=== PATIENT | female | born 1950 | race Caucasian/White ===

== ENCOUNTER 2020-12-31 14:24 | Emergency (ER) | payer MEDICARE, OTHER, MEDICAID ==
[~2020-12-31] VITALS: Ht 160 cm; Wt 48.5 kg
[~2020-12-31 14:24] MED LIST: CLON0.5T PO; HYDR-1421 PO; SERT25TA84 PO
[2020-12-31 14:57] VITALS: BP 108/60
[2020-12-31] MEDS ORDERED: ACETAMINOPHEN 325 MG TAB PO ONE (16:00)
== END 2020-12-31 16:36 | disposition home or self-care (01) ==
LOC: ER 14:24
DX: S63.502A Unspecified sprain of left wrist, initial encounter (principal); Z90.710 Acquired absence of both cervix and uterus; Z88.6 Allergy status to analgesic agent; W18.09XA Striking against other object with subsequent fall, initial encounter; Y93.89 Activity, other specified; Y92.89 Other specified places as the place of occurrence of the external cause; Y99.8 Other external cause status
CPT/HCPCS: 73110

== ENCOUNTER 2021-08-09 12:47 | Emergency (ER) | payer MEDICARE, OTHER, MEDICAID ==
[~2021-08-09] VITALS: Ht 160 cm; Wt 45.4 kg
[2021-08-09] MEDS ORDERED: ASPirin 81 mg TAB PO ONE (13:00)
[2021-08-09 14:36] LABS: Basophils # (auto) 0 10 ^3/uL (0-0.2); Basophils % (auto) 0.3 % (0.0-2.0); Eosinophils # (auto) 0 10 ^3/uL (0-0.8); Eosinophils % (auto) 0.2 % (0.0-7.0); Hematocrit 31.2 % (36.0-46.0); Hemoglobin 10.1 g/dL (12.2-16.2); Lymphocytes # (auto) 1.5 10 ^3/uL (0.4-5.4); Lymphocytes % (auto) 22.2 % (10.0-50.0); Mean Corpuscular Hemoglobin 28.1 pg (28.0-32.0); Mean Corpuscular Hgb Conc. 32.3 g/dL (32.0-36.0); Mean Corpuscular Volume 87.1 fL (80.0-100.0); Monocytes # (auto) 0.8 10 ^3/uL (0-1.3); Monocytes % (auto) 11.4 % (0.0-12.0); Neutrophils # (auto) 4.5 10 ^3/uL (1.6-8.6); Neutrophils % (auto) 65.9 % (37.0-80.0); Nucleated Red Blood Cells % 0.1 %; Red Blood Cells 3.58 10^6/uL (4.0-5.20); Red Cell Distribution Width 19.8 % (11.8-14.3); White Blood Cell 6.8 10^3/uL (4.4-10.8)
[2021-08-09 14:44] LABS: Albumin 2.7 g/dL (3.4-5.0); Calcium 8.6 mg/dL (8.5-10.1); Magnesium 2.7 mg/dL (1.6-2.6); Potassium 3.6 mmol/L (3.5-5.1)
[2021-08-09 14:51] LABS: BUN/Creatinine Ratio 15.9; Bilirubin, Total 0.4 mg/dL (0.2-1.0)
[2021-08-09 15:18] VITALS: BP 97/46
== END 2021-08-09 15:37 | disposition home or self-care (01) ==
LOC: ER 12:47
DX: R07.89 Other chest pain (principal); R06.02 Shortness of breath; R11.2 Nausea with vomiting, unspecified; Z90.710 Acquired absence of both cervix and uterus; Z90.89 Acquired absence of other organs; Z88.6 Allergy status to analgesic agent
CPT/HCPCS: 36415; 71046; 80053; 83735; 84484; 85025; 85379; 93005

== ENCOUNTER 2022-01-07 07:58 | Inpatient (IN) | payer MEDICARE, OTHER, MEDICAID ==
[~2022-01-07] VITALS: Ht 170.2 cm; Wt 38.6 kg
[2022-01-07] VITALS (18 sets, daily range): BP systolic 83–113; BP diastolic 39–52
[2022-01-07] MEDS ORDERED: MORPHINE SULFATE 4 MG/ML SYR/VIAL IV ONE (08:15)
[2022-01-07] MEDS ORDERED: SODIUM CHLORIDE 0.9% 500 ML IVB ONE (08:15)
[2022-01-07] MEDS ORDERED: PANTOPRAZOLE 40 MG/10 ML VIAL INJ IV ONE (08:15)
[2022-01-07] MEDS ORDERED: HYDROmorphone HCL 2 MG/ML VL/or syr IV ONE ×2 (08:30→10:00)
[2022-01-07] MEDS ORDERED: LOPERAMIDE HCL 2 MG CAP/TAB PO ONE (10:00)
[2022-01-07 10:16] LABS: Hemoglobin 15.3 g/dL (12.2-16.2); Mean Corpuscular Hemoglobin 29.9 pg (28.0-32.0); Mean Corpuscular Hgb Conc. 33.3 g/dL (32.0-36.0); Red Blood Cells 5.11 10^6/uL (4.0-5.20); White Blood Cell 13.9 10^3/uL (4.4-10.8)
[2022-01-07 10:21] LABS: Basophils % (manual) 0 (0.0-2.0); Blast Cells 0; Metamyelocytes % 0; Myelocytes % 0; Promyelocytes % 0; Reactive Lymphocytes 0
[2022-01-07 10:38] LABS: Band Neutrophils % (manual) 57; Eosinophils % (manual) 1 (0-7); Lymphocytes % (manual) 14 (10.0-50.0); Monocytes % (manual) 6 (0-12)
[2022-01-07] MEDS: PIPERACILLIN-TAZOB 3.375GM 100 ML IV ONE ×2 (11:38→17:07)
[2022-01-07] MEDS: metroNIDAZOLE 500MG/100ML 100 ML IV ONE ×2 (11:39→12:13)
[2022-01-07 12:30] LABS: INR > 8.0 (0.9-1.15)
[2022-01-07] MEDS ORDERED: PHYTONADIONE (VIT K)10 MG/ML 1ML VIAL SUBCUT ONE (12:30)
[2022-01-07 13:13] LABS: Albumin 2.3 g/dL (3.4-5.0); Calcium 7.7 mg/dL (8.5-10.1); Magnesium 1.9 mg/dL (1.6-2.6); Potassium 3.4 mmol/L (3.5-5.1)
[2022-01-07 13:17] LABS: BUN/Creatinine Ratio 18.2; Bilirubin, Total 0.4 mg/dL (0.2-1.0); Total Protein 6.4 g/dL (6.4-8.2)
[2022-01-07] MEDS ORDERED: NITROGLYCERIN 0.4 MG SL TAB SL PRN (15:15)
[2022-01-07] MEDS ORDERED: ONDANSETRON HCL 4 MG/2 ML VIAL IV PRN (15:15)
[2022-01-07] MEDS ORDERED: MORPHINE SULFATE INJ 2 MG/ml SYRG IV PRN ×2 (15:15)
[2022-01-07 15:24] LABS: INR 2.45 (0.9-1.15)
[2022-01-07] MEDS: SODIUM CHLORIDE 0.9% 1,000 ML IV SCH (17:08)
[2022-01-07] MEDS ORDERED: phytonadione 2.5 MG in SODIUM CHL 0.9% 50 ML IV ONE (17:30)
[2022-01-07] MEDS: HYDROmorphone HCL 2 MG/ML VL/or syr IV PRN ×2 (18:37→22:51)
[2022-01-07] MEDS: MEROPENEM 1GM IVPB 100 ML IV SCH (22:30)
[2022-01-08] VITALS (91 sets, daily range): BP systolic 56–186; BP diastolic 33–114
[2022-01-08] MEDS: SODIUM CHLORIDE 0.9% 1,000 ML IV SCH (03:32)
[2022-01-08 05:38] LABS: Basophils # (auto) 0 10 ^3/uL (0-0.2); Basophils % (auto) 0.1 % (0.0-2.0); Eosinophils # (auto) 0 10 ^3/uL (0-0.8); Hematocrit 33.1 % (36.0-46.0); Hemoglobin 11.3 g/dL (12.2-16.2); Lymphocytes % (auto) 15.8 % (10.0-50.0); Mean Corpuscular Hemoglobin 30.5 pg (28.0-32.0); Mean Corpuscular Hgb Conc. 34.2 g/dL (32.0-36.0); Mean Corpuscular Volume 89.3 fL (80.0-100.0); Monocytes # (auto) 1.4 10 ^3/uL (0-1.3); Monocytes % (auto) 11.2 % (0.0-12.0); Neutrophils # (auto) 9.3 10 ^3/uL (1.6-8.6); Neutrophils % (auto) 72.9 % (37.0-80.0); White Blood Cell 12.8 10^3/uL (4.4-10.8)
[2022-01-08 05:49] LABS: INR 1.4 (0.9-1.15); Partial Thromboplastin Time 41.4 sec (23.6-33.0)
[2022-01-08 06:07] LABS: Albumin 1.5 g/dL (3.4-5.0); Calcium 6.6 mg/dL (8.5-10.1); Magnesium 1.7 mg/dL (1.6-2.6)
[2022-01-08 06:09] LABS: BUN/Creatinine Ratio 33.3
[2022-01-08 06:12] LABS: Bilirubin, Total 0.5 mg/dL (0.2-1.0); Total Protein 4.2 g/dL (6.4-8.2)
[2022-01-08 06:18] LABS: Potassium 2.6 mmol/L (3.5-5.1)
[2022-01-08] MEDS: MEROPENEM 1GM IVPB 100 ML IV SCH ×3 (06:45→22:00)
[2022-01-08] MEDS: POTASSIUM CHL 20MEQ/100ML 100 ML IV SCH ×2 (07:33→11:51)
[2022-01-08] MEDS ORDERED: SUCCINYLCHOLINE CHLORIDE 20 MG/ML 10ML VIAL IV ONE (08:32)
[2022-01-08] MEDS ORDERED: fentaNYL CITRATE 100 MCG/2 ML VL ONE (08:41)
[2022-01-08] MEDS ORDERED: MIDAZOLAM HCL 2MG/2ML 2ml VIAL (1mg/ml) ONE (08:41)
[2022-01-08] MEDS ORDERED: HYDROCORTISONE SOD SUCC 100 MG/2ML INJ VIAL ONE (08:43)
[2022-01-08] MEDS ORDERED: ROCURONIUM 10MG/ML 10ML VIAL IV ONE (08:46)
[2022-01-08] MEDS ORDERED: HYDROmorphone HCL 2 MG/ML VL/or syr ONE (09:16)
[2022-01-08] MEDS ORDERED: ONDANSETRON HCL 4 MG/2 ML VIAL ONE (09:55)
[2022-01-08] MEDS ORDERED: ETOMIDATE (2MG/ML) 20ML VIAL IV ONE (09:55)
[2022-01-08] MEDS ORDERED: POVIDONE IODINE 10 % TOPICAL OINT 30GM TOP ONE (10:29)
[2022-01-08] MEDS: MIDAZOLAM DRIP 50 mg/50mL 50 ML IV SCH ×2 (11:00→21:28)
[2022-01-08] MEDS ORDERED: ONDANSETRON HCL 4 MG/2 ML VIAL IV PRN (11:15)
[2022-01-08] MEDS ORDERED: HYDROmorphone HCL 2 MG/ML VL/or syr IV PRN ×2 (11:15)
[2022-01-08] MEDS ORDERED: ePHEDrine SULFATE 50 MG/ML AMP IV PRN (11:15)
[2022-01-08] MEDS ORDERED: METOCLOPRAMIDE HCL 5MG/ml INJ 2ml VIAL IV PRN (11:15)
[2022-01-08] MEDS ORDERED: SOD CHL 0.9%/ KCL 40MEQ 1,000 ML IV SCH (11:45)
[2022-01-08] MEDS: PROPOFOL 100 ML IV SCH (11:48)
[2022-01-08] MEDS ORDERED: POTASSIUM CHLORIDE 40 MEQ in SOD CHL 0.45% 1,000 ML IV SCH (12:00)
[2022-01-08 12:51] LABS: Basophils # (auto) 0 10 ^3/uL (0-0.2); Basophils % (auto) 0.2 % (0.0-2.0); Eosinophils # (auto) 0 10 ^3/uL (0-0.8); Hematocrit 38.9 % (36.0-46.0); Hemoglobin 13.2 g/dL (12.2-16.2); Lymphocytes # (auto) 1.1 10 ^3/uL (0.4-5.4); Lymphocytes % (auto) 9.4 % (10.0-50.0); Mean Corpuscular Hemoglobin 30.8 pg (28.0-32.0); Mean Corpuscular Hgb Conc. 33.9 g/dL (32.0-36.0); Mean Corpuscular Volume 90.7 fL (80.0-100.0); Monocytes # (auto) 0.6 10 ^3/uL (0-1.3); Monocytes % (auto) 5.4 % (0.0-12.0); Neutrophils # (auto) 10.2 10 ^3/uL (1.6-8.6); Red Blood Cells 4.29 10^6/uL (4.0-5.20); Red Cell Distribution Width 15.5 % (11.8-14.3)
[2022-01-08 13:08] LABS: INR 1.4 (0.9-1.15); Partial Thromboplastin Time 37.9 sec (23.6-33.0)
[2022-01-08 15:59] LABS: Albumin 1.4 g/dL (3.4-5.0); BUN/Creatinine Ratio 37.5; Calcium 6.1 mg/dL (8.5-10.1); Potassium 4.1 mmol/L (3.5-5.1)
[2022-01-08 16:02] LABS: Bilirubin, Total 0.3 mg/dL (0.2-1.0); Total Protein 4.3 g/dL (6.4-8.2)
[2022-01-08] MEDS: fentaNYL Drip 2500mCg/250mlNS 250 ML IV SCH (16:10)
[2022-01-08] MEDS: D5W/SOD CHL 0.45%/KCL 20MEQ 1,000 ML IV SCH (16:56)
[2022-01-08] MEDS: metroNIDAZOLE 500MG/100ML 100 ML IV SCH ×2 (16:57→22:22)
[2022-01-09] VITALS (101 sets, daily range): BP systolic 82–144; BP diastolic 25–63
[2022-01-09 06:32] LABS: Basophils # (auto) 0 10 ^3/uL (0-0.2); Basophils % (auto) 0.2 % (0.0-2.0); Eosinophils # (auto) 0 10 ^3/uL (0-0.8); Eosinophils % (auto) 0.2 % (0.0-7.0); Hematocrit 35.9 % (36.0-46.0); Lymphocytes # (auto) 2.5 10 ^3/uL (0.4-5.4); Lymphocytes % (auto) 23.1 % (10.0-50.0); Mean Corpuscular Hemoglobin 30.4 pg (28.0-32.0); Mean Corpuscular Hgb Conc. 33.3 g/dL (32.0-36.0); Mean Corpuscular Volume 91.2 fL (80.0-100.0); Monocytes # (auto) 1.2 10 ^3/uL (0-1.3); Monocytes % (auto) 11.1 % (0.0-12.0); Neutrophils % (auto) 65.4 % (37.0-80.0); Nucleated Red Blood Cells % 0.2 %; Red Blood Cells 3.94 10^6/uL (4.0-5.20); Red Cell Distribution Width 15.8 % (11.8-14.3); White Blood Cell 10.7 10^3/uL (4.4-10.8)
[2022-01-09 06:40] LABS: Potassium 3.4 mmol/L (3.5-5.1)
[2022-01-09 06:46] LABS: Albumin 1.4 g/dL (3.4-5.0); BUN/Creatinine Ratio 25.7; Calcium 6.4 mg/dL (8.5-10.1)
[2022-01-09 06:49] LABS: Bilirubin, Total 0.4 mg/dL (0.2-1.0); Total Protein 4.2 g/dL (6.4-8.2)
[2022-01-09 06:59] LABS: INR 1.17 (0.9-1.15)
[2022-01-09] MEDS: MEROPENEM 1GM IVPB 100 ML IV SCH ×3 (07:52→22:00)
[2022-01-09] MEDS: D5W/SOD CHL 0.45%/KCL 20MEQ 1,000 ML IV SCH ×3 (08:59→12:45)
[2022-01-09] MEDS ORDERED: cefTRIAXone 1GM/50ML D5W 50 ML IV SCH (09:00)
[2022-01-09] MEDS: fentaNYL Drip 2500mCg/250mlNS 250 ML IV SCH ×2 (11:00→16:26)
[2022-01-09] MEDS: PROPOFOL 100 ML IV SCH ×2 (11:00→20:00)
[2022-01-09] MEDS ORDERED: POTASSIUM CHL 20MEQ/100ML 100 ML IV ONE (11:30)
[2022-01-10] VITALS (101 sets, daily range): BP systolic 88–155; BP diastolic 12–98
[2022-01-10] MEDS: MIDAZOLAM DRIP 50 mg/50mL 50 ML IV SCH (01:35)
[2022-01-10 05:29] LABS: Potassium 3.9 mmol/L (3.5-5.1)
[2022-01-10 05:42] LABS: BUN/Creatinine Ratio 23.3; Calcium 6.5 mg/dL (8.5-10.1)
[2022-01-10] MEDS: MEROPENEM 1GM IVPB 100 ML IV SCH ×3 (06:00→22:20)
[2022-01-10] MEDS: D5W/SOD CHL 0.45%/KCL 20MEQ 1,000 ML IV SCH ×3 (07:56→14:52)
[2022-01-10] MEDS: fentaNYL Drip 2500mCg/250mlNS 250 ML IV SCH (08:01)
[2022-01-10] MEDS: FAMOTIDINE (10MG/ML) 2ML VL IV SCH ×2 (09:33→22:20)
[2022-01-10] MEDS: HYDROmorphone HCL 2 MG/ML VL/or syr IV PRN ×2 (12:12→22:21)
[2022-01-10 22:55] LABS: Basophils # (auto) 0 10 ^3/uL (0-0.2); Basophils % (auto) 0.1 % (0.0-2.0); Eosinophils # (auto) 0 10 ^3/uL (0-0.8); Hematocrit 32.9 % (36.0-46.0); Hemoglobin 11.3 g/dL (12.2-16.2); Lymphocytes # (auto) 1.7 10 ^3/uL (0.4-5.4); Lymphocytes % (auto) 12.1 % (10.0-50.0); Mean Corpuscular Hgb Conc. 34.5 g/dL (32.0-36.0); Mean Corpuscular Volume 89.8 fL (80.0-100.0); Monocytes # (auto) 1.1 10 ^3/uL (0-1.3); Monocytes % (auto) 7.8 % (0.0-12.0); Neutrophils # (auto) 11.4 10 ^3/uL (1.6-8.6); Nucleated Red Blood Cells % 0.2 %; Red Blood Cells 3.66 10^6/uL (4.0-5.20); Red Cell Distribution Width 15.2 % (11.8-14.3); White Blood Cell 14.3 10^3/uL (4.4-10.8)
[2022-01-11] VITALS (71 sets, daily range): BP systolic 86–131; BP diastolic 33–54
[2022-01-11 05:13] LABS: Basophils # (auto) 0 10 ^3/uL (0-0.2); Basophils % (auto) 0.4 % (0.0-2.0); Eosinophils # (auto) 0 10 ^3/uL (0-0.8); Eosinophils % (auto) 0.1 % (0.0-7.0); Hematocrit 31.2 % (36.0-46.0); Hemoglobin 10.8 g/dL (12.2-16.2); Lymphocytes # (auto) 2.1 10 ^3/uL (0.4-5.4); Lymphocytes % (auto) 17.2 % (10.0-50.0); Mean Corpuscular Hemoglobin 30.8 pg (28.0-32.0); Mean Corpuscular Hgb Conc. 34.8 g/dL (32.0-36.0); Mean Corpuscular Volume 88.7 fL (80.0-100.0); Monocytes % (auto) 8.5 % (0.0-12.0); Neutrophils # (auto) 8.9 10 ^3/uL (1.6-8.6); Neutrophils % (auto) 73.8 % (37.0-80.0); Nucleated Red Blood Cells % 0.1 %; Red Blood Cells 3.52 10^6/uL (4.0-5.20); Red Cell Distribution Width 14.7 % (11.8-14.3); White Blood Cell 12.1 10^3/uL (4.4-10.8)
[2022-01-11 05:30] LABS: Albumin 1.4 g/dL (3.4-5.0); Calcium 7.3 mg/dL (8.5-10.1); Potassium 3.1 mmol/L (3.5-5.1)
[2022-01-11 05:35] LABS: Bilirubin, Total 0.9 mg/dL (0.2-1.0); Total Protein 4.3 g/dL (6.4-8.2)
[2022-01-11] MEDS: D5W/SOD CHL 0.45%/KCL 20MEQ 1,000 ML IV SCH ×3 (07:22→14:45)
[2022-01-11] MEDS: HYDROmorphone HCL 2 MG/ML VL/or syr IV PRN ×4 (07:23→20:10)
[2022-01-11] MEDS: MEROPENEM 1GM IVPB 100 ML IV SCH ×2 (10:40→22:14)
[2022-01-11] MEDS: PANTOPRAZOLE 40 MG/10 ML VIAL INJ IV SCH ×2 (10:40→22:14)
[2022-01-11] MEDS: POTASSIUM CHL 20MEQ/100ML 100 ML IV SCH ×3 (10:41→17:12)
[2022-01-11] MEDS: fentaNYL Drip 2500mCg/250mlNS 250 ML IV SCH (11:00)
[2022-01-11] MEDS: PROPOFOL 100 ML IV SCH (11:00)
[2022-01-11] MEDS: MIDAZOLAM DRIP 50 mg/50mL 50 ML IV SCH (11:00)
[2022-01-11] MEDS ORDERED: TPN PER PHARMACY 0 ML IV SCH (13:30)
[2022-01-11] MEDS ORDERED: LIDOCAINE 1% (LOCAL ANESTH.) PF 5ml SDV ID ONE (15:45)
[2022-01-11] MEDS ORDERED: ALBUTEROL SULF 2.5 MG/0.5ML(0.5%) NEB SOLN NEB ONE (18:30)
[2022-01-11] MEDS ORDERED: IPRATROPIUM BROM 0.5 MG/2.5ML INH SOL NEB ONE (18:30)
[2022-01-11] MEDS ORDERED: POTASSIUM CHLORIDE 40 MEQ, LIDOCAINE 1% (LOCAL ANESTH.) 4 ML in SODIUM CHL 0.9% 250 ML IV ONE (18:45)
[2022-01-11] MEDS ORDERED: AMINO ACID INFUSION IN D10W 1,000 ML IV NR (20:00)
[2022-01-11] MEDS: SODIUM CHLOR 0.9% PF (SALINE LOCK) 10ML VIAL/SYR IV SCH (22:14)
[2022-01-11] MEDS: IPRATROPIUM BROM 0.5 MG/2.5ML INH SOL NEB SCH (23:04)
[2022-01-11] MEDS: ALBUTEROL SULF 2.5 MG/0.5ML(0.5%) NEB SOLN NEB SCH (23:04)
[2022-01-12] VITALS (23 sets, daily range): BP systolic 99–141; BP diastolic 29–59
[2022-01-12] MEDS ORDERED: DEXTROSE (50%) 50ML SYRG IV SCH
[2022-01-12] MEDS: ACCU-CHEK COMFORT CURVE STRIP VI SCH ×4 (00:18→18:28)
[2022-01-12] MEDS: HYDROmorphone HCL 2 MG/ML VL/or syr IV PRN ×5 (00:19→22:40)
[2022-01-12] MEDS: D5W/SOD CHL 0.45%/KCL 20MEQ 1,000 ML IV SCH ×3 (00:28→22:11)
[2022-01-12 05:27] LABS: Basophils # (auto) 0 10 ^3/uL (0-0.2); Basophils % (auto) 0.1 % (0.0-2.0); Eosinophils # (auto) 0 10 ^3/uL (0-0.8); Eosinophils % (auto) 0.1 % (0.0-7.0); Hematocrit 30.9 % (36.0-46.0); Hemoglobin 10.3 g/dL (12.2-16.2); Lymphocytes # (auto) 2.1 10 ^3/uL (0.4-5.4); Mean Corpuscular Hemoglobin 30.2 pg (28.0-32.0); Mean Corpuscular Hgb Conc. 33.5 g/dL (32.0-36.0); Mean Corpuscular Volume 90.1 fL (80.0-100.0); Monocytes # (auto) 1.3 10 ^3/uL (0-1.3); Monocytes % (auto) 8.7 % (0.0-12.0); Neutrophils # (auto) 11.5 10 ^3/uL (1.6-8.6); Neutrophils % (auto) 77.1 % (37.0-80.0); Nucleated Red Blood Cells % 0.1 %; Red Blood Cells 3.43 10^6/uL (4.0-5.20); Red Cell Distribution Width 14.8 % (11.8-14.3); White Blood Cell 14.8 10^3/uL (4.4-10.8)
[2022-01-12 05:39] LABS: Calcium 7.6 mg/dL (8.5-10.1); Magnesium 1.8 mg/dL (1.6-2.6); Potassium 3.3 mmol/L (3.5-5.1)
[2022-01-12 05:45] LABS: Albumin 1.5 g/dL (3.4-5.0); BUN/Creatinine Ratio 9.7; Bilirubin, Total 0.9 mg/dL (0.2-1.0); Total Protein 4.8 g/dL (6.4-8.2)
[2022-01-12 05:48] LABS: Phosphorus 0.4 mg/dL (2.5-4.90)
[2022-01-12] MEDS: ALBUTEROL SULF 2.5 MG/0.5ML(0.5%) NEB SOLN NEB SCH ×3 (06:00→18:45)
[2022-01-12] MEDS: IPRATROPIUM BROM 0.5 MG/2.5ML INH SOL NEB SCH ×3 (06:00→18:45)
[2022-01-12] MEDS: InsuLIN REG 1unit/0.01ml Soln (100units/ml) SC SCH ×4 (06:15→18:00)
[2022-01-12] MEDS ORDERED: POTASSIUM PHOSPHATE 17.6 MEQ in SODIUM CHL 0.9% 100 ML IV ONE (07:00)
[2022-01-12] MEDS ORDERED: POTASSIUM PHOSPHATE 44 MEQ in D5W 5% 250 ML IV ONE (08:00)
[2022-01-12] MEDS: MEROPENEM 1GM IVPB 100 ML IV SCH ×2 (09:50→22:03)
[2022-01-12] MEDS: PANTOPRAZOLE 40 MG/10 ML VIAL INJ IV SCH ×2 (09:51→22:04)
[2022-01-12] MEDS: SODIUM CHLOR 0.9% PF (SALINE LOCK) 10ML VIAL/SYR IV SCH ×2 (09:51→22:04)
[2022-01-12] MEDS ORDERED: TPN PER PHARMACY IV NR ×11 (20:00)
[2022-01-13] VITALS (21 sets, daily range): BP systolic 100–141; BP diastolic 38–66
[2022-01-13] MEDS: ACCU-CHEK COMFORT CURVE STRIP VI SCH ×4 (00:12→17:59)
[2022-01-13] MEDS: InsuLIN REG 1unit/0.01ml Soln (100units/ml) SC SCH ×4 (00:18→17:48)
[2022-01-13] MEDS: ALBUTEROL SULF 2.5 MG/0.5ML(0.5%) NEB SOLN NEB SCH ×3 (00:28→18:28)
[2022-01-13] MEDS: IPRATROPIUM BROM 0.5 MG/2.5ML INH SOL NEB SCH ×3 (00:28→18:28)
[2022-01-13] MEDS: HYDROmorphone HCL 2 MG/ML VL/or syr IV PRN ×2 (03:06→22:06)
[2022-01-13 05:42] LABS: Calcium 7.3 mg/dL (8.5-10.1); Potassium 3.4 mmol/L (3.5-5.1)
[2022-01-13 05:48] LABS: Albumin 1.5 g/dL (3.4-5.0); BUN/Creatinine Ratio 21.7; Bilirubin, Total 0.4 mg/dL (0.2-1.0); Magnesium 2.3 mg/dL (1.6-2.6); Total Protein 5.2 g/dL (6.4-8.2)
[2022-01-13] MEDS ORDERED: POTASSIUM PHOSPHATE 22 MEQ in SODIUM CHL 0.9% 100 ML IV ONE (08:00)
[2022-01-13 08:12] LABS: Basophils # (auto) 0.1 10 ^3/uL (0-0.2); Basophils % (auto) 0.5 % (0.0-2.0); Eosinophils # (auto) 0 10 ^3/uL (0-0.8); Eosinophils % (auto) 0.1 % (0.0-7.0); Hematocrit 32.8 % (36.0-46.0); Hemoglobin 10.9 g/dL (12.2-16.2); Lymphocytes % (auto) 15.7 % (10.0-50.0); Mean Corpuscular Hemoglobin 30.3 pg (28.0-32.0); Mean Corpuscular Hgb Conc. 33.4 g/dL (32.0-36.0); Mean Corpuscular Volume 90.5 fL (80.0-100.0); Monocytes # (auto) 1.1 10 ^3/uL (0-1.3); Monocytes % (auto) 9.1 % (0.0-12.0); Neutrophils # (auto) 9.3 10 ^3/uL (1.6-8.6); Neutrophils % (auto) 74.6 % (37.0-80.0); Nucleated Red Blood Cells % 0.2 %; Red Blood Cells 3.62 10^6/uL (4.0-5.20); Red Cell Distribution Width 14.9 % (11.8-14.3); White Blood Cell 12.5 10^3/uL (4.4-10.8)
[2022-01-13] MEDS ORDERED: OMNIPAQUE ORAL SOLN 500ml 12mg/ml PO ONE (08:24)
[2022-01-13] MEDS: SODIUM CHLOR 0.9% PF (SALINE LOCK) 10ML VIAL/SYR IV SCH ×2 (10:00→22:00)
[2022-01-13] MEDS: MEROPENEM 1GM IVPB 100 ML IV SCH ×2 (10:35→21:31)
[2022-01-13] MEDS: PANTOPRAZOLE 40 MG/10 ML VIAL INJ IV SCH ×2 (10:35→22:00)
[2022-01-13] MEDS: D5W/SOD CHL 0.45%/KCL 20MEQ 1,000 ML IV SCH (11:00)
[2022-01-13] MEDS: KETOROLAC TROMETH 30 MG/ML 1ML VIAL IV PRN (17:40)
[2022-01-13] MEDS ORDERED: TPN PER PHARMACY IV NR ×10 (20:00)
[2022-01-14] VITALS (19 sets, daily range): BP systolic 97–149; BP diastolic 40–73
[2022-01-14] MEDS: ALBUTEROL SULF 2.5 MG/0.5ML(0.5%) NEB SOLN NEB SCH ×4 (00:03→18:24)
[2022-01-14] MEDS: IPRATROPIUM BROM 0.5 MG/2.5ML INH SOL NEB SCH ×4 (00:03→18:24)
[2022-01-14] MEDS: D5W/SOD CHL 0.45%/KCL 20MEQ 1,000 ML IV SCH ×2 (00:24→13:15)
[2022-01-14] MEDS: ACCU-CHEK COMFORT CURVE STRIP VI SCH ×4 (00:25→18:24)
[2022-01-14] MEDS: InsuLIN REG 1unit/0.01ml Soln (100units/ml) SC SCH ×4 (05:13→18:08)
[2022-01-14 05:45] LABS: Potassium 4.2 mmol/L (3.5-5.1)
[2022-01-14 05:53] LABS: Albumin 1.7 g/dL (3.4-5.0); BUN/Creatinine Ratio 29.6; Calcium 7.9 mg/dL (8.5-10.1); Magnesium 2.4 mg/dL (1.6-2.6)
[2022-01-14 05:56] LABS: Bilirubin, Total 0.4 mg/dL (0.2-1.0); Phosphorus 2.1 mg/dL (2.5-4.90); Total Protein 5.9 g/dL (6.4-8.2)
[2022-01-14] MEDS: KETOROLAC TROMETH 30 MG/ML 1ML VIAL IV PRN (08:33)
[2022-01-14] MEDS: PANTOPRAZOLE 40 MG/10 ML VIAL INJ IV SCH ×2 (10:11→21:48)
[2022-01-14] MEDS: MEROPENEM 1GM IVPB 100 ML IV SCH ×2 (10:12→21:48)
[2022-01-14] MEDS: SODIUM CHLOR 0.9% PF (SALINE LOCK) 10ML VIAL/SYR IV SCH ×2 (11:10→21:49)
[2022-01-14] MEDS ORDERED: SODIUM PHOSPH 24MEQ(18MMOL) IN NS 100 ML IV ONE (11:30)
[2022-01-14] MEDS ORDERED: ACETAMINOPHEN/CODEINE#3 (300/30mg) TAB PO PRN (12:00)
[2022-01-14] MEDS ORDERED: KETOROLAC TROMETH 30 MG/ML 1ML VIAL IV PRN (12:45)
[2022-01-14] MEDS ORDERED: POTASSIUM PHOSPHATE 22 MEQ in SODIUM CHL 0.9% 100 ML IV ONE (18:45)
[2022-01-14] MEDS ORDERED: clonazePAM 0.5 MG TAB PO PRN (19:00)
[2022-01-14] MEDS: TPN PER PHARMACY IV NR ×9 (21:11)
[2022-01-15] MEDS: ACCU-CHEK COMFORT CURVE STRIP VI SCH ×5 (00:10→23:35)
[2022-01-15] MEDS: InsuLIN REG 1unit/0.01ml Soln (100units/ml) SC SCH ×5 (00:21→23:36)
[2022-01-15] MEDS: IPRATROPIUM BROM 0.5 MG/2.5ML INH SOL NEB SCH ×4 (00:23→19:10)
[2022-01-15] MEDS: ALBUTEROL SULF 2.5 MG/0.5ML(0.5%) NEB SOLN NEB SCH ×4 (00:23→19:10)
[2022-01-15 03:50] VITALS: BP 122/52
[2022-01-15] MEDS: D5W/SOD CHL 0.45%/KCL 20MEQ 1,000 ML IV SCH (05:34)
[2022-01-15 05:51] LABS: Basophils # (auto) 0.1 10 ^3/uL (0-0.2); Basophils % (auto) 0.4 % (0.0-2.0); Eosinophils # (auto) 0.1 10 ^3/uL (0-0.8); Eosinophils % (auto) 0.5 % (0.0-7.0); Hematocrit 34.1 % (36.0-46.0); Hemoglobin 11.4 g/dL (12.2-16.2); Lymphocytes # (auto) 1.8 10 ^3/uL (0.4-5.4); Lymphocytes % (auto) 12.1 % (10.0-50.0); Mean Corpuscular Hemoglobin 30.5 pg (28.0-32.0); Mean Corpuscular Hgb Conc. 33.3 g/dL (32.0-36.0); Mean Corpuscular Volume 91.5 fL (80.0-100.0); Monocytes # (auto) 0.9 10 ^3/uL (0-1.3); Neutrophils # (auto) 12.4 10 ^3/uL (1.6-8.6); Red Blood Cells 3.72 10^6/uL (4.0-5.20); Red Cell Distribution Width 15.1 % (11.8-14.3); White Blood Cell 15.3 10^3/uL (4.4-10.8)
[2022-01-15 06:13] LABS: Albumin 1.6 g/dL (3.4-5.0); BUN/Creatinine Ratio 39.1; Calcium 8.2 mg/dL (8.5-10.1); Magnesium 2.7 mg/dL (1.6-2.6)
[2022-01-15 06:16] LABS: Bilirubin, Total 0.4 mg/dL (0.2-1.0); Phosphorus 3.1 mg/dL (2.5-4.90); Total Protein 5.6 g/dL (6.4-8.2)
[2022-01-15 09:00] VITALS: BP 99/50
[2022-01-15] MEDS: MEROPENEM 1GM IVPB 100 ML IV SCH ×2 (10:57→21:33)
[2022-01-15] MEDS: PANTOPRAZOLE 40 MG/10 ML VIAL INJ IV SCH ×2 (10:59→21:33)
[2022-01-15] MEDS: ACETAMINOPHEN/CODEINE#3 (300/30mg) TAB PO PRN ×2 (10:59→16:44)
[2022-01-15] MEDS: SODIUM CHLOR 0.9% PF (SALINE LOCK) 10ML VIAL/SYR IV SCH ×2 (10:59→21:34)
[2022-01-15 12:32] VITALS: BP 106/52
[2022-01-15] MEDS ORDERED: clonazePAM 0.5 MG TAB PO ONE (13:30)
[2022-01-15 16:46] VITALS: BP 114/61
[2022-01-15] MEDS: TPN PER PHARMACY IV NR ×9 (19:57)
[2022-01-15] MEDS ORDERED: TPN PER PHARMACY IV NR ×8 (20:00)
[2022-01-15] MEDS ORDERED: D5W/SOD CHL 0.45%/KCL 20MEQ 1,000 ML IV SCH (20:00)
[2022-01-15 22:00] VITALS: BP 105/50
[2022-01-15] MEDS: clonazePAM 0.5 MG TAB PO PRN (23:36)
[2022-01-16] MEDS: IPRATROPIUM BROM 0.5 MG/2.5ML INH SOL NEB SCH ×4 (00:19→18:25)
[2022-01-16] MEDS: ALBUTEROL SULF 2.5 MG/0.5ML(0.5%) NEB SOLN NEB SCH ×4 (00:19→18:26)
[2022-01-16 05:00] VITALS: BP 99/47
[2022-01-16] MEDS: ACCU-CHEK COMFORT CURVE STRIP VI SCH ×3 (05:57→16:38)
[2022-01-16] MEDS: InsuLIN REG 1unit/0.01ml Soln (100units/ml) SC SCH ×3 (05:57→16:37)
[2022-01-16 06:10] LABS: Basophils # (auto) 0.1 10 ^3/uL (0-0.2); Basophils % (auto) 0.6 % (0.0-2.0); Calcium 7.9 mg/dL (8.5-10.1); Eosinophils # (auto) 0.2 10 ^3/uL (0-0.8); Eosinophils % (auto) 1.3 % (0.0-7.0); Hematocrit 31.9 % (36.0-46.0); Hemoglobin 10.8 g/dL (12.2-16.2); Lymphocytes # (auto) 2.3 10 ^3/uL (0.4-5.4); Mean Corpuscular Hemoglobin 31.2 pg (28.0-32.0); Mean Corpuscular Hgb Conc. 33.8 g/dL (32.0-36.0); Mean Corpuscular Volume 92.3 fL (80.0-100.0); Monocytes # (auto) 0.8 10 ^3/uL (0-1.3); Monocytes % (auto) 6.3 % (0.0-12.0); Neutrophils % (auto) 72.8 % (37.0-80.0); Nucleated Red Blood Cells % 0.1 %; Red Blood Cells 3.46 10^6/uL (4.0-5.20); Red Cell Distribution Width 15.2 % (11.8-14.3); White Blood Cell 12.3 10^3/uL (4.4-10.8)
[2022-01-16 06:18] LABS: Albumin 1.4 g/dL (3.4-5.0); BUN/Creatinine Ratio 39.3; Bilirubin, Total 0.4 mg/dL (0.2-1.0); Magnesium 2.2 mg/dL (1.6-2.6); Pre Albumin 8.2 mg/dL (20.0-40.0); Total Protein 5.5 g/dL (6.4-8.2)
[2022-01-16 09:10] VITALS: BP 97/51
[2022-01-16] MEDS: MEROPENEM 1GM IVPB 100 ML IV SCH ×2 (10:05→22:04)
[2022-01-16] MEDS: SODIUM CHLOR 0.9% PF (SALINE LOCK) 10ML VIAL/SYR IV SCH ×2 (10:06→22:00)
[2022-01-16] MEDS: PANTOPRAZOLE 40 MG/10 ML VIAL INJ IV SCH ×2 (10:06→22:04)
[2022-01-16] MEDS: clonazePAM 0.5 MG TAB PO PRN (10:07)
[2022-01-16 13:00] VITALS: BP 103/52
[2022-01-16] MEDS: ACETAMINOPHEN/CODEINE#3 (300/30mg) TAB PO PRN ×2 (14:23→22:05)
[2022-01-16 17:00] VITALS: BP 105/54
[2022-01-16] MEDS ORDERED: TPN PER PHARMACY IV NR ×8 (20:00)
[2022-01-16 21:39] VITALS: BP 97/55
[2022-01-17] MEDS: ALBUTEROL SULF 2.5 MG/0.5ML(0.5%) NEB SOLN NEB SCH ×4 (00:09→18:47)
[2022-01-17] MEDS: IPRATROPIUM BROM 0.5 MG/2.5ML INH SOL NEB SCH ×4 (00:09→18:47)
[2022-01-17 05:50] VITALS: BP 105/52
[2022-01-17] MEDS: ACCU-CHEK COMFORT CURVE STRIP VI SCH ×3 (05:51→12:43)
[2022-01-17] MEDS: ACETAMINOPHEN/CODEINE#3 (300/30mg) TAB PO PRN ×3 (05:52→20:37)
[2022-01-17] MEDS: InsuLIN REG 1unit/0.01ml Soln (100units/ml) SC SCH ×3 (05:52→12:00)
[2022-01-17 08:59] VITALS: BP 107/50
[2022-01-17 09:16] LABS: Albumin 1.6 g/dL (3.4-5.0); Calcium 7.9 mg/dL (8.5-10.1); Magnesium 2.6 mg/dL (1.6-2.6); Potassium 3.8 mmol/L (3.5-5.1)
[2022-01-17 09:22] LABS: BUN/Creatinine Ratio 33.3; Bilirubin, Total 0.3 mg/dL (0.2-1.0); Phosphorus 2.9 mg/dL (2.5-4.90)
[2022-01-17 10:46] LABS: INR 1.05 (0.9-1.15); Partial Thromboplastin Time 31.8 sec (23.6-33.0)
[2022-01-17] MEDS: MEROPENEM 1GM IVPB 100 ML IV SCH (11:10)
[2022-01-17] MEDS: PANTOPRAZOLE 40 MG/10 ML VIAL INJ IV SCH (11:11)
[2022-01-17] MEDS: SODIUM CHLOR 0.9% PF (SALINE LOCK) 10ML VIAL/SYR IV SCH (11:11)
[2022-01-17] MEDS: clonazePAM 0.5 MG TAB PO PRN (11:12)
[2022-01-17 13:30] VITALS: BP 101/55
[2022-01-17 17:00] VITALS: BP 100/55
[2022-01-17 17:37] VITALS: BP 126/72
[2022-01-17] MEDS ORDERED: TPN PER PHARMACY IV NR ×7 (20:00)
[2022-01-17 21:05] VITALS: BP 100/55
== END 2022-01-17 20:50 | DRG 853 ==
LOC: ER 07:58 → EDBD 07:58 → TELE 15:09 → DOU IN ICU 19:29 → ICU CENTRL 19:56 → DOU IN ICU 01-12 23:30 → WEST WING 01-14 18:19
PROVIDERS: ADMIT Internal Medicine; ATTEND Internal Medicine
PROC: 30233K1 Transfusion of Nonautologous Frozen Plasma into Peripheral Vein, Percutaneous Approach (ICD-10-PCS; 2022-01-07)
PROC: 0DTN0ZZ Resection of Sigmoid Colon, Open Approach (ICD-10-PCS; 2022-01-08)
PROC: 0D1N0Z4 Bypass Sigmoid Colon to Cutaneous, Open Approach (ICD-10-PCS; 2022-01-08)
PROC: 5A1945Z Respiratory Ventilation, 24-96 Consecutive Hours (ICD-10-PCS; 2022-01-08)
PROC: 0BH17EZ Insertion of Endotracheal Airway into Trachea, Via Natural or Artificial Opening (ICD-10-PCS; 2022-01-08)
PROC: 0DTJ0ZZ Resection of Appendix, Open Approach (ICD-10-PCS; principal; 2022-01-08 08:43)
DX: A41.9 Sepsis, unspecified organism (principal); K55.069 Acute infarction of intestine, part and extent unspecified; D65 Disseminated intravascular coagulation [defibrination syndrome]; K65.9 Peritonitis, unspecified; J96.01 Acute respiratory failure with hypoxia; G93.41 Metabolic encephalopathy; D68.59 Other primary thrombophilia; I25.10 Atherosclerotic heart disease of native coronary artery without angina pectoris; E11.9 Type 2 diabetes mellitus without complications; I10 Essential (primary) hypertension; E87.6 Hypokalemia; Z93.3 Colostomy status; Z88.6 Allergy status to analgesic agent; Z90.710 Acquired absence of both cervix and uterus
CPT/HCPCS: 36415; 36569; 36600; 70450; 71045; 71260; 72192; 74176; 74177; 80048; 80053; 82040; 82150; 82805; 82962; 83036; 83605; 83690; 83735; 84100; 84478; 85007; 85025; 85027; 85610; 85730; 86850; 86900; 86901; 86922; 87040; 87070; 87075; 87081; 87205; 92610; 93005; 94002; 94003; 94640; 96361; 96374; 96375; 97110; 97116; 97530; C9113; G0378; J0330; J1815; J1885; J2001; J2185; J2250; J2405; J2543; J2704; J3430; J3480; J3490; J7060

== ENCOUNTER 2022-02-06 07:16 | Inpatient (IN) | payer MEDICARE, OTHER, MEDICAID ==
[~2022-02-06] VITALS: Ht 162.6 cm; Wt 41.8 kg
[2022-02-06] MEDS ORDERED: HYDROmorphone HCL 2 MG/ML VL/or syr IV ONE ×2 (08:30→14:30)
[2022-02-06] MEDS ORDERED: SODIUM CHLORIDE 0.9% 500 ML IVB ONE (08:30)
[2022-02-06] MEDS ORDERED: SODIUM CHLORIDE 0.9% 1,000 ML IV ONE (08:30)
[2022-02-06] MEDS ORDERED: ONDANSETRON HCL 4 MG/2 ML VIAL IV ONE ×2 (08:30→14:30)
[2022-02-06 09:13] LABS: Basophils # (auto) 0 10 ^3/uL (0-0.2); Basophils % (auto) 0.4 % (0.0-2.0); Eosinophils # (auto) 0 10 ^3/uL (0-0.8); Eosinophils % (auto) 0.1 % (0.0-7.0); Hematocrit 37.4 % (36.0-46.0); Hemoglobin 12.1 g/dL (12.2-16.2); Lymphocytes # (auto) 1.2 10 ^3/uL (0.4-5.4); Lymphocytes % (auto) 16.1 % (10.0-50.0); Mean Corpuscular Hemoglobin 30.2 pg (28.0-32.0); Mean Corpuscular Hgb Conc. 32.3 g/dL (32.0-36.0); Mean Corpuscular Volume 93.4 fL (80.0-100.0); Monocytes # (auto) 0.3 10 ^3/uL (0-1.3); Monocytes % (auto) 4.6 % (0.0-12.0); Neutrophils # (auto) 5.9 10 ^3/uL (1.6-8.6); Neutrophils % (auto) 78.8 % (37.0-80.0); Nucleated Red Blood Cells % 0.1 %; Red Blood Cells 4.01 10^6/uL (4.0-5.20); Red Cell Distribution Width 18.6 % (11.8-14.3); White Blood Cell 7.4 10^3/uL (4.4-10.8)
[2022-02-06 09:23] LABS: Albumin 2.3 g/dL (3.4-5.0); Calcium 8.3 mg/dL (8.5-10.1); Magnesium 2.2 mg/dL (1.6-2.6); Potassium 3.3 mmol/L (3.5-5.1)
[2022-02-06 09:26] LABS: BUN/Creatinine Ratio 21.1; Bilirubin, Total 0.3 mg/dL (0.2-1.0); Total Protein 6.2 g/dL (6.4-8.2)
[2022-02-06 10:25] LABS: INR 1.16 (0.9-1.15)
[2022-02-06 10:26] LABS: Partial Thromboplastin Time 29.6 sec (23.6-33.0)
[2022-02-06] MEDS ORDERED: IOHEXOL 300 MG/ML 100ML BOTTLE IJ ONE (10:27)
[2022-02-06 13:18] LABS: Urine Bacteria MANY /hpf (None Seen); Urine Blood TRACE /uL (Negative); Urine Mucus FEW (None Seen); Urine Specific Gravity 1.036 (1.001-1.035); Urine WBC 33 /hpf (0 - 5)
[2022-02-06] MEDS ORDERED: ONDANSETRON HCL 4 MG/2 ML VIAL IV PRN ×2 (14:15→16:45)
[2022-02-06] MEDS ORDERED: LACTATED RINGER'S 1,000 ML IV ONE (14:15)
[2022-02-06] MEDS: metroNIDAZOLE 500MG/100ML 100 ML IV SCH ×2 (14:52→22:32)
[2022-02-06] MEDS ORDERED: ACETAMINOPHEN 325 MG TAB PO PRN (16:45)
[2022-02-06] MEDS ORDERED: DOCUSATE SOD 100 MG CAP PO PRN (16:45)
[2022-02-06] MEDS ORDERED: POTASSIUM EFFERVESENT TAB 25 MEQ GT ONE (16:45)
[2022-02-06] MEDS: cefTRIAXone 1GM/50ML D5W 50 ML IV SCH (17:26)
[2022-02-06] MEDS ORDERED: HYDROmorphone HCL 2 MG/ML VL/or syr IV SCH ×2 (18:00)
[2022-02-06] MEDS: HYDROmorphone HCL 2 MG/ML VL/or syr IV SCH (20:27)
[2022-02-06 22:00] VITALS: BP 97/59
[2022-02-06] MEDS: HYDROcodone-ACET 5/325MG TAB PO PRN (22:33)
[2022-02-06] MEDS: SODIUM CHLOR 0.9% PF (SALINE LOCK) 10ML VIAL/SYR IV SCH (22:33)
[2022-02-07 05:00] VITALS: BP 95/58
[2022-02-07 05:19] LABS: Basophils # (auto) 0 10 ^3/uL (0-0.2); Basophils % (auto) 0.4 % (0.0-2.0); Eosinophils # (auto) 0 10 ^3/uL (0-0.8); Eosinophils % (auto) 0.2 % (0.0-7.0); Hematocrit 39.6 % (36.0-46.0); Hemoglobin 12.8 g/dL (12.2-16.2); Lymphocytes # (auto) 2.4 10 ^3/uL (0.4-5.4); Lymphocytes % (auto) 28.8 % (10.0-50.0); Mean Corpuscular Hemoglobin 30.2 pg (28.0-32.0); Mean Corpuscular Hgb Conc. 32.2 g/dL (32.0-36.0); Mean Corpuscular Volume 93.9 fL (80.0-100.0); Monocytes # (auto) 0.7 10 ^3/uL (0-1.3); Monocytes % (auto) 7.9 % (0.0-12.0); Neutrophils # (auto) 5.2 10 ^3/uL (1.6-8.6); Neutrophils % (auto) 62.7 % (37.0-80.0); Nucleated Red Blood Cells % 0.1 %; Red Blood Cells 4.22 10^6/uL (4.0-5.20); Red Cell Distribution Width 18.6 % (11.8-14.3); White Blood Cell 8.3 10^3/uL (4.4-10.8)
[2022-02-07] MEDS: HYDROcodone-ACET 5/325MG TAB PO PRN ×3 (05:32→20:07)
[2022-02-07] MEDS: metroNIDAZOLE 500MG/100ML 100 ML IV SCH ×3 (05:32→22:23)
[2022-02-07] MEDS: SODIUM CHLOR 0.9% PF (SALINE LOCK) 10ML VIAL/SYR IV SCH ×3 (05:33→22:22)
[2022-02-07 05:37] LABS: Potassium 3.5 mmol/L (3.5-5.1)
[2022-02-07 05:50] LABS: Albumin 2.1 g/dL (3.4-5.0); BUN/Creatinine Ratio 22.6; Bilirubin, Total 0.3 mg/dL (0.2-1.0); Calcium 7.9 mg/dL (8.5-10.1); Total Protein 5.4 g/dL (6.4-8.2)
[2022-02-07 09:00] VITALS: BP 73/40
[2022-02-07] MEDS ORDERED: cefTRIAXone 1GM/50ML D5W 50 ML IV SCH (10:00)
[2022-02-07] MEDS: cefTRIAXone 1GM/50ML D5W 50 ML IV SCH (10:13)
[2022-02-07] MEDS: HYDROmorphone HCL 2 MG/ML VL/or syr IV SCH ×2 (12:00→18:00)
[2022-02-07 13:00] VITALS: BP 95/53
[2022-02-07] MEDS: D5W/SOD CHL 0.45% 1,000 ML IV SCH (13:25)
[2022-02-07 17:00] VITALS: BP 89/48
[2022-02-07 22:11] VITALS: BP 101/49
[2022-02-08 06:06] LABS: INR 1.31 (0.9-1.15)
[2022-02-08 06:12] LABS: Calcium 7.5 mg/dL (8.5-10.1)
[2022-02-08] MEDS: SODIUM CHLOR 0.9% PF (SALINE LOCK) 10ML VIAL/SYR IV SCH ×3 (06:14→22:05)
[2022-02-08] MEDS: metroNIDAZOLE 500MG/100ML 100 ML IV SCH ×3 (06:14→22:05)
[2022-02-08] MEDS: D5W/SOD CHL 0.45% 1,000 ML IV SCH ×2 (06:15→11:36)
[2022-02-08] MEDS: HYDROcodone-ACET 5/325MG TAB PO PRN ×2 (06:15→18:17)
[2022-02-08 06:19] LABS: Albumin 1.8 g/dL (3.4-5.0); BUN/Creatinine Ratio 28.6; Bilirubin, Total 0.4 mg/dL (0.2-1.0); Magnesium 2.1 mg/dL (1.6-2.6); Total Protein 4.9 g/dL (6.4-8.2)
[2022-02-08 06:31] LABS: Potassium 2.8 mmol/L (3.5-5.1)
[2022-02-08 06:40] LABS: Basophils # (auto) 0 10 ^3/uL (0-0.2); Basophils % (auto) 0.6 % (0.0-2.0); Eosinophils # (auto) 0.1 10 ^3/uL (0-0.8); Eosinophils % (auto) 0.9 % (0.0-7.0); Hematocrit 36.5 % (36.0-46.0); Hemoglobin 11.9 g/dL (12.2-16.2); Lymphocytes # (auto) 2.1 10 ^3/uL (0.4-5.4); Lymphocytes % (auto) 30.5 % (10.0-50.0); Mean Corpuscular Hemoglobin 31.3 pg (28.0-32.0); Mean Corpuscular Hgb Conc. 32.7 g/dL (32.0-36.0); Mean Corpuscular Volume 95.8 fL (80.0-100.0); Monocytes # (auto) 0.5 10 ^3/uL (0-1.3); Monocytes % (auto) 7.9 % (0.0-12.0); Neutrophils # (auto) 4.1 10 ^3/uL (1.6-8.6); Neutrophils % (auto) 60.1 % (37.0-80.0); Nucleated Red Blood Cells % 0.2 %; Red Blood Cells 3.81 10^6/uL (4.0-5.20); Red Cell Distribution Width 19.1 % (11.8-14.3); White Blood Cell 6.7 10^3/uL (4.4-10.8)
[2022-02-08] MEDS ORDERED: GASTROGRAFIN 120 ML SOL ONE (08:23)
[2022-02-08 09:00] VITALS: BP 106/50
[2022-02-08] MEDS ORDERED: CLON-853 PO (09:40)
[2022-02-08] MEDS: PANTOPRAZOLE 40 MG/10 ML VIAL INJ IV SCH (10:50)
[2022-02-08] MEDS: ENOXAPARIN SOD 40 MG/0.4 ML SYRINGE SC SCH (10:50)
[2022-02-08] MEDS: cefTRIAXone 1GM/50ML D5W 50 ML IV SCH (10:50)
[2022-02-08] MEDS ORDERED: clonazePAM 0.5 MG TAB PO PRN (11:30)
[2022-02-08 13:00] VITALS: BP 110/46
[2022-02-08] MEDS: POTASSIUM CHL 20MEQ/100ML 100 ML IV SCH ×2 (13:17→15:03)
[2022-02-08 17:16] VITALS: BP 103/55
[2022-02-08 22:00] VITALS: BP 109/60
[2022-02-09] MEDS: HYDROcodone-ACET 5/325MG TAB PO PRN ×3 (01:51→11:54)
[2022-02-09] MEDS: D5W/SOD CHL 0.45% 1,000 ML IV SCH (04:10)
[2022-02-09 04:57] VITALS: BP 107/60
[2022-02-09] MEDS: metroNIDAZOLE 500MG/100ML 100 ML IV SCH (05:46)
[2022-02-09] MEDS: SODIUM CHLOR 0.9% PF (SALINE LOCK) 10ML VIAL/SYR IV SCH ×2 (05:47→14:54)
[2022-02-09 06:17] LABS: Hematocrit 35.7 % (36.0-46.0); Hemoglobin 11.5 g/dL (12.2-16.2)
[2022-02-09 06:27] LABS: Potassium 3.1 mmol/L (3.5-5.1)
[2022-02-09 06:29] LABS: Magnesium 1.8 mg/dL (1.6-2.6)
[2022-02-09 09:00] VITALS: BP 106/63
[2022-02-09] MEDS: ENOXAPARIN SOD 40 MG/0.4 ML SYRINGE SC SCH (10:00)
[2022-02-09] MEDS ORDERED: levoFLOXacin 500 MG TAB PO ONE (10:00)
[2022-02-09] MEDS: PANTOPRAZOLE 40 MG/10 ML VIAL INJ IV SCH (11:52)
[2022-02-09] MEDS: cefTRIAXone 1GM/50ML D5W 50 ML IV SCH (11:53)
[2022-02-09] MEDS ORDERED: POTASSIUM CHL 20 Meq TABLET PO ONE (12:15)
[2022-02-09] MEDS ORDERED: MAGNESIUM SULFATE 1GM/100ML 100 ML IV ONE (12:45)
[2022-02-09] MEDS ORDERED: LEVO500T31 PO (12:52)
[2022-02-09 13:00] VITALS: BP 110/60
[2022-02-09 17:00] VITALS: BP 113/61
[2022-02-10] MEDS ORDERED: levoFLOXacin 500 MG TAB PO SCH (10:00)
[2022-02-10] MEDS ORDERED: levoFLOXacin 500 MG TAB PO ONE (10:00)
[2022-02-11] MEDS ORDERED: levoFLOXacin 250 MG TAB PO SCH (10:00)
== END 2022-02-09 19:05 | DRG 388 ==
LOC: EDBD 07:16 → ER 07:16 → TELE-EAST 16:32
PROVIDERS: ADMIT Internal Medicine; ATTEND Internal Medicine
DX: K56.7 Ileus, unspecified (principal); E43 Unspecified severe protein-calorie malnutrition; N39.0 Urinary tract infection, site not specified; Z68.1 Body mass index [BMI] 19.9 or less, adult; K83.8 Other specified diseases of biliary tract; E03.9 Hypothyroidism, unspecified; E11.9 Type 2 diabetes mellitus without complications; E87.6 Hypokalemia; I25.10 Atherosclerotic heart disease of native coronary artery without angina pectoris; K21.9 Gastro-esophageal reflux disease without esophagitis; F32.A Depression, unspecified; F41.9 Anxiety disorder, unspecified; M10.9 Gout, unspecified; Z20.822 Contact with and (suspected) exposure to COVID-19; B96.1 Klebsiella pneumoniae [K. pneumoniae] as the cause of diseases classified elsewhere; M19.90 Unspecified osteoarthritis, unspecified site; M81.0 Age-related osteoporosis without current pathological fracture; Z83.3 Family history of diabetes mellitus; Z93.3 Colostomy status; Z86.14 Personal history of Methicillin resistant Staphylococcus aureus infection; Z90.710 Acquired absence of both cervix and uterus; Z93.2 Ileostomy status; Z88.5 Allergy status to narcotic agent
CPT/HCPCS: 36415; 71045; 74177; 74181; 74250; 80053; 81001; 83690; 83735; 84132; 84439; 84443; 84484; 85014; 85018; 85025; 85610; 85730; 87040; 87081; 87086; 87088; 87186; 93005; 96361; 96374; 96375; 97116; 97163; 97530; C9113; G0378; J0696; J2405; J3480; J3490

== ENCOUNTER 2022-02-15 16:03 | Inpatient (IN) | payer MEDICARE, MEDICAID ==
[~2022-02-15] VITALS: Ht 153 cm; Wt 35.5 kg
[~2022-02-15 16:03] MED LIST changes: +CLON-853 PO; -CLON0.5T PO; -HYDR-1421 PO; +LEVO500T31 PO; -SERT25TA84 PO
[2022-02-15 18:24] LABS: Basophils # (auto) 0 10 ^3/uL (0-0.2); Basophils % (auto) 0.3 % (0.0-2.0); Eosinophils # (auto) 0 10 ^3/uL (0-0.8); Eosinophils % (auto) 0.1 % (0.0-7.0); Hematocrit 38.6 % (36.0-46.0); Hemoglobin 12.4 g/dL (12.2-16.2); Lymphocytes % (auto) 8.7 % (10.0-50.0); Mean Corpuscular Hemoglobin 30.3 pg (28.0-32.0); Mean Corpuscular Volume 94.7 fL (80.0-100.0); Monocytes # (auto) 0.2 10 ^3/uL (0-1.3); Monocytes % (auto) 1.7 % (0.0-12.0); Neutrophils # (auto) 9.8 10 ^3/uL (1.6-8.6); Neutrophils % (auto) 89.2 % (37.0-80.0); Red Blood Cells 4.08 10^6/uL (4.0-5.20); Red Cell Distribution Width 19.7 % (11.8-14.3)
[2022-02-15 18:42] LABS: Albumin 2.9 g/dL (3.4-5.0); Calcium 8.5 mg/dL (8.5-10.1)
[2022-02-15 19:00] LABS: BUN/Creatinine Ratio 8.7; Bilirubin, Total 0.3 mg/dL (0.2-1.0); Total Protein 6.4 g/dL (6.4-8.2)
[2022-02-15] MEDS ORDERED: ALUM & MAG HYDROX-SIMETH LIQ(MAALOX) 30 ML PO ONE (19:00)
[2022-02-15] MEDS ORDERED: DONNATAL 5ml ORAL Elix (BELLADONNA ALK-PHENOBARB) PO ONE (19:00)
[2022-02-15] MEDS ORDERED: LIDOCAINE VISCOUS 2% 15ML UD PO ONE (19:00)
[2022-02-15 19:04] LABS: Potassium 2.7 mmol/L (3.5-5.1)
[2022-02-15] MEDS ORDERED: POTASSIUM CHL 20 Meq TABLET PO ONE (19:45)
[2022-02-15 21:37] LABS: Urine Bacteria NONE SEEN /hpf (None Seen); Urine Blood Negative /uL (Negative); Urine Mucus FEW (None Seen); Urine Specific Gravity 1.018 (1.001-1.035); Urine WBC 8 /hpf (0 - 5)
[2022-02-15] MEDS: POTASSIUM CHLORIDE 40 MEQ in D5W 5% 1,000 ML IV SCH (22:05)
[2022-02-15] MEDS ORDERED: ONDANSETRON HCL 4 MG/2 ML VIAL ONE (22:48)
[2022-02-16] MEDS ORDERED: cefTRIAXone 1GM/50ML D5W 50 ML IV ONE (03:45)
[2022-02-16 04:08] LABS: Basophils # (auto) 0.2 10 ^3/uL (0-0.2); Basophils % (auto) 3.4 % (0.0-2.0); Eosinophils # (auto) 0 10 ^3/uL (0-0.8); Eosinophils % (auto) 0.6 % (0.0-7.0); Hemoglobin 12.6 g/dL (12.2-16.2); Lymphocytes % (auto) 15.5 % (10.0-50.0); Mean Corpuscular Hemoglobin 30.3 pg (28.0-32.0); Mean Corpuscular Hgb Conc. 32.3 g/dL (32.0-36.0); Mean Corpuscular Volume 93.8 fL (80.0-100.0); Monocytes # (auto) 0.2 10 ^3/uL (0-1.3); Monocytes % (auto) 3.6 % (0.0-12.0); Neutrophils # (auto) 5.1 10 ^3/uL (1.6-8.6); Neutrophils % (auto) 76.9 % (37.0-80.0); Nucleated Red Blood Cells % 0.1 %; Red Blood Cells 4.16 10^6/uL (4.0-5.20); Red Cell Distribution Width 19.1 % (11.8-14.3); White Blood Cell 6.6 10^3/uL (4.4-10.8)
[2022-02-16] MEDS ORDERED: fentaNYL CITRATE 100 MCG/2 ML VL IV ONE (04:15)
[2022-02-16 04:24] LABS: INR 1.16 (0.9-1.15)
[2022-02-16 04:25] LABS: BUN/Creatinine Ratio 15.6; Calcium 8.8 mg/dL (8.5-10.1); Potassium 3.3 mmol/L (3.5-5.1)
[2022-02-16] MEDS ORDERED: DEXTROSE (50%) 50ML SYRG IV PRN (05:15)
[2022-02-16] MEDS ORDERED: ONDANSETRON HCL 4 MG/2 ML VIAL IV ONE (06:15)
[2022-02-16] MEDS ORDERED: HYDROmorphone HCL 2 MG/ML VL/or syr IV ONE ×2 (06:15)
[2022-02-16] MEDS: ACCU-CHEK COMFORT CURVE STRIP VI SCH ×3 (06:21→18:16)
[2022-02-16] MEDS: InsuLIN REG 1unit/0.01ml Soln (100units/ml) SC SCH ×3 (06:23→18:00)
[2022-02-16] MEDS: metroNIDAZOLE 500MG/100ML 100 ML IV SCH ×3 (06:26→21:52)
[2022-02-16 09:00] VITALS: BP 142/84
[2022-02-16] MEDS ORDERED: HYDR-4072 PO (10:20)
[2022-02-16] MEDS: POTASSIUM CHLORIDE 40 MEQ in D5W 5% 1,000 ML IV SCH (10:36)
[2022-02-16] MEDS ORDERED: GASTROGRAFIN 120 ML SOL ONE (10:49)
[2022-02-16 13:00] VITALS: BP 139/89
[2022-02-16] MEDS ORDERED: POTASSIUM CHLORIDE 20 MEQ, LIDOCAINE 1% (LOCAL ANESTH.) 2 ML in SODIUM CHL 0.9% 100 ML IV ONE (13:00)
[2022-02-16] MEDS ORDERED: KETOROLAC TROMETH 30 MG/ML 1ML VIAL IV ONE (13:30)
[2022-02-16] MEDS: ONDANSETRON HCL 4 MG/2 ML VIAL IV PRN (13:57)
[2022-02-16 17:09] VITALS: BP 134/78
[2022-02-16] MEDS: PROMETHAZINE HCL 25 MG/ML 1ML IV PRN (18:16)
[2022-02-16 20:00] VITALS: BP 129/78
[2022-02-16 22:00] VITALS: BP 129/78
[2022-02-17] VITALS (15 sets, daily range): BP systolic 102–144; BP diastolic 57–82
[2022-02-17] MEDS: PROMETHAZINE HCL 25 MG/ML 1ML IV PRN ×2 (00:07→08:54)
[2022-02-17] MEDS: ACCU-CHEK COMFORT CURVE STRIP VI SCH ×5 (00:07→23:54)
[2022-02-17] MEDS: POTASSIUM CHLORIDE 40 MEQ in D5W 5% 1,000 ML IV SCH ×2 (00:08→13:48)
[2022-02-17] MEDS: InsuLIN REG 1unit/0.01ml Soln (100units/ml) SC SCH ×5 (00:30→23:54)
[2022-02-17] MEDS: ONDANSETRON HCL 4 MG/2 ML VIAL IV PRN ×2 (05:05→11:16)
[2022-02-17] MEDS: metroNIDAZOLE 500MG/100ML 100 ML IV SCH ×3 (05:53→21:05)
[2022-02-17] MEDS ORDERED: KETOROLAC TROMETH 30 MG/ML 1ML VIAL IV ONE (06:30)
[2022-02-17] MEDS: cefTRIAXone 1GM/50ML D5W 50 ML IV SCH (08:54)
[2022-02-17 09:16] LABS: Basophils # (auto) 0 10 ^3/uL (0-0.2); Basophils % (auto) 0.1 % (0.0-2.0); Eosinophils # (auto) 0 10 ^3/uL (0-0.8); Eosinophils % (auto) 0.3 % (0.0-7.0); Hematocrit 41.3 % (36.0-46.0); Hemoglobin 13.7 g/dL (12.2-16.2); Lymphocytes # (auto) 1.2 10 ^3/uL (0.4-5.4); Lymphocytes % (auto) 10.5 % (10.0-50.0); Mean Corpuscular Hemoglobin 31.2 pg (28.0-32.0); Mean Corpuscular Hgb Conc. 33.2 g/dL (32.0-36.0); Mean Corpuscular Volume 93.9 fL (80.0-100.0); Monocytes # (auto) 0.5 10 ^3/uL (0-1.3); Monocytes % (auto) 4.2 % (0.0-12.0); Neutrophils # (auto) 10.1 10 ^3/uL (1.6-8.6); Neutrophils % (auto) 84.9 % (37.0-80.0); Red Cell Distribution Width 19.2 % (11.8-14.3); White Blood Cell 11.8 10^3/uL (4.4-10.8)
[2022-02-17 09:48] LABS: Alanine Aminotransferase 17 U/L (13-56); Aspartate Aminotransferase 17 U/L (15-37)
[2022-02-17 10:28] LABS: Albumin 2.8 g/dL (3.4-5.0); Alkaline Phosphatase 78 U/L (45-117); Anion Gap 5 (5-15); BUN/Creatinine Ratio 20.6; Bilirubin, Total 0.4 mg/dL (0.2-1.0); Blood Urea Nitrogen 13 mg/dL (7-18); Calcium 9.1 mg/dL (8.5-10.1); Carbon Dioxide 29 mmol/L (21-32); Chloride 103 mmol/L (98-107); GFR African American 120 mL/min; GFR Non-African American 99 mL/min; Glucose 148 mg/dL (74-106); Potassium 3.7 mmol/L (3.5-5.1); Sodium 137 mmol/L (136-145); Total Protein 6.6 g/dL (6.4-8.2)
[2022-02-17] MEDS ORDERED: ceFAZolin 1GM/50ML 50 ML IV ONE (14:44)
[2022-02-17] MEDS ORDERED: LIDOCAINE 1%-Mpf/Epinephrine 1:200,000 ONE (15:13)
[2022-02-17] MEDS ORDERED: FAMOTIDINE (10MG/ML) 2ML VL IV ONE (15:19)
[2022-02-17] MEDS ORDERED: BACITRACIN TOP OINT 1 UD PKG TOP ONE (15:25)
[2022-02-17] MEDS ORDERED: D5W/SOD CHL 0.45%/KCL 20MEQ 1,000 ML IV ONE (18:00)
[2022-02-17] MEDS ORDERED: HYDROmorphone HCL 2 MG/ML VL/or syr IV PRN (18:15)
[2022-02-17] MEDS ORDERED: ACCU-CHEK COMFORT CURVE STRIP VI ONE (18:15)
[2022-02-17] MEDS ORDERED: ONDANSETRON HCL 4 MG/2 ML VIAL IV PRN (18:15)
[2022-02-17] MEDS ORDERED: LABETALOL HCL 5 MG/ML 4ML SYRINGE IV ONE ×2 (19:15→19:17)
[2022-02-17] MEDS ORDERED: DEXTROSE (50%) 50ML SYRG IV SCH (21:00)
[2022-02-17] MEDS ORDERED: AMINO ACID INFUSION IN D10W 1,000 ML IV NR (21:00)
[2022-02-17] MEDS: HYDROmorphone HCL 2 MG/ML VL/or syr IV PRN (22:46)
[2022-02-18] VITALS (12 sets, daily range): BP systolic 104–132; BP diastolic 55–76
[2022-02-18] MEDS: HYDROmorphone HCL 2 MG/ML VL/or syr IV PRN ×7 (02:25→23:51)
[2022-02-18] MEDS: InsuLIN REG 1unit/0.01ml Soln (100units/ml) SC SCH ×4 (05:09→23:49)
[2022-02-18] MEDS: ACCU-CHEK COMFORT CURVE STRIP VI SCH ×4 (05:09→23:49)
[2022-02-18] MEDS: metroNIDAZOLE 500MG/100ML 100 ML IV SCH ×3 (05:09→21:04)
[2022-02-18] MEDS: POTASSIUM CHLORIDE 40 MEQ in D5W 5% 1,000 ML IV SCH ×3 (05:10→23:59)
[2022-02-18 05:30] LABS: Basophils # (auto) 0 10 ^3/uL (0-0.2); Basophils % (auto) 0.1 % (0.0-2.0); Eosinophils # (auto) 0 10 ^3/uL (0-0.8); Hemoglobin 11.3 g/dL (12.2-16.2); Lymphocytes # (auto) 1.6 10 ^3/uL (0.4-5.4); Lymphocytes % (auto) 13.4 % (10.0-50.0); Mean Corpuscular Hemoglobin 31.3 pg (28.0-32.0); Mean Corpuscular Hgb Conc. 33.1 g/dL (32.0-36.0); Mean Corpuscular Volume 94.5 fL (80.0-100.0); Monocytes % (auto) 8.5 % (0.0-12.0); Neutrophils # (auto) 9.5 10 ^3/uL (1.6-8.6); Red Cell Distribution Width 19.2 % (11.8-14.3); White Blood Cell 12.1 10^3/uL (4.4-10.8)
[2022-02-18 05:36] LABS: Magnesium 1.7 mg/dL (1.6-2.6); Potassium 4.1 mmol/L (3.5-5.1)
[2022-02-18 05:43] LABS: Albumin 2.1 g/dL (3.4-5.0); Bilirubin, Total 0.4 mg/dL (0.2-1.0); Calcium 7.7 mg/dL (8.5-10.1); Phosphorus 2.5 mg/dL (2.5-4.90); Total Protein 4.8 g/dL (6.4-8.2)
[2022-02-18] MEDS ORDERED: SODIUM BICARBONATE 8.4 % INJ 50ML VIAL IV ONE (08:30)
[2022-02-18] MEDS: cefTRIAXone 1GM/50ML D5W 50 ML IV SCH (09:28)
[2022-02-18] MEDS ORDERED: TPN PER PHARMACY 0 ML IV SCH (10:45)
[2022-02-18] MEDS ORDERED: clonazePAM 0.5 MG TAB PO ONE (18:30)
[2022-02-18] MEDS ORDERED: AMINO ACID INFUSION IN D10W 1,000 ML IV NR (20:00)
[2022-02-18] MEDS: clonazePAM 0.5 MG TAB PO SCH (22:08)
[2022-02-19] VITALS: BP 121/61
[2022-02-19 02:00] VITALS: BP 114/53
[2022-02-19] MEDS: HYDROmorphone HCL 2 MG/ML VL/or syr IV PRN ×5 (03:19→21:23)
[2022-02-19 04:00] VITALS: BP 110/60
[2022-02-19] MEDS: clonazePAM 0.5 MG TAB PO SCH ×4 (05:39→22:19)
[2022-02-19] MEDS: metroNIDAZOLE 500MG/100ML 100 ML IV SCH ×3 (05:39→22:19)
[2022-02-19] MEDS: ACCU-CHEK COMFORT CURVE STRIP VI SCH ×3 (05:40→18:12)
[2022-02-19 05:47] LABS: Basophils # (auto) 0 10 ^3/uL (0-0.2); Basophils % (auto) 0.1 % (0.0-2.0); Eosinophils # (auto) 0 10 ^3/uL (0-0.8); Hematocrit 36.5 % (36.0-46.0); Hemoglobin 12.1 g/dL (12.2-16.2); Lymphocytes # (auto) 1.5 10 ^3/uL (0.4-5.4); Mean Corpuscular Hemoglobin 31.5 pg (28.0-32.0); Mean Corpuscular Hgb Conc. 33.2 g/dL (32.0-36.0); Mean Corpuscular Volume 94.9 fL (80.0-100.0); Monocytes # (auto) 0.7 10 ^3/uL (0-1.3); Monocytes % (auto) 6.7 % (0.0-12.0); Neutrophils # (auto) 7.9 10 ^3/uL (1.6-8.6); Neutrophils % (auto) 78.2 % (37.0-80.0); Red Blood Cells 3.85 10^6/uL (4.0-5.20); Red Cell Distribution Width 18.6 % (11.8-14.3); White Blood Cell 10.1 10^3/uL (4.4-10.8)
[2022-02-19 05:58] LABS: Potassium 3.9 mmol/L (3.5-5.1)
[2022-02-19] MEDS: InsuLIN REG 1unit/0.01ml Soln (100units/ml) SC SCH ×3 (05:58→18:00)
[2022-02-19 06:00] VITALS: BP 119/62
[2022-02-19 06:03] LABS: Albumin 2.1 g/dL (3.4-5.0); BUN/Creatinine Ratio 12.5; Calcium 7.9 mg/dL (8.5-10.1); Magnesium 1.7 mg/dL (1.6-2.6)
[2022-02-19 06:06] LABS: Bilirubin, Total 0.3 mg/dL (0.2-1.0); Phosphorus 1.2 mg/dL (2.5-4.90)
[2022-02-19] MEDS: cefTRIAXone 1GM/50ML D5W 50 ML IV SCH (10:25)
[2022-02-19] MEDS ORDERED: ACETAMINOPHEN 650 MG RECT SUPP PR ONE (11:45)
[2022-02-19] MEDS ORDERED: LIDOCAINE 1% (LOCAL ANESTH.) PF 5ml SDV ID ONE (13:15)
[2022-02-19] MEDS ORDERED: SODIUM PHOSPHATES 40 MEQ in D5W 5% 250 ML IV ONE ×2 (13:45→14:45)
[2022-02-19] MEDS: MAGNESIUM SULFATE 1GM/100ML 100 ML IV SCH ×2 (14:25→16:51)
[2022-02-19 16:32] VITALS: BP 101/52
[2022-02-19] MEDS: ONDANSETRON HCL 4 MG/2 ML VIAL IV PRN (17:23)
[2022-02-19] MEDS ORDERED: AMINO ACID INFUSION IN D5W 1,000 ML IV NR (20:00)
[2022-02-19] MEDS: POTASSIUM CHLORIDE 40 MEQ in D5W 5% 1,000 ML IV SCH (20:59)
[2022-02-19] MEDS: PROMETHAZINE HCL 25 MG/ML 1ML IV PRN (21:24)
[2022-02-19 22:01] VITALS: BP 106/60
[2022-02-19] MEDS: SODIUM CHLOR 0.9% PF (SALINE LOCK) 10ML VIAL/SYR IV SCH (22:19)
[2022-02-20] MEDS: InsuLIN REG 1unit/0.01ml Soln (100units/ml) SC SCH ×5 (01:05→23:41)
[2022-02-20] MEDS: HYDROmorphone HCL 2 MG/ML VL/or syr IV PRN ×4 (04:06→21:34)
[2022-02-20 04:45] VITALS: BP 108/55
[2022-02-20] MEDS: clonazePAM 0.5 MG TAB PO SCH ×3 (05:35→21:34)
[2022-02-20] MEDS: metroNIDAZOLE 500MG/100ML 100 ML IV SCH ×3 (05:35→21:35)
[2022-02-20] MEDS: ACCU-CHEK COMFORT CURVE STRIP VI SCH ×5 (06:03→23:39)
[2022-02-20 08:09] LABS: Potassium 3.6 mmol/L (3.5-5.1)
[2022-02-20 08:13] LABS: Albumin 1.9 g/dL (3.4-5.0); BUN/Creatinine Ratio 9.4; Calcium 7.7 mg/dL (8.5-10.1); Magnesium 1.8 mg/dL (1.6-2.6); Phosphorus 1.4 mg/dL (2.5-4.90)
[2022-02-20] MEDS: cefTRIAXone 1GM/50ML D5W 50 ML IV SCH (08:31)
[2022-02-20] MEDS: ONDANSETRON HCL 4 MG/2 ML VIAL IV PRN ×2 (08:33→16:48)
[2022-02-20 09:00] VITALS: BP 103/56
[2022-02-20] MEDS: SODIUM CHLOR 0.9% PF (SALINE LOCK) 10ML VIAL/SYR IV SCH ×2 (09:50→21:34)
[2022-02-20] MEDS ORDERED: SODIUM PHOSPHATES 40 MEQ in D5W 5% 250 ML IV ONE (11:15)
[2022-02-20] MEDS: POTASSIUM CHLORIDE 40 MEQ in D5W 5% 1,000 ML IV SCH ×2 (11:42→21:39)
[2022-02-20 13:00] VITALS: BP 97/49
[2022-02-20] MEDS ORDERED: POTASSIUM PHOSPHATE 44 MEQ in D5W 5% 250 ML IV ONE (13:00)
[2022-02-20 17:21] VITALS: BP 97/49
[2022-02-20] MEDS ORDERED: TPN PER PHARMACY IV NR ×9 (20:00)
[2022-02-20 22:00] VITALS: BP 104/55
[2022-02-21] MEDS: HYDROmorphone HCL 2 MG/ML VL/or syr IV PRN ×6 (00:47→23:10)
[2022-02-21 05:00] VITALS: BP 106/51
[2022-02-21] MEDS: metroNIDAZOLE 500MG/100ML 100 ML IV SCH ×3 (05:40→21:57)
[2022-02-21] MEDS: clonazePAM 0.5 MG TAB PO SCH ×3 (06:10→21:56)
[2022-02-21] MEDS: ACCU-CHEK COMFORT CURVE STRIP VI SCH ×4 (06:10→23:48)
[2022-02-21] MEDS: InsuLIN REG 1unit/0.01ml Soln (100units/ml) SC SCH ×5 (06:13→23:49)
[2022-02-21 06:34] LABS: Potassium 3.6 mmol/L (3.5-5.1)
[2022-02-21 06:37] LABS: Basophils # (auto) 0 10 ^3/uL (0-0.2); Basophils % (auto) 0.1 % (0.0-2.0); Eosinophils # (auto) 0.1 10 ^3/uL (0-0.8); Eosinophils % (auto) 0.6 % (0.0-7.0); Hemoglobin 10.1 g/dL (12.2-16.2); Lymphocytes # (auto) 1.2 10 ^3/uL (0.4-5.4); Lymphocytes % (auto) 11.6 % (10.0-50.0); Mean Corpuscular Hemoglobin 31.4 pg (28.0-32.0); Mean Corpuscular Hgb Conc. 33.5 g/dL (32.0-36.0); Mean Corpuscular Volume 93.7 fL (80.0-100.0); Monocytes # (auto) 0.8 10 ^3/uL (0-1.3); Monocytes % (auto) 7.8 % (0.0-12.0); Neutrophils # (auto) 8.1 10 ^3/uL (1.6-8.6); Neutrophils % (auto) 79.9 % (37.0-80.0); Nucleated Red Blood Cells % 0.1 %; Red Cell Distribution Width 18.6 % (11.8-14.3); White Blood Cell 10.1 10^3/uL (4.4-10.8)
[2022-02-21 06:45] LABS: Albumin 1.7 g/dL (3.4-5.0); BUN/Creatinine Ratio 17.9; Bilirubin, Total 0.3 mg/dL (0.2-1.0); Calcium 7.6 mg/dL (8.5-10.1); Magnesium 2.1 mg/dL (1.6-2.6); Phosphorus 1.5 mg/dL (2.5-4.90)
[2022-02-21] MEDS: cefTRIAXone 1GM/50ML D5W 50 ML IV SCH (09:02)
[2022-02-21] MEDS ORDERED: SODIUM PHOSPHATES 40 MEQ in D5W 5% 250 ML IV ONE (09:30)
[2022-02-21] MEDS ORDERED: POTASSIUM PHOSPHATE 26.4 MEQ in SODIUM CHL 0.9% 100 ML IV ONE (09:45)
[2022-02-21 09:46] VITALS: BP 94/48
[2022-02-21] MEDS: SODIUM CHLOR 0.9% PF (SALINE LOCK) 10ML VIAL/SYR IV SCH ×2 (10:52→22:05)
[2022-02-21 12:56] VITALS: BP 103/53
[2022-02-21] MEDS: POTASSIUM CHLORIDE 40 MEQ in D5W 5% 1,000 ML IV SCH (16:24)
[2022-02-21 17:22] VITALS: BP 120/69
[2022-02-21] MEDS ORDERED: TPN PER PHARMACY IV NR ×10 (20:00)
[2022-02-21 22:00] VITALS: BP 92/52
[2022-02-22 05:00] VITALS: BP 102/61
[2022-02-22] MEDS: metroNIDAZOLE 500MG/100ML 100 ML IV SCH ×3 (06:02→21:39)
[2022-02-22] MEDS: HYDROmorphone HCL 2 MG/ML VL/or syr IV PRN ×4 (06:03→21:57)
[2022-02-22] MEDS: ACCU-CHEK COMFORT CURVE STRIP VI SCH ×4 (06:03→23:58)
[2022-02-22] MEDS: clonazePAM 0.5 MG TAB PO SCH ×3 (06:03→21:40)
[2022-02-22] MEDS: InsuLIN REG 1unit/0.01ml Soln (100units/ml) SC SCH ×4 (06:05→23:59)
[2022-02-22 06:30] LABS: Basophils # (auto) 0 10 ^3/uL (0-0.2); Basophils % (auto) 0.2 % (0.0-2.0); Eosinophils # (auto) 0.1 10 ^3/uL (0-0.8); Eosinophils % (auto) 1.4 % (0.0-7.0); Hematocrit 30.3 % (36.0-46.0); Hemoglobin 10.1 g/dL (12.2-16.2); Lymphocytes # (auto) 1.1 10 ^3/uL (0.4-5.4); Lymphocytes % (auto) 13.6 % (10.0-50.0); Mean Corpuscular Hemoglobin 32.2 pg (28.0-32.0); Mean Corpuscular Hgb Conc. 33.4 g/dL (32.0-36.0); Mean Corpuscular Volume 96.3 fL (80.0-100.0); Monocytes # (auto) 0.7 10 ^3/uL (0-1.3); Monocytes % (auto) 8.2 % (0.0-12.0); Neutrophils # (auto) 6.3 10 ^3/uL (1.6-8.6); Neutrophils % (auto) 76.6 % (37.0-80.0); Red Blood Cells 3.15 10^6/uL (4.0-5.20); Red Cell Distribution Width 18.8 % (11.8-14.3); White Blood Cell 8.3 10^3/uL (4.4-10.8)
[2022-02-22 06:35] LABS: Albumin 1.8 g/dL (3.4-5.0); Calcium 7.9 mg/dL (8.5-10.1); Potassium 3.4 mmol/L (3.5-5.1)
[2022-02-22 06:38] LABS: BUN/Creatinine Ratio 26.1; Magnesium 2.6 mg/dL (1.6-2.6)
[2022-02-22 06:47] LABS: Bilirubin, Total 0.2 mg/dL (0.2-1.0); Phosphorus 2.4 mg/dL (2.5-4.90); Total Protein 5.1 g/dL (6.4-8.2)
[2022-02-22 09:00] VITALS: BP 134/71
[2022-02-22] MEDS ORDERED: POTASSIUM PHOSPHATE 22 MEQ in SODIUM CHL 0.9% 100 ML IV ONE (10:00)
[2022-02-22] MEDS: SODIUM CHLOR 0.9% PF (SALINE LOCK) 10ML VIAL/SYR IV SCH ×2 (10:44→21:40)
[2022-02-22] MEDS: cefTRIAXone 1GM/50ML D5W 50 ML IV SCH (10:44)
[2022-02-22 13:00] VITALS: BP 123/72
[2022-02-22] MEDS: POTASSIUM CHLORIDE 40 MEQ in D5W 5% 1,000 ML IV SCH (14:48)
[2022-02-22 17:00] VITALS: BP 118/62
[2022-02-22] MEDS ORDERED: TPN PER PHARMACY IV NR ×10 (20:00)
[2022-02-22 22:00] VITALS: BP 91/47
[2022-02-23] MEDS: HYDROmorphone HCL 2 MG/ML VL/or syr IV PRN ×4 (04:52→21:05)
[2022-02-23 05:04] VITALS: BP 97/47
[2022-02-23] MEDS: ACCU-CHEK COMFORT CURVE STRIP VI SCH ×3 (05:49→18:00)
[2022-02-23] MEDS: metroNIDAZOLE 500MG/100ML 100 ML IV SCH ×3 (05:49→21:35)
[2022-02-23] MEDS: clonazePAM 0.5 MG TAB PO SCH ×3 (05:49→21:35)
[2022-02-23] MEDS: InsuLIN REG 1unit/0.01ml Soln (100units/ml) SC SCH ×3 (05:50→18:00)
[2022-02-23 06:04] LABS: Albumin 1.9 g/dL (3.4-5.0); Calcium 7.9 mg/dL (8.5-10.1); Magnesium 2.3 mg/dL (1.6-2.6); Potassium 4.2 mmol/L (3.5-5.1)
[2022-02-23 06:07] LABS: BUN/Creatinine Ratio 41.2; Bilirubin, Total 0.3 mg/dL (0.2-1.0); Phosphorus 2.9 mg/dL (2.5-4.90); Total Protein 5.3 g/dL (6.4-8.2)
[2022-02-23 09:00] VITALS: BP 98/53
[2022-02-23] MEDS: POTASSIUM CHLORIDE 40 MEQ in D5W 5% 1,000 ML IV SCH (09:12)
[2022-02-23] MEDS: cefTRIAXone 1GM/50ML D5W 50 ML IV SCH (09:14)
[2022-02-23] MEDS: SODIUM CHLOR 0.9% PF (SALINE LOCK) 10ML VIAL/SYR IV SCH ×2 (10:00→21:35)
[2022-02-23 13:00] VITALS: BP 98/53
[2022-02-23 16:45] VITALS: BP 110/54
[2022-02-23] MEDS ORDERED: TPN PER PHARMACY IV NR ×10 (20:00)
[2022-02-23 22:00] VITALS: BP 94/51
[2022-02-24] MEDS: InsuLIN REG 1unit/0.01ml Soln (100units/ml) SC SCH ×5 (00:01→23:41)
[2022-02-24] MEDS: HYDROmorphone HCL 2 MG/ML VL/or syr IV PRN ×5 (00:50→21:27)
[2022-02-24] MEDS: POTASSIUM CHLORIDE 40 MEQ in D5W 5% 1,000 ML IV SCH (04:45)
[2022-02-24 05:00] VITALS: BP 116/56
[2022-02-24] MEDS: clonazePAM 0.5 MG TAB PO SCH ×3 (05:40→21:51)
[2022-02-24] MEDS: metroNIDAZOLE 500MG/100ML 100 ML IV SCH ×3 (05:40→21:51)
[2022-02-24 06:11] LABS: Albumin 1.9 g/dL (3.4-5.0); Calcium 8.1 mg/dL (8.5-10.1); Potassium 4.3 mmol/L (3.5-5.1)
[2022-02-24 06:17] LABS: Bilirubin, Total 0.2 mg/dL (0.2-1.0); Magnesium 2.2 mg/dL (1.6-2.6); Phosphorus 3.1 mg/dL (2.5-4.90); Total Protein 5.4 g/dL (6.4-8.2)
[2022-02-24] MEDS: ACCU-CHEK COMFORT CURVE STRIP VI SCH ×5 (06:35→23:40)
[2022-02-24 09:24] VITALS: BP 110/59
[2022-02-24] MEDS: cefTRIAXone 1GM/50ML D5W 50 ML IV SCH (09:45)
[2022-02-24] MEDS: SODIUM CHLOR 0.9% PF (SALINE LOCK) 10ML VIAL/SYR IV SCH ×2 (10:00→21:49)
[2022-02-24 13:00] VITALS: BP 97/51
[2022-02-24 16:16] VITALS: BP 101/50
[2022-02-24] MEDS ORDERED: TPN PER PHARMACY IV NR ×10 (20:00)
[2022-02-24 22:00] VITALS: BP 110/57
[2022-02-25] MEDS: HYDROmorphone HCL 2 MG/ML VL/or syr IV PRN ×5 (01:55→23:41)
[2022-02-25] MEDS: POTASSIUM CHLORIDE 40 MEQ in D5W 5% 1,000 ML IV SCH ×2 (01:58→22:54)
[2022-02-25 05:00] VITALS: BP 94/56
[2022-02-25] MEDS: metroNIDAZOLE 500MG/100ML 100 ML IV SCH ×3 (06:23→22:09)
[2022-02-25] MEDS: ACCU-CHEK COMFORT CURVE STRIP VI SCH ×4 (06:23→23:47)
[2022-02-25] MEDS: InsuLIN REG 1unit/0.01ml Soln (100units/ml) SC SCH ×4 (06:23→23:47)
[2022-02-25] MEDS: clonazePAM 0.5 MG TAB PO SCH ×3 (06:24→22:09)
[2022-02-25 07:27] LABS: BUN/Creatinine Ratio 52.4; Calcium 8.2 mg/dL (8.5-10.1); Magnesium 2.3 mg/dL (1.6-2.6); Potassium 3.8 mmol/L (3.5-5.1)
[2022-02-25 07:32] LABS: Bilirubin, Total 0.2 mg/dL (0.2-1.0); Phosphorus 3.3 mg/dL (2.5-4.90); Pre Albumin 19.3 mg/dL (20.0-40.0); Total Protein 5.8 g/dL (6.4-8.2)
[2022-02-25 09:00] VITALS: BP 102/66
[2022-02-25] MEDS: cefTRIAXone 1GM/50ML D5W 50 ML IV SCH (09:03)
[2022-02-25 13:00] VITALS: BP 116/61
[2022-02-25] MEDS: SODIUM CHLOR 0.9% PF (SALINE LOCK) 10ML VIAL/SYR IV SCH ×2 (13:14→22:10)
[2022-02-25 17:00] VITALS: BP 97/52
[2022-02-25] MEDS ORDERED: TPN PER PHARMACY IV NR ×9 (20:00)
[2022-02-25 22:00] VITALS: BP 101/54
[2022-02-26] MEDS: HYDROmorphone HCL 2 MG/ML VL/or syr IV PRN ×4 (03:00→20:58)
[2022-02-26 05:00] VITALS: BP 98/48
[2022-02-26] MEDS: InsuLIN REG 1unit/0.01ml Soln (100units/ml) SC SCH ×4 (06:00→23:57)
[2022-02-26] MEDS: ACCU-CHEK COMFORT CURVE STRIP VI SCH ×4 (06:15→23:57)
[2022-02-26] MEDS: clonazePAM 0.5 MG TAB PO SCH ×3 (06:38→22:34)
[2022-02-26] MEDS: metroNIDAZOLE 500MG/100ML 100 ML IV SCH ×3 (06:39→22:34)
[2022-02-26 07:44] LABS: BUN/Creatinine Ratio 68.4; Calcium 8.1 mg/dL (8.5-10.1); Magnesium 2.2 mg/dL (1.6-2.6); Phosphorus 3.4 mg/dL (2.5-4.90); Potassium 4.1 mmol/L (3.5-5.1)
[2022-02-26 08:50] VITALS: BP 97/47
[2022-02-26] MEDS: SODIUM CHLOR 0.9% PF (SALINE LOCK) 10ML VIAL/SYR IV SCH ×2 (09:23→22:00)
[2022-02-26] MEDS: cefTRIAXone 1GM/50ML D5W 50 ML IV SCH (09:29)
[2022-02-26 13:20] VITALS: BP 116/60
[2022-02-26 16:36] VITALS: BP 106/54
[2022-02-26] MEDS: POTASSIUM CHLORIDE 40 MEQ in D5W 5% 1,000 ML IV SCH (17:22)
[2022-02-26] MEDS ORDERED: TPN PER PHARMACY IV NR ×9 (20:00)
[2022-02-26 21:59] VITALS: BP 91/51
[2022-02-27] MEDS: HYDROmorphone HCL 2 MG/ML VL/or syr IV PRN ×4 (03:57→20:33)
[2022-02-27 05:00] VITALS: BP 110/57
[2022-02-27 05:15] LABS: Potassium 4.1 mmol/L (3.5-5.1)
[2022-02-27 05:22] LABS: Albumin 2.1 g/dL (3.4-5.0); Bilirubin, Total 0.1 mg/dL (0.2-1.0); Calcium 8.1 mg/dL (8.5-10.1); Magnesium 2.2 mg/dL (1.6-2.6); Phosphorus 3.5 mg/dL (2.5-4.90); Total Protein 5.5 g/dL (6.4-8.2)
[2022-02-27] MEDS: clonazePAM 0.5 MG TAB PO SCH ×3 (05:29→21:57)
[2022-02-27] MEDS: metroNIDAZOLE 500MG/100ML 100 ML IV SCH ×3 (05:29→21:57)
[2022-02-27] MEDS: InsuLIN REG 1unit/0.01ml Soln (100units/ml) SC SCH ×3 (05:37→17:58)
[2022-02-27] MEDS: ACCU-CHEK COMFORT CURVE STRIP VI SCH ×3 (05:37→17:57)
[2022-02-27 09:00] VITALS: BP 99/50
[2022-02-27] MEDS: SODIUM CHLOR 0.9% PF (SALINE LOCK) 10ML VIAL/SYR IV SCH ×2 (09:49→22:00)
[2022-02-27] MEDS: cefTRIAXone 1GM/50ML D5W 50 ML IV SCH (10:05)
[2022-02-27 13:00] VITALS: BP 110/57
[2022-02-27 17:00] VITALS: BP 115/66
[2022-02-27] MEDS: POTASSIUM CHLORIDE 40 MEQ in D5W 5% 1,000 ML IV SCH (18:11)
[2022-02-27] MEDS ORDERED: TPN PER PHARMACY IV NR ×9 (20:00)
[2022-02-27 22:04] VITALS: BP 112/56
[2022-02-28] MEDS: HYDROmorphone HCL 2 MG/ML VL/or syr IV PRN ×4 (00:13→16:21)
[2022-02-28] MEDS: ACCU-CHEK COMFORT CURVE STRIP VI SCH ×4 (00:13→17:17)
[2022-02-28 04:41] LABS: Basophils # (auto) 0 10 ^3/uL (0-0.2); Basophils % (auto) 0.7 % (0.0-2.0); Eosinophils # (auto) 0.2 10 ^3/uL (0-0.8); Eosinophils % (auto) 3.2 % (0.0-7.0); Hematocrit 29.2 % (36.0-46.0); Hemoglobin 9.6 g/dL (12.2-16.2); Mean Corpuscular Hemoglobin 31.2 pg (28.0-32.0); Mean Corpuscular Volume 94.5 fL (80.0-100.0); Monocytes # (auto) 0.5 10 ^3/uL (0-1.3); Monocytes % (auto) 8.5 % (0.0-12.0); Neutrophils # (auto) 3.6 10 ^3/uL (1.6-8.6); Neutrophils % (auto) 56.6 % (37.0-80.0); Nucleated Red Blood Cells % 0.1 %; Red Blood Cells 3.09 10^6/uL (4.0-5.20); Red Cell Distribution Width 18.6 % (11.8-14.3); White Blood Cell 6.4 10^3/uL (4.4-10.8)
[2022-02-28 04:51] LABS: Calcium 8.3 mg/dL (8.5-10.1); Potassium 4.1 mmol/L (3.5-5.1)
[2022-02-28 04:54] LABS: Albumin 2.2 g/dL (3.4-5.0); BUN/Creatinine Ratio 61.9; Bilirubin, Total 0.2 mg/dL (0.2-1.0); Magnesium 2.1 mg/dL (1.6-2.6); Phosphorus 3.3 mg/dL (2.5-4.90); Total Protein 5.5 g/dL (6.4-8.2)
[2022-02-28 05:00] VITALS: BP 99/54
[2022-02-28] MEDS: InsuLIN REG 1unit/0.01ml Soln (100units/ml) SC SCH ×4 (05:08→17:17)
[2022-02-28] MEDS: clonazePAM 0.5 MG TAB PO SCH ×3 (05:42→21:21)
[2022-02-28] MEDS: metroNIDAZOLE 500MG/100ML 100 ML IV SCH ×3 (05:42→21:22)
[2022-02-28 09:02] VITALS: BP 105/48
[2022-02-28] MEDS: cefTRIAXone 1GM/50ML D5W 50 ML IV SCH (09:37)
[2022-02-28] MEDS: SODIUM CHLOR 0.9% PF (SALINE LOCK) 10ML VIAL/SYR IV SCH ×2 (09:37→21:23)
[2022-02-28 13:00] VITALS: BP 97/56
[2022-02-28] MEDS: POTASSIUM CHLORIDE 40 MEQ in D5W 5% 1,000 ML IV SCH (13:30)
[2022-02-28 17:00] VITALS: BP 116/60
[2022-02-28] MEDS ORDERED: TPN PER PHARMACY IV NR ×9 (20:00)
[2022-02-28 22:00] VITALS: BP 123/51
[2022-03-01] MEDS: ACCU-CHEK COMFORT CURVE STRIP VI SCH ×3 (00:21→11:59)
[2022-03-01] MEDS: HYDROmorphone HCL 2 MG/ML VL/or syr IV PRN ×3 (03:30→11:41)
[2022-03-01 05:00] VITALS: BP 95/51
[2022-03-01] MEDS: clonazePAM 0.5 MG TAB PO SCH ×2 (05:25→13:35)
[2022-03-01] MEDS: metroNIDAZOLE 500MG/100ML 100 ML IV SCH ×2 (05:25→13:35)
[2022-03-01] MEDS: InsuLIN REG 1unit/0.01ml Soln (100units/ml) SC SCH ×3 (05:33→11:59)
[2022-03-01 06:09] LABS: Albumin 2.4 g/dL (3.4-5.0); Magnesium 2.1 mg/dL (1.6-2.6); Potassium 4.2 mmol/L (3.5-5.1)
[2022-03-01 06:14] LABS: BUN/Creatinine Ratio 52.4; Bilirubin, Total 0.2 mg/dL (0.2-1.0); Calcium 8.5 mg/dL (8.5-10.1); Phosphorus 3.3 mg/dL (2.5-4.90); Total Protein 5.8 g/dL (6.4-8.2)
[2022-03-01 08:31] VITALS: BP 119/63
[2022-03-01] MEDS: cefTRIAXone 1GM/50ML D5W 50 ML IV SCH (09:36)
[2022-03-01] MEDS: SODIUM CHLOR 0.9% PF (SALINE LOCK) 10ML VIAL/SYR IV SCH (09:36)
[2022-03-01] MEDS: POTASSIUM CHLORIDE 40 MEQ in D5W 5% 1,000 ML IV SCH (09:56)
[2022-03-01] MEDS ORDERED: PANTOPRAZOLE 40 MG TAB PO SCH (10:00)
[2022-03-01 12:32] VITALS: BP 112/58
[2022-03-01 17:00] VITALS: BP 116/60
[2022-03-01 17:01] VITALS: BP 112/58
== END 2022-03-01 18:40 | DRG 335 ==
LOC: EDBD 16:03 → ER 16:03 → OVERFLOW 02-16 05:01 → TELE-WESTW 02-16 08:02 → DOU IN ICU 02-17 20:20 → TELE-CENTR 02-19 13:00 → CENTRAL 02-25 17:35
PROVIDERS: ADMIT Registered Nurse; ATTEND Internal Medicine
PROC: 0D9670Z Drainage of Stomach with Drainage Device, Via Natural or Artificial Opening (ICD-10-PCS; principal; 2022-02-16)
PROC: 0DN80ZZ Release Small Intestine, Open Approach (ICD-10-PCS; 2022-02-17)
PROC: 0D9A00Z Drainage of Jejunum with Drainage Device, Open Approach (ICD-10-PCS; 2022-02-17)
PROC: 05HY33Z Insertion of Infusion Device into Upper Vein, Percutaneous Approach (ICD-10-PCS; 2022-02-19)
PROC: B54NZZA Ultrasonography of Left Upper Extremity Veins, Guidance (ICD-10-PCS; 2022-02-19)
DX: K46.0 Unspecified abdominal hernia with obstruction, without gangrene (principal); E43 Unspecified severe protein-calorie malnutrition; Z68.1 Body mass index [BMI] 19.9 or less, adult; K56.50 Intestinal adhesions [bands], unspecified as to partial versus complete obstruction; E88.09 Other disorders of plasma-protein metabolism, not elsewhere classified; E87.6 Hypokalemia; R80.9 Proteinuria, unspecified; R82.4 Acetonuria; Z20.822 Contact with and (suspected) exposure to COVID-19; E11.9 Type 2 diabetes mellitus without complications; I25.10 Atherosclerotic heart disease of native coronary artery without angina pectoris; Z83.3 Family history of diabetes mellitus; Z90.710 Acquired absence of both cervix and uterus; Z93.3 Colostomy status
CPT/HCPCS: 36415; 36569; 71045; 74176; 74250; 80048; 80053; 80069; 81001; 82040; 82962; 83036; 83690; 83735; 83880; 84100; 84478; 85025; 85610; 86850; 86900; 86901; 87081; 96365; 96375; 96376; G0378; J0690; J0696; J1815; J1885; J2001; J2405; J3490; J7060; J7131

== ENCOUNTER 2022-03-04 11:56 | Inpatient (IN) | payer MEDICARE, MEDICAID ==
[~2022-03-04] VITALS: Ht 160 cm; Wt 36.0 kg
[~2022-03-04 11:56] MED LIST changes: +HYDR-4072 PO
[2022-03-04 13:30] LABS: Basophils # (auto) 0 10 ^3/uL (0-0.2); Eosinophils # (auto) 0 10 ^3/uL (0-0.8); Mean Corpuscular Hgb Conc. 32.6 g/dL (32.0-36.0)
[2022-03-04 13:33] LABS: Basophils % (auto) 0.8 % (0.0-2.0); Eosinophils % (auto) 0.2 % (0.0-7.0); Hematocrit 36.6 % (36.0-46.0); Hemoglobin 11.9 g/dL (12.2-16.2); Lymphocytes # (auto) 1.7 10 ^3/uL (0.4-5.4); Lymphocytes % (auto) 27.8 % (10.0-50.0); Mean Corpuscular Hemoglobin 30.9 pg (28.0-32.0); Mean Corpuscular Volume 94.8 fL (80.0-100.0); Monocytes # (auto) 0.3 10 ^3/uL (0-1.3); Monocytes % (auto) 5.6 % (0.0-12.0); Neutrophils % (auto) 65.6 % (37.0-80.0); Nucleated Red Blood Cells % 0.1 %; Red Blood Cells 3.87 10^6/uL (4.0-5.20); Red Cell Distribution Width 17.8 % (11.8-14.3); White Blood Cell 6.2 10^3/uL (4.4-10.8)
[2022-03-04 13:47] LABS: Albumin 3.1 g/dL (3.4-5.0); Calcium 8.8 mg/dL (8.5-10.1); Potassium 3.8 mmol/L (3.5-5.1)
[2022-03-04 13:49] LABS: BUN/Creatinine Ratio 31.4
[2022-03-04 13:51] LABS: Bilirubin, Total 0.2 mg/dL (0.2-1.0)
[2022-03-04 14:01] LABS: INR 1.04 (0.9-1.15); Partial Thromboplastin Time 27.1 sec (24.6-33.4)
[2022-03-04] MEDS ORDERED: SODIUM CHLORIDE 0.9% 2,000 ML IV ONE (14:30)
[2022-03-04] MEDS ORDERED: SODIUM CHLORIDE 0.9% 1,000 ML XX ONE (17:00)
[2022-03-04] MEDS ORDERED: NITROGLYCERIN 0.4 MG SL TAB SL PRN (18:30)
[2022-03-04] MEDS ORDERED: MORPHINE SULFATE INJ 2 MG/ml SYRG IV PRN (18:30)
[2022-03-04 22:17] VITALS: BP 112/62
[2022-03-04 22:18] VITALS: BP 115/87
[2022-03-05] MEDS: HYDROmorphone HCL 2 MG/ML VL/or syr IV PRN ×3 (04:12→16:43)
[2022-03-05 05:00] VITALS: BP 112/61
[2022-03-05 06:47] LABS: Basophils # (auto) 0.1 10 ^3/uL (0-0.2); Eosinophils # (auto) 0 10 ^3/uL (0-0.8); Mean Corpuscular Hemoglobin 30.9 pg (28.0-32.0); Monocytes # (auto) 0.4 10 ^3/uL (0-1.3)
[2022-03-05 06:49] LABS: Basophils % (auto) 1.3 % (0.0-2.0); Eosinophils % (auto) 0.6 % (0.0-7.0); Hematocrit 35.3 % (36.0-46.0); Hemoglobin 11.5 g/dL (12.2-16.2); Lymphocytes # (auto) 1.7 10 ^3/uL (0.4-5.4); Lymphocytes % (auto) 31.1 % (10.0-50.0); Mean Corpuscular Hgb Conc. 32.6 g/dL (32.0-36.0); Mean Corpuscular Volume 94.9 fL (80.0-100.0); Monocytes % (auto) 7.6 % (0.0-12.0); Neutrophils # (auto) 3.3 10 ^3/uL (1.6-8.6); Neutrophils % (auto) 59.4 % (37.0-80.0); Red Blood Cells 3.72 10^6/uL (4.0-5.20); Red Cell Distribution Width 18.1 % (11.8-14.3); White Blood Cell 5.6 10^3/uL (4.4-10.8)
[2022-03-05 07:04] LABS: Albumin 2.8 g/dL (3.4-5.0); Calcium 8.7 mg/dL (8.5-10.1); Potassium 4.3 mmol/L (3.5-5.1)
[2022-03-05 07:09] LABS: BUN/Creatinine Ratio 44.8; Bilirubin, Total 0.6 mg/dL (0.2-1.0); Total Protein 6.3 g/dL (6.4-8.2)
[2022-03-05 09:00] VITALS: BP 102/54
[2022-03-05] MEDS: ENOXAPARIN SOD 30 MG/0.3 ML SYRINGE SC SCH (10:00)
[2022-03-05 13:00] VITALS: BP_SYST 115; BP_SYST 161; BP_DIAS 66; BP_DIAS 92
[2022-03-05 17:00] VITALS: BP 114/60
[2022-03-05 22:00] VITALS: BP 111/61
[2022-03-06] MEDS: HYDROmorphone HCL 2 MG/ML VL/or syr IV PRN ×3 (01:39→19:56)
[2022-03-06 05:00] VITALS: BP_SYST 124; BP_SYST 99; BP_DIAS 51; BP_DIAS 78
[2022-03-06] MEDS: ENOXAPARIN SOD 30 MG/0.3 ML SYRINGE SC SCH (08:25)
[2022-03-06 09:00] VITALS: BP 105/51
[2022-03-06 13:00] VITALS: BP 98/48
[2022-03-06 17:13] VITALS: BP 111/62
[2022-03-06 22:00] VITALS: BP 112/53
[2022-03-07 05:00] VITALS: BP 104/47
[2022-03-07] MEDS: HYDROmorphone HCL 2 MG/ML VL/or syr IV PRN ×3 (05:37→23:18)
[2022-03-07] MEDS: ENOXAPARIN SOD 30 MG/0.3 ML SYRINGE SC SCH (08:23)
[2022-03-07 09:00] VITALS: BP 97/54
[2022-03-07 13:00] VITALS: BP 91/52
[2022-03-07 16:55] VITALS: BP 119/66
[2022-03-07 22:00] VITALS: BP 103/56
[2022-03-08 04:48] VITALS: BP 101/50
[2022-03-08] MEDS: ENOXAPARIN SOD 30 MG/0.3 ML SYRINGE SC SCH (08:20)
[2022-03-08] MEDS: HYDROmorphone HCL 2 MG/ML VL/or syr IV PRN ×2 (08:45→16:30)
[2022-03-08 10:05] VITALS: BP 107/66
[2022-03-08] MEDS ORDERED: FAMOTIDINE (10MG/ML) 2ML VL IV ONE (11:45)
[2022-03-08 13:00] VITALS: BP_SYST 126; BP_SYST 90; BP_DIAS 57; BP_DIAS 59
[2022-03-08 16:44] VITALS: BP 105/75
[2022-03-08 17:05] VITALS: BP 105/75
== END 2022-03-08 18:00 | DRG 393 ==
LOC: EDBD 11:56 → ER 11:56 → OVERFLOW 18:19 → EAST 22:56
PROVIDERS: ADMIT Registered Nurse; ATTEND Internal Medicine
DX: K94.13 Enterostomy malfunction (principal); E43 Unspecified severe protein-calorie malnutrition; Z68.1 Body mass index [BMI] 19.9 or less, adult; E86.0 Dehydration; E11.9 Type 2 diabetes mellitus without complications; I25.10 Atherosclerotic heart disease of native coronary artery without angina pectoris; K21.9 Gastro-esophageal reflux disease without esophagitis; Y83.8 Other surgical procedures as the cause of abnormal reaction of the patient, or of later complication, without mention of misadventure at the time of the procedure; D64.9 Anemia, unspecified; Z20.822 Contact with and (suspected) exposure to COVID-19; Z82.49 Family history of ischemic heart disease and other diseases of the circulatory system; Z83.3 Family history of diabetes mellitus; Z83.79 Family history of other diseases of the digestive system; Z90.49 Acquired absence of other specified parts of digestive tract; Z90.710 Acquired absence of both cervix and uterus; Z88.6 Allergy status to analgesic agent; Y92.89 Other specified places as the place of occurrence of the external cause
CPT/HCPCS: 36415; 74176; 80053; 85025; 85610; 85730; 87081; 96360; 97116; 97530; G0378; J3490

== ENCOUNTER 2022-06-07 04:37 | Inpatient (IN) | payer OTHER, MEDICARE, MEDICAID ==
[~2022-06-07] VITALS: Ht 160 cm; Wt 43.6 kg
[2022-06-07] MEDS ORDERED: IOHEXOL 350 MG/ML 100ML IJ ONE (05:01)
[2022-06-07] MEDS ORDERED: SODIUM CHLORIDE 0.9% 500 ML IVB ONE (06:30)
[2022-06-07] MEDS ORDERED: PANTOPRAZOLE 40 MG/10 ML VIAL INJ IV ONE (06:30)
[2022-06-07] MEDS ORDERED: MORPHINE SULFATE 4 MG/ML SYR/VIAL IV ONE (06:30)
[2022-06-07] MEDS ORDERED: ONDANSETRON HCL 4 MG/2 ML VIAL IV ONE (06:30)
[2022-06-07] MEDS ORDERED: HYDROmorphone HCL 2 MG/ML VL/or syr IV ONE ×2 (06:45→08:15)
[2022-06-07 07:08] LABS: INR 1.21 (0.9-1.15); Partial Thromboplastin Time 29.3 sec (24.6-33.4)
[2022-06-07 07:10] LABS: BUN/Creatinine Ratio 12.7; Calcium 7.6 mg/dL (8.5-10.1); Potassium 3.4 mmol/L (3.5-5.1)
[2022-06-07 07:13] LABS: Bilirubin, Total 0.2 mg/dL (0.2-1.0); Total Protein 6.2 g/dL (6.4-8.2)
[2022-06-07 07:14] LABS: Basophils # (auto) 0 10 ^3/uL (0-0.2); Basophils % (auto) 0.4 % (0.0-2.0); Eosinophils # (auto) 0 10 ^3/uL (0-0.8); Eosinophils % (auto) 0.1 % (0.0-7.0); Hematocrit 34.1 % (36.0-46.0); Hemoglobin 11.3 g/dL (12.2-16.2); Lymphocytes # (auto) 1.2 10 ^3/uL (0.4-5.4); Lymphocytes % (auto) 16.1 % (10.0-50.0); Mean Corpuscular Hemoglobin 30.8 pg (28.0-32.0); Mean Corpuscular Hgb Conc. 33.1 g/dL (32.0-36.0); Mean Corpuscular Volume 93.2 fL (80.0-100.0); Monocytes # (auto) 0.5 10 ^3/uL (0-1.3); Monocytes % (auto) 6.3 % (0.0-12.0); Neutrophils % (auto) 77.1 % (37.0-80.0); Red Blood Cells 3.65 10^6/uL (4.0-5.20); White Blood Cell 7.7 10^3/uL (4.4-10.8)
[2022-06-07 07:47] LABS: Urine Bacteria NONE SEEN /hpf (None Seen); Urine Blood Negative /uL (Negative); Urine WBC 1 /hpf (0 - 5)
[2022-06-07] MEDS ORDERED: cefTRIAXone 1GM/50ML D5W 50 ML IV ONE (12:45)
[2022-06-07] MEDS ORDERED: MORPHINE SULFATE INJ 2 MG/ml SYRG IV PRN (12:45)
[2022-06-07] MEDS ORDERED: NITROGLYCERIN 0.4 MG SL TAB SL PRN (12:45)
[2022-06-07] MEDS: ONDANSETRON HCL 4 MG/2 ML VIAL IV PRN (13:18)
[2022-06-07] MEDS: HYDROmorphone HCL 2 MG/ML VL/or syr IV PRN ×2 (13:18→17:38)
[2022-06-07] MEDS ORDERED: DEXTROSE (50%) 50ML SYRG IV PRN (13:30)
[2022-06-07 13:49] LABS: Cholesterol 81 mg/dL (< 200); Triglycerides 88 mg/dL (< 150)
[2022-06-07 13:52] LABS: HDL Cholesterol 35 mg/dL (40-59); LDL Cholesterol 38 mg/dL (< 100)
[2022-06-07] MEDS: metroNIDAZOLE 500MG/100ML 100 ML IV SCH ×2 (15:29→21:24)
[2022-06-07] MEDS: ACCU-CHEK COMFORT CURVE STRIP VI SCH (15:30)
[2022-06-07] MEDS ORDERED: GASTROGRAFIN 120 ML SOL ONE (15:51)
[2022-06-07 16:35] VITALS: BP 107/56
[2022-06-07] MEDS: InsuLIN REG 1unit/0.01ml Soln (100units/ml) SC SCH (16:43)
[2022-06-07 20:20] VITALS: BP 99/58
[2022-06-07 22:00] VITALS: BP 99/58
[2022-06-08] MEDS: ACCU-CHEK COMFORT CURVE STRIP VI SCH ×4 (00:22→18:05)
[2022-06-08 05:00] VITALS: BP 103/49
[2022-06-08] MEDS: metroNIDAZOLE 500MG/100ML 100 ML IV SCH ×3 (05:44→21:21)
[2022-06-08] MEDS: HYDROmorphone HCL 2 MG/ML VL/or syr IV PRN (05:45)
[2022-06-08] MEDS: InsuLIN REG 1unit/0.01ml Soln (100units/ml) SC SCH ×4 (05:53→18:00)
[2022-06-08 06:23] LABS: Basophils # (auto) 0 10 ^3/uL (0-0.2); Basophils % (auto) 0.8 % (0.0-2.0); Eosinophils # (auto) 0 10 ^3/uL (0-0.8); Eosinophils % (auto) 0.1 % (0.0-7.0); Hematocrit 34.9 % (36.0-46.0); Hemoglobin 11.9 g/dL (12.2-16.2); Lymphocytes # (auto) 1.6 10 ^3/uL (0.4-5.4); Lymphocytes % (auto) 27.9 % (10.0-50.0); Mean Corpuscular Hemoglobin 31.3 pg (28.0-32.0); Mean Corpuscular Hgb Conc. 33.9 g/dL (32.0-36.0); Mean Corpuscular Volume 92.2 fL (80.0-100.0); Monocytes # (auto) 0.4 10 ^3/uL (0-1.3); Monocytes % (auto) 6.9 % (0.0-12.0); Neutrophils # (auto) 3.7 10 ^3/uL (1.6-8.6); Neutrophils % (auto) 64.3 % (37.0-80.0); Nucleated Red Blood Cells % 0.1 %; Red Blood Cells 3.79 10^6/uL (4.0-5.20); Red Cell Distribution Width 17.7 % (11.8-14.3); White Blood Cell 5.7 10^3/uL (4.4-10.8)
[2022-06-08 06:39] LABS: Albumin 2.8 g/dL (3.4-5.0); Calcium 7.8 mg/dL (8.5-10.1); Potassium 3.1 mmol/L (3.5-5.1)
[2022-06-08 06:44] LABS: BUN/Creatinine Ratio 16.7; Bilirubin, Total 0.4 mg/dL (0.2-1.0)
[2022-06-08 08:00] VITALS: BP 88/47
[2022-06-08] MEDS: cefTRIAXone 1GM/50ML D5W 50 ML IV SCH (09:03)
[2022-06-08] MEDS: PANTOPRAZOLE 40 MG/10 ML VIAL INJ IV SCH (09:03)
[2022-06-08] MEDS: ONDANSETRON HCL 4 MG/2 ML VIAL IV PRN (09:20)
[2022-06-08] MEDS: clonazePAM 0.5 MG TAB PO SCH ×2 (11:57→21:21)
[2022-06-08 12:45] VITALS: BP 88/48
[2022-06-08] MEDS ORDERED: POTASSIUM CHLORIDE 60 MEQ, LIDOCAINE 1% (LOCAL ANESTH.) 6 ML in SODIUM CHL 0.9% 500 ML IV ONE (14:00)
[2022-06-08 16:36] VITALS: BP 93/48
[2022-06-08] MEDS: D5W/SOD CHL 0.9%/KCL 40MEQ 1,000 ML IV SCH ×2 (19:28→21:35)
[2022-06-08 20:00] VITALS: BP 88/47
[2022-06-08 22:00] VITALS: BP 107/66
[2022-06-09] MEDS: ACCU-CHEK COMFORT CURVE STRIP VI SCH ×5 (00:18→23:14)
[2022-06-09] MEDS: D5W/SOD CHL 0.9%/KCL 40MEQ 1,000 ML IV SCH ×2 (03:20→14:15)
[2022-06-09 05:00] VITALS: BP 95/55
[2022-06-09] MEDS: InsuLIN REG 1unit/0.01ml Soln (100units/ml) SC SCH ×5 (06:00→23:14)
[2022-06-09] MEDS: metroNIDAZOLE 500MG/100ML 100 ML IV SCH ×3 (06:19→22:52)
[2022-06-09 06:55] LABS: Basophils # (auto) 0 10 ^3/uL (0-0.2); Basophils % (auto) 0.5 % (0.0-2.0); Eosinophils # (auto) 0 10 ^3/uL (0-0.8); Eosinophils % (auto) 0.7 % (0.0-7.0); Hematocrit 30.9 % (36.0-46.0); Hemoglobin 10.4 g/dL (12.2-16.2); Lymphocytes # (auto) 1.4 10 ^3/uL (0.4-5.4); Lymphocytes % (auto) 24.9 % (10.0-50.0); Mean Corpuscular Hemoglobin 31.3 pg (28.0-32.0); Mean Corpuscular Hgb Conc. 33.7 g/dL (32.0-36.0); Mean Corpuscular Volume 92.7 fL (80.0-100.0); Monocytes # (auto) 0.3 10 ^3/uL (0-1.3); Neutrophils # (auto) 3.8 10 ^3/uL (1.6-8.6); Neutrophils % (auto) 67.9 % (37.0-80.0); Red Blood Cells 3.34 10^6/uL (4.0-5.20); White Blood Cell 5.6 10^3/uL (4.4-10.8)
[2022-06-09 07:06] LABS: BUN/Creatinine Ratio 13.3; Calcium 7.2 mg/dL (8.5-10.1); Magnesium 1.2 mg/dL (1.6-2.6); Phosphorus 1.4 mg/dL (2.5-4.90); Potassium 3.7 mmol/L (3.5-5.1)
[2022-06-09 08:00] VITALS: BP_SYST 103; BP_SYST 110; BP_DIAS 54; BP_DIAS 57
[2022-06-09] MEDS ORDERED: POTASSIUM PHOSPHATE 44 MEQ in D5W 5% 250 ML IV ONE (08:15)
[2022-06-09] MEDS: MAGNESIUM SULFATE 1GM/100ML 100 ML IV SCH ×4 (10:00→12:22)
[2022-06-09] MEDS: clonazePAM 0.5 MG TAB PO SCH ×2 (10:27→22:53)
[2022-06-09] MEDS: PANTOPRAZOLE 40 MG/10 ML VIAL INJ IV SCH (10:28)
[2022-06-09] MEDS: cefTRIAXone 1GM/50ML D5W 50 ML IV SCH (10:28)
[2022-06-09 12:00] VITALS: BP 109/58
[2022-06-09] MEDS: ONDANSETRON HCL 4 MG/2 ML VIAL IV PRN (12:12)
[2022-06-09 16:00] VITALS: BP 104/56
[2022-06-09 20:15] VITALS: BP 105/59
[2022-06-09 22:00] VITALS: BP 105/59
[2022-06-10] MEDS: D5W/SOD CHL 0.9%/KCL 40MEQ 1,000 ML IV SCH ×2 (00:11→06:55)
[2022-06-10] MEDS: ACCU-CHEK COMFORT CURVE STRIP VI SCH ×2 (05:17→11:52)
[2022-06-10] MEDS: metroNIDAZOLE 500MG/100ML 100 ML IV SCH ×2 (05:17→13:51)
[2022-06-10] MEDS: InsuLIN REG 1unit/0.01ml Soln (100units/ml) SC SCH ×3 (05:18→12:00)
[2022-06-10 05:21] VITALS: BP 98/51
[2022-06-10 08:00] VITALS: BP_SYST 105; BP_SYST 108; BP_DIAS 59; BP_DIAS 64
[2022-06-10] MEDS: cefTRIAXone 1GM/50ML D5W 50 ML IV SCH (09:49)
[2022-06-10] MEDS: PANTOPRAZOLE 40 MG/10 ML VIAL INJ IV SCH (09:49)
[2022-06-10] MEDS: clonazePAM 0.5 MG TAB PO SCH (09:49)
[2022-06-10] MEDS ORDERED: HYDROcodone-ACET 5/325MG TAB PO ONE (10:00)
== END 2022-06-10 14:06 | disposition hospice, home (50) | DRG 388 ==
LOC: EDBD 04:37 → ER 04:37 → OVERFLOW 12:41 → WEST WING 15:08
PROVIDERS: ADMIT Registered Nurse; ATTEND Internal Medicine
DX: K56.600 Partial intestinal obstruction, unspecified as to cause (principal); E43 Unspecified severe protein-calorie malnutrition; R64 Cachexia; Z68.1 Body mass index [BMI] 19.9 or less, adult; I25.10 Atherosclerotic heart disease of native coronary artery without angina pectoris; E83.51 Hypocalcemia; E87.6 Hypokalemia; E03.9 Hypothyroidism, unspecified; E11.9 Type 2 diabetes mellitus without complications; Z90.49 Acquired absence of other specified parts of digestive tract; Z90.710 Acquired absence of both cervix and uterus; Z93.3 Colostomy status; Z83.79 Family history of other diseases of the digestive system; Z83.3 Family history of diabetes mellitus; Z82.49 Family history of ischemic heart disease and other diseases of the circulatory system; K56.7 Ileus, unspecified
CPT/HCPCS: 36415; 71045; 74018; 74177; 74250; 80048; 80053; 80061; 81001; 82962; 83036; 83690; 83735; 84100; 84443; 84484; 85025; 85610; 85730; 87040; 93005; 96361; 96365; 96375; 96376; C9113; G0378; J0696; J2001; J2405; J3490; J7060

== ENCOUNTER 2022-06-21 10:43 | Emergency (ER) | payer OTHER, MEDICARE, MEDICAID ==
[~2022-06-21] VITALS: Ht 160 cm; Wt 34.5 kg
[2022-06-21 10:44] VITALS: BP 109/60
[2022-06-21] MEDS ORDERED: CLINDAMYCIN 300MG IV 50 ML IV ONE (12:00)
[2022-06-21] MEDS ORDERED: FUROSEMIDE 20 MG/2 ML VIAL IV ONE (12:00)
[2022-06-21] MEDS ORDERED: cefTRIAXone 1GM/50ML D5W 50 ML IV ONE (12:00)
== END 2022-06-21 18:49 | disposition left against medical advice (07) ==
LOC: ER 10:43
DX: L03.115 Cellulitis of right lower limb (principal); L03.116 Cellulitis of left lower limb; I25.10 Atherosclerotic heart disease of native coronary artery without angina pectoris; E11.9 Type 2 diabetes mellitus without complications; E03.9 Hypothyroidism, unspecified; K21.9 Gastro-esophageal reflux disease without esophagitis; Z86.2 Personal history of diseases of the blood and blood-forming organs and certain disorders involving the immune mechanism; Z90.49 Acquired absence of other specified parts of digestive tract; Z90.89 Acquired absence of other organs; Z90.710 Acquired absence of both cervix and uterus; Z79.2 Long term (current) use of antibiotics; Z79.899 Other long term (current) drug therapy; Z88.5 Allergy status to narcotic agent; Z91.018 Allergy to other foods

== ENCOUNTER 2022-06-22 15:30 | Inpatient (IN) | payer OTHER, MEDICARE, MEDICAID ==
[~2022-06-22] VITALS: Ht 160 cm; Wt 41.7 kg
[2022-06-22] MEDS ORDERED: FUROSEMIDE 40 MG/4 ML VIAL IV ONE (18:30)
[2022-06-22 18:54] LABS: Basophils # (auto) 0 10 ^3/uL (0-0.2); Basophils % (auto) 0.5 % (0.0-2.0); Eosinophils # (auto) 0 10 ^3/uL (0-0.8); Eosinophils % (auto) 0.6 % (0.0-7.0); Hemoglobin 10.9 g/dL (12.2-16.2); Lymphocytes # (auto) 1.6 10 ^3/uL (0.4-5.4); Lymphocytes % (auto) 27.6 % (10.0-50.0); Mean Corpuscular Hemoglobin 30.7 pg (28.0-32.0); Mean Corpuscular Hgb Conc. 32.1 g/dL (32.0-36.0); Mean Corpuscular Volume 95.8 fL (80.0-100.0); Monocytes # (auto) 0.4 10 ^3/uL (0-1.3); Monocytes % (auto) 6.9 % (0.0-12.0); Neutrophils # (auto) 3.8 10 ^3/uL (1.6-8.6); Neutrophils % (auto) 64.4 % (37.0-80.0); Red Blood Cells 3.55 10^6/uL (4.0-5.20); Red Cell Distribution Width 18.1 % (11.8-14.3)
[2022-06-22 19:13] LABS: Albumin 3.2 g/dL (3.4-5.0); Calcium 7.9 mg/dL (8.5-10.1)
[2022-06-22 19:16] LABS: BUN/Creatinine Ratio 11.4; Bilirubin, Total 0.2 mg/dL (0.2-1.0); CRP High Sensitivity 0.39 mg/dL (< 0.3)
[2022-06-22 19:28] LABS: Potassium 2.8 mmol/L (3.5-5.1)
[2022-06-23] MEDS ORDERED: POTASSIUM EFFERVESENT TAB 25 MEQ PO ONE (01:45)
[2022-06-23] MEDS ORDERED: SOD CHL 0.9%/ KCL 40MEQ 1,000 ML IV ONE (02:45)
[2022-06-23] MEDS ORDERED: cefTRIAXone 1GM/50ML D5W 50 ML IV ONE (02:45)
[2022-06-23] MEDS ORDERED: DEXTROSE (50%) 50ML SYRG IV PRN (02:45)
[2022-06-23] MEDS ORDERED: KETOROLAC TROMETH 30 MG/ML 1ML VIAL IV ONE (03:15)
[2022-06-23 03:30] LABS: Urine Bacteria NONE SEEN /hpf (None Seen); Urine Blood Negative /uL (Negative); Urine Mucus FEW (None Seen); Urine Specific Gravity 1.014 (1.001-1.035); Urine WBC 5 /hpf (0 - 5)
[2022-06-23] MEDS ORDERED: GASTROGRAFIN 120 ML SOL ONE (09:55)
[2022-06-23] MEDS: ENOXAPARIN SOD 40 MG/0.4 ML SYRINGE SC SCH ×2 (10:00→10:26)
[2022-06-23 10:21] LABS: BUN/Creatinine Ratio 15.8; Calcium 7.8 mg/dL (8.5-10.1); Magnesium 1.9 mg/dL (1.6-2.6)
[2022-06-23] MEDS: CLINDAMYCIN 600MG IV 50 ML IV SCH ×3 (10:26→23:01)
[2022-06-23] MEDS: PANTOPRAZOLE 40 MG/10 ML VIAL INJ IV SCH (10:26)
[2022-06-23] MEDS: InsuLIN REG 1unit/0.01ml Soln (100units/ml) SC SCH ×3 (10:27→18:00)
[2022-06-23] MEDS: ACCU-CHEK COMFORT CURVE STRIP VI SCH ×3 (10:27→18:00)
[2022-06-23 10:44] LABS: Potassium 2.5 mmol/L (3.5-5.1)
[2022-06-23] MEDS ORDERED: POTASSIUM CHL 20 Meq TABLET PO ONE (11:00)
[2022-06-23] MEDS ORDERED: MAGNESIUM OXIDE 400 MG TAB PO ONE (11:00)
[2022-06-23] MEDS: ONDANSETRON HCL 4 MG/2 ML VIAL IV PRN (11:43)
[2022-06-23] MEDS: MORPHINE SULFATE INJ 2 MG/ml SYRG IV PRN ×2 (11:45→16:13)
[2022-06-23] MEDS ORDERED: FUROSEMIDE 20 MG/2 ML VIAL IV ONE (18:00)
[2022-06-23 18:04] LABS: BUN/Creatinine Ratio 12.9; Calcium 7.7 mg/dL (8.5-10.1)
[2022-06-23] MEDS: POTASSIUM CHL 20 Meq TABLET PO ONE ×2 (18:09→18:17)
[2022-06-23 21:58] VITALS: BP 102/54
[2022-06-23] MEDS: HYDROcodone-ACET 5/325MG TAB PO PRN (23:37)
[2022-06-24] MEDS: ACCU-CHEK COMFORT CURVE STRIP VI SCH ×4 (00:07→18:12)
[2022-06-24] MEDS: ONDANSETRON HCL 4 MG/2 ML VIAL IV PRN (01:54)
[2022-06-24] MEDS: MORPHINE SULFATE INJ 2 MG/ml SYRG IV PRN ×4 (02:05→18:40)
[2022-06-24] MEDS: HYDROcodone-ACET 5/325MG TAB PO PRN (06:00)
[2022-06-24] MEDS: InsuLIN REG 1unit/0.01ml Soln (100units/ml) SC SCH ×4 (06:36→18:00)
[2022-06-24] MEDS: CLINDAMYCIN 600MG IV 50 ML IV SCH ×3 (06:36→21:59)
[2022-06-24 06:54] LABS: Basophils # (auto) 0 10 ^3/uL (0-0.2); Basophils % (auto) 0.8 % (0.0-2.0); Eosinophils # (auto) 0.1 10 ^3/uL (0-0.8); Eosinophils % (auto) 1.3 % (0.0-7.0); Hematocrit 29.4 % (36.0-46.0); Hemoglobin 9.4 g/dL (12.2-16.2); Lymphocytes # (auto) 1.6 10 ^3/uL (0.4-5.4); Lymphocytes % (auto) 36.6 % (10.0-50.0); Mean Corpuscular Hemoglobin 30.2 pg (28.0-32.0); Mean Corpuscular Hgb Conc. 31.9 g/dL (32.0-36.0); Mean Corpuscular Volume 94.6 fL (80.0-100.0); Monocytes # (auto) 0.4 10 ^3/uL (0-1.3); Monocytes % (auto) 8.8 % (0.0-12.0); Neutrophils # (auto) 2.3 10 ^3/uL (1.6-8.6); Neutrophils % (auto) 52.5 % (37.0-80.0); Nucleated Red Blood Cells % 0.3 %; Red Blood Cells 3.11 10^6/uL (4.0-5.20); Red Cell Distribution Width 18.4 % (11.8-14.3); White Blood Cell 4.4 10^3/uL (4.4-10.8)
[2022-06-24 07:12] LABS: Albumin 2.4 g/dL (3.4-5.0); Calcium 7.8 mg/dL (8.5-10.1); Magnesium 1.7 mg/dL (1.6-2.6); Potassium 4.4 mmol/L (3.5-5.1)
[2022-06-24 07:13] LABS: BUN/Creatinine Ratio 14.3
[2022-06-24 07:16] LABS: Bilirubin, Total 0.3 mg/dL (0.2-1.0); Total Protein 5.4 g/dL (6.4-8.2)
[2022-06-24 08:00] VITALS: BP 104/62
[2022-06-24 08:46] VITALS: BP 104/62
[2022-06-24] MEDS: PANTOPRAZOLE 40 MG/10 ML VIAL INJ IV SCH (09:24)
[2022-06-24] MEDS: cefTRIAXone 1GM/50ML D5W 50 ML IV SCH (09:24)
[2022-06-24] MEDS: ENOXAPARIN SOD 40 MG/0.4 ML SYRINGE SC SCH (09:25)
[2022-06-24 12:54] VITALS: BP 115/64
[2022-06-24] MEDS ORDERED: FUROSEMIDE 20 MG/2 ML VIAL IV ONE (14:30)
[2022-06-24 17:00] VITALS: BP 111/63
[2022-06-24 20:00] VITALS: BP 119/63
[2022-06-24 22:00] VITALS: BP 119/63
[2022-06-24] MEDS: clonazePAM 0.5 MG TAB PO SCH (22:00)
[2022-06-24] MEDS: FLORASTOR (S. BOULARDII) 250 MG CAP PO SCH (22:00)
[2022-06-25] VITALS (7 sets, daily range): BP systolic 112–154; BP diastolic 59–92
[2022-06-25] MEDS: ACCU-CHEK COMFORT CURVE STRIP VI SCH ×3 (00:15→11:55)
[2022-06-25] MEDS: MORPHINE SULFATE INJ 2 MG/ml SYRG IV PRN ×2 (04:19→08:44)
[2022-06-25] MEDS: InsuLIN REG 1unit/0.01ml Soln (100units/ml) SC SCH ×3 (06:00→11:56)
[2022-06-25] MEDS: clonazePAM 0.5 MG TAB PO SCH ×3 (06:01→21:57)
[2022-06-25] MEDS: CLINDAMYCIN 600MG IV 50 ML IV SCH ×3 (06:01→21:57)
[2022-06-25] MEDS: cefTRIAXone 1GM/50ML D5W 50 ML IV SCH (08:42)
[2022-06-25] MEDS: FLORASTOR (S. BOULARDII) 250 MG CAP PO SCH ×2 (09:50→21:57)
[2022-06-25] MEDS: PANTOPRAZOLE 40 MG/10 ML VIAL INJ IV SCH (09:50)
[2022-06-25] MEDS: ENOXAPARIN SOD 40 MG/0.4 ML SYRINGE SC SCH (09:57)
[2022-06-25] MEDS ORDERED: HYDROcodone-ACET 5/325MG TAB PO ONE (12:45)
[2022-06-25] MEDS: HYDROcodone-ACET 5/325MG TAB PO PRN (18:50)
[2022-06-26] VITALS (7 sets, daily range): BP systolic 104–137; BP diastolic 53–71
[2022-06-26] MEDS: HYDROcodone-ACET 5/325MG TAB PO PRN ×4 (01:12→20:40)
[2022-06-26] MEDS: clonazePAM 0.5 MG TAB PO SCH ×3 (06:18→21:12)
[2022-06-26] MEDS: CLINDAMYCIN 600MG IV 50 ML IV SCH ×3 (06:18→21:12)
[2022-06-26] MEDS: cefTRIAXone 1GM/50ML D5W 50 ML IV SCH (08:32)
[2022-06-26] MEDS: ENOXAPARIN SOD 40 MG/0.4 ML SYRINGE SC SCH (10:00)
[2022-06-26] MEDS: FLORASTOR (S. BOULARDII) 250 MG CAP PO SCH ×2 (10:50→21:12)
[2022-06-26] MEDS: PANTOPRAZOLE 40 MG/10 ML VIAL INJ IV SCH (10:50)
[2022-06-27] MEDS: HYDROcodone-ACET 5/325MG TAB PO PRN ×2 (04:40→11:07)
[2022-06-27 05:00] VITALS: BP 114/66
[2022-06-27] MEDS: CLINDAMYCIN 600MG IV 50 ML IV SCH (05:27)
[2022-06-27] MEDS: clonazePAM 0.5 MG TAB PO SCH (05:27)
[2022-06-27 08:00] VITALS: BP 115/59
[2022-06-27 09:00] VITALS: BP 115/54
[2022-06-27] MEDS: cefTRIAXone 1GM/50ML D5W 50 ML IV SCH (09:30)
[2022-06-27] MEDS: PANTOPRAZOLE 40 MG/10 ML VIAL INJ IV SCH (09:30)
[2022-06-27] MEDS: FLORASTOR (S. BOULARDII) 250 MG CAP PO SCH (09:31)
[2022-06-27] MEDS: ENOXAPARIN SOD 40 MG/0.4 ML SYRINGE SC SCH (09:31)
[2022-06-27 11:17] VITALS: BP 115/59
[2022-06-27 13:00] VITALS: BP 132/65
== END 2022-06-27 13:52 | disposition hospice, home (50) | DRG 603 ==
LOC: ER 15:30 → EDBD 15:30 → OVERFLOW 06-23 02:49 → WEST WING 06-23 21:06
PROVIDERS: ADMIT Nurse Practitioner; ATTEND Internal Medicine
DX: L03.115 Cellulitis of right lower limb (principal); E44.0 Moderate protein-calorie malnutrition; R64 Cachexia; Z79.84 Long term (current) use of oral hypoglycemic drugs; L03.116 Cellulitis of left lower limb; E87.6 Hypokalemia; D64.9 Anemia, unspecified; E11.9 Type 2 diabetes mellitus without complications; K21.9 Gastro-esophageal reflux disease without esophagitis; R53.81 Other malaise; Z20.822 Contact with and (suspected) exposure to COVID-19; Z90.49 Acquired absence of other specified parts of digestive tract; I25.10 Atherosclerotic heart disease of native coronary artery without angina pectoris; Z51.5 Encounter for palliative care; Z68.24 Body mass index [BMI] 24.0-24.9, adult; Z88.5 Allergy status to narcotic agent; Z80.9 Family history of malignant neoplasm, unspecified; Z82.49 Family history of ischemic heart disease and other diseases of the circulatory system; Z83.3 Family history of diabetes mellitus; Z83.79 Family history of other diseases of the digestive system; Z90.710 Acquired absence of both cervix and uterus; Z93.3 Colostomy status
CPT/HCPCS: 36415; 73630; 74176; 80048; 80053; 81001; 82962; 83735; 83880; 84132; 84484; 85025; 86141; 87040; 87426; 93005; 93970; 96365; 96367; 96368; 96375; C9113; G0378; J0696; J1885; J2405; J3490

== ENCOUNTER 2022-07-12 14:54 | Inpatient (IN) | payer OTHER, MEDICARE, MEDICAID ==
[~2022-07-12] VITALS: Ht 154.9 cm; Wt 45.0 kg
[2022-07-12] MEDS ORDERED: ONDANSETRON HCL 4 MG/2 ML VIAL IV ONE (15:15)
[2022-07-12] MEDS ORDERED: SODIUM CHLORIDE 0.9% 500 ML IVB ONE (15:15)
[2022-07-12] MEDS ORDERED: MORPHINE SULFATE 4 MG/ML SYR/VIAL IV ONE (15:15)
[2022-07-12 16:45] LABS: Albumin 3.3 g/dL (3.4-5.0); BUN/Creatinine Ratio 23.1; Calcium 8.7 mg/dL (8.5-10.1); Potassium 4.2 mmol/L (3.5-5.1)
[2022-07-12 16:48] LABS: Basophils # (auto) 0 10 ^3/uL (0-0.2); Basophils % (auto) 0.5 % (0.0-2.0); Bilirubin, Total 0.3 mg/dL (0.2-1.0); Eosinophils # (auto) 0 10 ^3/uL (0-0.8); Eosinophils % (auto) 0.2 % (0.0-7.0); Hematocrit 33.2 % (36.0-46.0); Hemoglobin 10.7 g/dL (12.2-16.2); Lymphocytes # (auto) 1.1 10 ^3/uL (0.4-5.4); Lymphocytes % (auto) 19.7 % (10.0-50.0); Mean Corpuscular Hemoglobin 30.1 pg (28.0-32.0); Mean Corpuscular Hgb Conc. 32.3 g/dL (32.0-36.0); Mean Corpuscular Volume 93.4 fL (80.0-100.0); Monocytes # (auto) 0.2 10 ^3/uL (0-1.3); Monocytes % (auto) 4.3 % (0.0-12.0); Neutrophils # (auto) 4.2 10 ^3/uL (1.6-8.6); Neutrophils % (auto) 75.3 % (37.0-80.0); Nucleated Red Blood Cells % 0.1 %; Red Blood Cells 3.56 10^6/uL (4.0-5.20); Red Cell Distribution Width 16.5 % (11.8-14.3); Total Protein 6.9 g/dL (6.4-8.2); White Blood Cell 5.6 10^3/uL (4.4-10.8)
[2022-07-12] MEDS ORDERED: ONDANSETRON HCL 4 MG/2 ML VIAL IV PRN (21:15)
[2022-07-12] MEDS ORDERED: MORPHINE SULFATE INJ 2 MG/ml SYRG IV PRN (21:15)
[2022-07-12] MEDS: ONDANSETRON HCL 4 MG/2 ML VIAL IV ONE (23:14)
[2022-07-12] MEDS: MORPHINE SULFATE 4 MG/ML SYR/VIAL IV ONE (23:15)
[2022-07-13] MEDS: MORPHINE SULFATE 4 MG/ML SYR/VIAL IV ONE (01:03)
[2022-07-13] MEDS: ONDANSETRON HCL 4 MG/2 ML VIAL IV ONE (01:03)
[2022-07-13] MEDS: D5W/SOD CHLO 0.9% 1,000 ML IV SCH ×2 (01:48→10:47)
[2022-07-13 04:06] LABS: Basophils # (auto) 0 10 ^3/uL (0-0.2); Basophils % (auto) 0.7 % (0.0-2.0); Eosinophils # (auto) 0 10 ^3/uL (0-0.8); Eosinophils % (auto) 0.1 % (0.0-7.0); Hematocrit 35.4 % (36.0-46.0); Hemoglobin 11.2 g/dL (12.2-16.2); Lymphocytes # (auto) 1.3 10 ^3/uL (0.4-5.4); Lymphocytes % (auto) 22.2 % (10.0-50.0); Mean Corpuscular Hemoglobin 29.9 pg (28.0-32.0); Mean Corpuscular Hgb Conc. 31.8 g/dL (32.0-36.0); Mean Corpuscular Volume 94.2 fL (80.0-100.0); Monocytes # (auto) 0.4 10 ^3/uL (0-1.3); Monocytes % (auto) 5.9 % (0.0-12.0); Neutrophils # (auto) 4.2 10 ^3/uL (1.6-8.6); Neutrophils % (auto) 71.1 % (37.0-80.0); Nucleated Red Blood Cells % 0.1 %; Red Blood Cells 3.76 10^6/uL (4.0-5.20); Red Cell Distribution Width 16.1 % (11.8-14.3)
[2022-07-13 04:26] LABS: Calcium 8.7 mg/dL (8.5-10.1); Potassium 3.1 mmol/L (3.5-5.1)
[2022-07-13 04:29] LABS: Bilirubin, Total 0.4 mg/dL (0.2-1.0)
[2022-07-13] MEDS ORDERED: PANTOPRAZOLE 40 MG/10 ML VIAL INJ IV SCH (10:00)
[2022-07-13] MEDS ORDERED: HYDROcodone-ACET 5/325MG TAB PO PRN (13:30)
[2022-07-13] MEDS ORDERED: POTASSIUM CHL 20 Meq TABLET PO ONE (13:45)
[2022-07-13 13:47] LABS: Urine Blood Normal /uL (Negative)
[2022-07-13 17:00] VITALS: BP 108/64
== END 2022-07-13 18:21 | disposition home or self-care (01) | DRG 392 ==
LOC: ER 14:54 → EDBD 14:54 → OVERFLOW 18:23 → EDUNIT# 21:17 → OVERFLOW 21:17
PROVIDERS: ADMIT Nurse Practitioner; ATTEND Internal Medicine
DX: R10.30 Lower abdominal pain, unspecified (principal); Z90.710 Acquired absence of both cervix and uterus; Z93.3 Colostomy status; Z88.5 Allergy status to narcotic agent; Z20.822 Contact with and (suspected) exposure to COVID-19
CPT/HCPCS: 36415; 74176; 80053; 81003; 82150; 83690; 85025; 87426; 96361; 96374; 96375; 96376; C9113; G0378; J2405

== ENCOUNTER 2022-07-19 04:11 | Inpatient (IN) | payer OTHER, MEDICARE, MEDICAID ==
[~2022-07-19] VITALS: Ht 160 cm; Wt 83.7 kg
[2022-07-19] MEDS ORDERED: ONDANSETRON HCL 4 MG/2 ML VIAL IV ONE (05:15)
[2022-07-19] MEDS ORDERED: MORPHINE SULFATE 4 MG/ML SYR/VIAL IV ONE (05:15)
[2022-07-19] MEDS ORDERED: cloNIDine HCL 0.1 MG TAB PO ONE (07:00)
[2022-07-19] MEDS ORDERED: cefTRIAXone 1GM/50ML D5W 50 ML IV ONE (07:00)
[2022-07-19] MEDS ORDERED: SODIUM CHLORIDE 0.9% 1,000 ML IV ONE (07:00)
[2022-07-19] MEDS ORDERED: MORPHINE SULFATE INJ 2 MG/ml SYRG IV ONE (07:00)
[2022-07-19 07:39] LABS: Basophils # (auto) 0 10 ^3/uL (0-0.2); Basophils % (auto) 0.1 % (0.0-2.0); Eosinophils # (auto) 0 10 ^3/uL (0-0.8); Hematocrit 36.4 % (36.0-46.0); Hemoglobin 11.7 g/dL (12.2-16.2); Lymphocytes # (auto) 0.8 10 ^3/uL (0.4-5.4); Lymphocytes % (auto) 11.5 % (10.0-50.0); Mean Corpuscular Hemoglobin 30.2 pg (28.0-32.0); Mean Corpuscular Hgb Conc. 32.2 g/dL (32.0-36.0); Mean Corpuscular Volume 93.8 fL (80.0-100.0); Monocytes # (auto) 0.2 10 ^3/uL (0-1.3); Neutrophils # (auto) 6.3 10 ^3/uL (1.6-8.6); Neutrophils % (auto) 85.4 % (37.0-80.0); Red Blood Cells 3.88 10^6/uL (4.0-5.20); Red Cell Distribution Width 16.2 % (11.8-14.3); White Blood Cell 7.4 10^3/uL (4.4-10.8)
[2022-07-19 07:41] LABS: Albumin 3.7 g/dL (3.4-5.0); Calcium 9.3 mg/dL (8.5-10.1); Potassium 3.5 mmol/L (3.5-5.1)
[2022-07-19 07:46] LABS: BUN/Creatinine Ratio 10.9; Bilirubin, Total 0.3 mg/dL (0.2-1.0); Total Protein 8.1 g/dL (6.4-8.2)
[2022-07-19 07:56] LABS: INR 1.18 (0.9-1.15); Partial Thromboplastin Time 24.5 sec (24.6-33.4)
[2022-07-19] MEDS ORDERED: NITROGLYCERIN 0.4 MG SL TAB SL PRN (13:45)
[2022-07-19] MEDS ORDERED: MORPHINE SULFATE INJ 2 MG/ml SYRG IV PRN (13:45)
[2022-07-19] MEDS ORDERED: ACETAMINOPHEN 325 MG TAB PO PRN (13:45)
[2022-07-19] MEDS ORDERED: PANTOPRAZOLE 40 MG/10 ML VIAL INJ IV ONE (13:45)
[2022-07-19] MEDS ORDERED: DEXTROSE (50%) 50ML SYRG IV PRN (13:45)
[2022-07-19] MEDS: MORPHINE SULFATE INJ 2 MG/ml SYRG IV PRN ×2 (15:06→21:14)
[2022-07-19] MEDS: SODIUM CHLORIDE 0.9% 1,000 ML IV SCH (15:07)
[2022-07-19] MEDS: ONDANSETRON HCL 4 MG/2 ML VIAL IV PRN (15:07)
[2022-07-19] MEDS: InsuLIN REG 1unit/0.01ml Soln (100units/ml) SC SCH (17:36)
[2022-07-19] MEDS: ACCU-CHEK COMFORT CURVE STRIP VI SCH (17:36)
[2022-07-20] VITALS (7 sets, daily range): BP systolic 102–124; BP diastolic 59–70
[2022-07-20] MEDS: ACCU-CHEK COMFORT CURVE STRIP VI SCH ×4 (00:15→17:17)
[2022-07-20] MEDS: MORPHINE SULFATE INJ 2 MG/ml SYRG IV PRN ×3 (03:35→18:00)
[2022-07-20] MEDS: SODIUM CHLORIDE 0.9% 1,000 ML IV SCH (03:36)
[2022-07-20] MEDS: InsuLIN REG 1unit/0.01ml Soln (100units/ml) SC SCH ×5 (05:39→23:20)
[2022-07-20 06:50] LABS: Albumin 2.7 g/dL (3.4-5.0); Calcium 7.9 mg/dL (8.5-10.1); Potassium 3.5 mmol/L (3.5-5.1)
[2022-07-20 06:53] LABS: Bilirubin, Total 0.4 mg/dL (0.2-1.0); Total Protein 6.3 g/dL (6.4-8.2)
[2022-07-20 07:10] LABS: Basophils # (auto) 0 10 ^3/uL (0-0.2); Basophils % (auto) 0.3 % (0.0-2.0); Eosinophils # (auto) 0 10 ^3/uL (0-0.8); Hematocrit 34.2 % (36.0-46.0); Hemoglobin 10.9 g/dL (12.2-16.2); Lymphocytes # (auto) 1.3 10 ^3/uL (0.4-5.4); Lymphocytes % (auto) 15.3 % (10.0-50.0); Mean Corpuscular Hemoglobin 29.8 pg (28.0-32.0); Monocytes # (auto) 0.6 10 ^3/uL (0-1.3); Neutrophils # (auto) 6.7 10 ^3/uL (1.6-8.6); Neutrophils % (auto) 77.4 % (37.0-80.0); Nucleated Red Blood Cells % 0.1 %; Red Blood Cells 3.68 10^6/uL (4.0-5.20); Red Cell Distribution Width 16.4 % (11.8-14.3); White Blood Cell 8.7 10^3/uL (4.4-10.8)
[2022-07-20] MEDS: PANTOPRAZOLE 40 MG/10 ML VIAL INJ IV SCH (09:38)
[2022-07-20] MEDS: MINERAL OIL 30 ML PO ONE ×2 (15:00→17:18)
[2022-07-20] MEDS: FLEET MINERAL OIL ENEMA 133 ML PR ONE ×2 (15:00→17:19)
[2022-07-20] MEDS: D5W/SOD CHLO 0.9% 1,000 ML IV SCH (17:18)
[2022-07-20] MEDS: ONDANSETRON HCL 4 MG/2 ML VIAL IV PRN (18:00)
[2022-07-20] MEDS: METOCLOPRAMIDE HCL 5MG/ml INJ 2ml VIAL IV SCH (20:24)
[2022-07-21] MEDS: HYDROcodone-ACET 5/325MG TAB PO PRN ×2 (02:51→03:12)
[2022-07-21] MEDS: D5W/SOD CHLO 0.9% 1,000 ML IV SCH ×2 (03:00→16:53)
[2022-07-21] MEDS: ONDANSETRON HCL 4 MG/2 ML VIAL IV PRN ×3 (03:19→20:15)
[2022-07-21] MEDS: MORPHINE SULFATE INJ 2 MG/ml SYRG IV PRN ×3 (03:24→20:18)
[2022-07-21 05:00] VITALS: BP 120/60
[2022-07-21] MEDS: InsuLIN REG 1unit/0.01ml Soln (100units/ml) SC SCH ×3 (06:00→17:08)
[2022-07-21] MEDS: ACCU-CHEK COMFORT CURVE STRIP VI SCH ×4 (06:01→17:08)
[2022-07-21] MEDS: METOCLOPRAMIDE HCL 5MG/ml INJ 2ml VIAL IV SCH ×2 (06:01→16:52)
[2022-07-21 09:12] VITALS: BP 113/60
[2022-07-21] MEDS: PANTOPRAZOLE 40 MG/10 ML VIAL INJ IV SCH (09:53)
[2022-07-21] MEDS: ENOXAPARIN SOD 30 MG/0.3 ML SYRINGE SC SCH (09:54)
[2022-07-21] MEDS ORDERED: GASTROGRAFIN 120 ML SOL ONE (12:14)
[2022-07-21 13:00] VITALS: BP 120/68
[2022-07-21 17:29] VITALS: BP 132/69
[2022-07-21 22:00] VITALS: BP 127/69
[2022-07-22] MEDS: METOCLOPRAMIDE HCL 5MG/ml INJ 2ml VIAL IV SCH ×4 (00:14→20:46)
[2022-07-22] MEDS: ONDANSETRON HCL 4 MG/2 ML VIAL IV PRN ×2 (01:53→05:47)
[2022-07-22] MEDS: MORPHINE SULFATE INJ 2 MG/ml SYRG IV PRN ×5 (01:55→20:04)
[2022-07-22] MEDS: ACCU-CHEK COMFORT CURVE STRIP VI SCH ×4 (01:56→16:51)
[2022-07-22] MEDS: THROAT LOZENGES(CEPASTAT) MT PRN ×3 (01:59→15:01)
[2022-07-22 05:00] VITALS: BP 128/63
[2022-07-22] MEDS: D5W/SOD CHLO 0.9% 1,000 ML IV SCH ×2 (05:15→18:35)
[2022-07-22] MEDS: InsuLIN REG 1unit/0.01ml Soln (100units/ml) SC SCH ×4 (06:00→16:50)
[2022-07-22 09:00] VITALS: BP 134/75
[2022-07-22 09:14] LABS: Albumin 3.2 g/dL (3.4-5.0); BUN/Creatinine Ratio 17.9; Calcium 8.6 mg/dL (8.5-10.1); Magnesium 2.2 mg/dL (1.6-2.6)
[2022-07-22 09:17] LABS: Bilirubin, Total 0.8 mg/dL (0.2-1.0); Phosphorus 2.4 mg/dL (2.5-4.90); Total Protein 6.5 g/dL (6.4-8.2)
[2022-07-22 09:23] LABS: Potassium 2.9 mmol/L (3.5-5.1)
[2022-07-22] MEDS: PANTOPRAZOLE 40 MG/10 ML VIAL INJ IV SCH (09:27)
[2022-07-22] MEDS: ENOXAPARIN SOD 30 MG/0.3 ML SYRINGE SC SCH (09:27)
[2022-07-22] MEDS ORDERED: POTASSIUM CHL 20 Meq TABLET PO ONE ×2 (10:00→18:00)
[2022-07-22 10:33] LABS: INR 1.11 (0.9-1.15)
[2022-07-22] MEDS ORDERED: TPN PER PHARMACY 0 ML IV SCH (11:15)
[2022-07-22] MEDS ORDERED: POTASSIUM EFFERVESENT TAB 25 MEQ GT ONE ×2 (11:15→22:00)
[2022-07-22 13:00] VITALS: BP 114/63
[2022-07-22] MEDS ORDERED: LIDOCAINE 1% (LOCAL ANESTH.) PF 5ml SDV ID ONE (15:45)
[2022-07-22 17:00] VITALS: BP 133/68
[2022-07-22] MEDS ORDERED: AMINO ACID INFUSION IN D10W 1,000 ML IV NR (20:00)
[2022-07-22 22:00] VITALS: BP 138/67
[2022-07-22] MEDS: SODIUM CHLOR 0.9% PF (SALINE LOCK) 10ML VIAL/SYR IV SCH (22:00)
[2022-07-23] MEDS: D5W/SOD CHLO 0.9% 1,000 ML IV SCH ×2 (00:39→20:00)
[2022-07-23 05:00] VITALS: BP 133/67
[2022-07-23] MEDS: THROAT LOZENGES(CEPASTAT) MT PRN (05:24)
[2022-07-23] MEDS: MORPHINE SULFATE INJ 2 MG/ml SYRG IV PRN ×3 (05:25→17:42)
[2022-07-23] MEDS: InsuLIN REG 1unit/0.01ml Soln (100units/ml) SC SCH ×4 (06:00→16:56)
[2022-07-23 06:34] LABS: Potassium 4.3 mmol/L (3.5-5.1)
[2022-07-23 06:46] LABS: Albumin 2.8 g/dL (3.4-5.0); BUN/Creatinine Ratio 22.6; Bilirubin, Total 0.6 mg/dL (0.2-1.0); Calcium 8.4 mg/dL (8.5-10.1); Phosphorus 2.3 mg/dL (2.5-4.90); Total Protein 5.8 g/dL (6.4-8.2)
[2022-07-23] MEDS: METOCLOPRAMIDE HCL 5MG/ml INJ 2ml VIAL IV SCH ×3 (07:04→22:45)
[2022-07-23] MEDS: ACCU-CHEK COMFORT CURVE STRIP VI SCH ×4 (08:07→16:56)
[2022-07-23] MEDS: ENOXAPARIN SOD 30 MG/0.3 ML SYRINGE SC SCH ×2 (08:07→08:09)
[2022-07-23] MEDS: PANTOPRAZOLE 40 MG/10 ML VIAL INJ IV SCH (08:07)
[2022-07-23] MEDS: SODIUM CHLOR 0.9% PF (SALINE LOCK) 10ML VIAL/SYR IV SCH ×2 (08:07→22:00)
[2022-07-23 08:39] VITALS: BP 134/71
[2022-07-23] MEDS ORDERED: SODIUM PHOSPHATES 20 MEQ in SODIUM CHL 0.9% 100 ML IV ONE (11:00)
[2022-07-23 13:00] VITALS: BP 123/60
[2022-07-23 17:00] VITALS: BP 128/64
[2022-07-23] MEDS ORDERED: TPN PER PHARMACY IV NR ×8 (20:00)
[2022-07-23 22:00] VITALS: BP 118/61
[2022-07-24] MEDS: MORPHINE SULFATE INJ 2 MG/ml SYRG IV PRN ×6 (03:47→23:46)
[2022-07-24 05:00] VITALS: BP 108/55
[2022-07-24] MEDS: METOCLOPRAMIDE HCL 5MG/ml INJ 2ml VIAL IV SCH ×3 (06:00→22:07)
[2022-07-24] MEDS: InsuLIN REG 1unit/0.01ml Soln (100units/ml) SC SCH ×3 (06:00→16:25)
[2022-07-24] MEDS: ACCU-CHEK COMFORT CURVE STRIP VI SCH ×3 (06:00→16:25)
[2022-07-24] MEDS: THROAT LOZENGES(CEPASTAT) MT PRN (06:20)
[2022-07-24 07:29] LABS: Potassium 3.9 mmol/L (3.5-5.1)
[2022-07-24 08:00] VITALS: BP 125/64
[2022-07-24 08:18] LABS: BUN/Creatinine Ratio 21.2; Bilirubin, Total 0.5 mg/dL (0.2-1.0); Calcium 8.6 mg/dL (8.5-10.1); Magnesium 2.4 mg/dL (1.6-2.6); Phosphorus 3.2 mg/dL (2.5-4.90)
[2022-07-24] MEDS: ENOXAPARIN SOD 30 MG/0.3 ML SYRINGE SC SCH (08:58)
[2022-07-24] MEDS: SODIUM CHLOR 0.9% PF (SALINE LOCK) 10ML VIAL/SYR IV SCH ×2 (08:58→22:08)
[2022-07-24] MEDS: PANTOPRAZOLE 40 MG/10 ML VIAL INJ IV SCH (08:58)
[2022-07-24] MEDS: clonazePAM 0.5 MG TAB PO PRN (10:17)
[2022-07-24 12:00] VITALS: BP 148/58
[2022-07-24 16:00] VITALS: BP 117/57
[2022-07-24] MEDS ORDERED: TPN PER PHARMACY IV NR ×8 (20:00)
[2022-07-24] MEDS: D5W/SOD CHLO 0.9% 1,000 ML IV SCH (20:00)
[2022-07-24 22:00] VITALS: BP 128/66
[2022-07-25] MEDS: ACCU-CHEK COMFORT CURVE STRIP VI SCH ×4 (00:06→18:08)
[2022-07-25 05:00] VITALS: BP 127/64
[2022-07-25] MEDS: MORPHINE SULFATE INJ 2 MG/ml SYRG IV PRN ×4 (05:15→21:08)
[2022-07-25] MEDS: METOCLOPRAMIDE HCL 5MG/ml INJ 2ml VIAL IV SCH ×3 (05:16→21:09)
[2022-07-25] MEDS: InsuLIN REG 1unit/0.01ml Soln (100units/ml) SC SCH ×4 (05:24→18:00)
[2022-07-25 05:42] LABS: Albumin 2.9 g/dL (3.4-5.0); Calcium 8.3 mg/dL (8.5-10.1); Magnesium 2.2 mg/dL (1.6-2.6); Potassium 3.5 mmol/L (3.5-5.1)
[2022-07-25 05:48] LABS: BUN/Creatinine Ratio 34.3; Bilirubin, Total 0.4 mg/dL (0.2-1.0); Phosphorus 3.2 mg/dL (2.5-4.90)
[2022-07-25 08:00] VITALS: BP 130/63
[2022-07-25] MEDS ORDERED: POTASSIUM CHL 20MEQ/100ML 100 ML IV ONE (10:00)
[2022-07-25] MEDS: PANTOPRAZOLE 40 MG/10 ML VIAL INJ IV SCH (11:08)
[2022-07-25] MEDS: ENOXAPARIN SOD 30 MG/0.3 ML SYRINGE SC SCH (11:08)
[2022-07-25] MEDS: SODIUM CHLOR 0.9% PF (SALINE LOCK) 10ML VIAL/SYR IV SCH ×2 (11:09→23:58)
[2022-07-25 12:00] VITALS: BP 127/62
[2022-07-25 16:00] VITALS: BP 127/65
[2022-07-25] MEDS ORDERED: TPN PER PHARMACY IV NR ×7 (20:00)
[2022-07-25] MEDS: D5W/SOD CHLO 0.9% 1,000 ML IV SCH (20:13)
[2022-07-25] MEDS: clonazePAM 0.5 MG TAB PO PRN (21:09)
[2022-07-25 22:00] VITALS: BP 128/64
[2022-07-26] MEDS: HYDROcodone-ACET 5/325MG TAB PO PRN (00:02)
[2022-07-26] MEDS: ACCU-CHEK COMFORT CURVE STRIP VI SCH ×4 (00:18→18:01)
[2022-07-26 05:00] VITALS: BP 113/59
[2022-07-26] MEDS: InsuLIN REG 1unit/0.01ml Soln (100units/ml) SC SCH ×4 (05:19→18:00)
[2022-07-26] MEDS: METOCLOPRAMIDE HCL 5MG/ml INJ 2ml VIAL IV SCH ×3 (05:19→21:19)
[2022-07-26 06:04] LABS: Albumin 2.9 g/dL (3.4-5.0); Calcium 8.2 mg/dL (8.5-10.1); Magnesium 2.1 mg/dL (1.6-2.6); Potassium 3.5 mmol/L (3.5-5.1)
[2022-07-26 06:09] LABS: BUN/Creatinine Ratio 41.2; Bilirubin, Total 0.4 mg/dL (0.2-1.0); Phosphorus 2.6 mg/dL (2.5-4.90)
[2022-07-26 09:00] VITALS: BP 124/56
[2022-07-26] MEDS ORDERED: POTASSIUM PHOSPHATE 44 MEQ in D5W 5% 250 ML IV ONE (09:30)
[2022-07-26] MEDS: PANTOPRAZOLE 40 MG/10 ML VIAL INJ IV SCH (10:36)
[2022-07-26] MEDS: SODIUM CHLOR 0.9% PF (SALINE LOCK) 10ML VIAL/SYR IV SCH ×2 (10:37→22:05)
[2022-07-26] MEDS: ENOXAPARIN SOD 30 MG/0.3 ML SYRINGE SC SCH ×2 (10:37→10:40)
[2022-07-26] MEDS: MORPHINE SULFATE INJ 2 MG/ml SYRG IV PRN ×2 (12:47→19:34)
[2022-07-26 13:00] VITALS: BP 125/61
[2022-07-26 17:00] VITALS: BP 118/57
[2022-07-26] MEDS: D5W/SOD CHLO 0.9% 1,000 ML IV SCH (20:00)
[2022-07-26] MEDS ORDERED: TPN PER PHARMACY IV NR ×7 (20:00)
[2022-07-26] MEDS: clonazePAM 0.5 MG TAB PO PRN (21:51)
[2022-07-26 22:00] VITALS: BP 106/56
[2022-07-27] MEDS: ACCU-CHEK COMFORT CURVE STRIP VI SCH ×3 (00:13→12:03)
[2022-07-27] MEDS: ONDANSETRON HCL 4 MG/2 ML VIAL IV PRN ×2 (02:57→07:49)
[2022-07-27 05:00] VITALS: BP 94/64
[2022-07-27] MEDS: MORPHINE SULFATE INJ 2 MG/ml SYRG IV PRN (05:31)
[2022-07-27] MEDS: InsuLIN REG 1unit/0.01ml Soln (100units/ml) SC SCH ×3 (05:37→12:00)
[2022-07-27] MEDS: METOCLOPRAMIDE HCL 5MG/ml INJ 2ml VIAL IV SCH (06:26)
[2022-07-27] MEDS ORDERED: PROMETHAZINE HCL 25 MG/ML 1ML IV PRN (08:45)
[2022-07-27] MEDS: SODIUM CHLOR 0.9% PF (SALINE LOCK) 10ML VIAL/SYR IV SCH (09:23)
[2022-07-27] MEDS: PANTOPRAZOLE 40 MG/10 ML VIAL INJ IV SCH (09:23)
[2022-07-27] MEDS ORDERED: PROMETHAZINE HCL 25 MG/ML 1ML IV ONE (11:00)
[2022-07-27 11:22] LABS: Potassium 4.2 mmol/L (3.5-5.1)
[2022-07-27 11:23] LABS: Albumin 3.4 g/dL (3.4-5.0); BUN/Creatinine Ratio 26.9; Bilirubin, Total 0.5 mg/dL (0.2-1.0); Calcium 9.4 mg/dL (8.5-10.1); Magnesium 2.3 mg/dL (1.6-2.6); Phosphorus 4.5 mg/dL (2.5-4.90); Total Protein 7.6 g/dL (6.4-8.2)
[2022-07-27 11:56] VITALS: BP 148/68
== END 2022-07-27 14:19 | DRG 388 ==
LOC: EDBD 04:11 → ER 04:11 → OVERFLOW 13:39 → EAST 23:33
PROVIDERS: ADMIT Registered Nurse; ATTEND Family Medicine
PROC: 05HY33Z Insertion of Infusion Device into Upper Vein, Percutaneous Approach (ICD-10-PCS; principal; 2022-07-22)
PROC: B54MZZA Ultrasonography of Right Upper Extremity Veins, Guidance (ICD-10-PCS; 2022-07-22)
DX: K56.609 Unspecified intestinal obstruction, unspecified as to partial versus complete obstruction (principal); E43 Unspecified severe protein-calorie malnutrition; Z68.1 Body mass index [BMI] 19.9 or less, adult; I25.10 Atherosclerotic heart disease of native coronary artery without angina pectoris; M19.90 Unspecified osteoarthritis, unspecified site; Z20.822 Contact with and (suspected) exposure to COVID-19; E11.9 Type 2 diabetes mellitus without complications; I10 Essential (primary) hypertension; Z93.3 Colostomy status; Z90.710 Acquired absence of both cervix and uterus; Z90.49 Acquired absence of other specified parts of digestive tract; Z82.49 Family history of ischemic heart disease and other diseases of the circulatory system
CPT/HCPCS: 36415; 36569; 71045; 74176; 74250; 80053; 82150; 82962; 83036; 83690; 83735; 84100; 84478; 84484; 85025; 85610; 85730; 87081; 87426; 93005; 93971; 96361; 96365; 96375; 97163; C9113; G0378; J0696; J1815; J2405; J3480; J7042; J7060

== ENCOUNTER 2023-05-15 12:40 | Inpatient (IN) | payer OTHER, MEDICARE, MEDICAID ==
[~2023-05-15] VITALS: Ht 160 cm; Wt 36.4 kg
[2023-05-15 13:30] LABS: Basophils # (auto) 0 10 ^3/uL (0-0.2); Eosinophils # (auto) 0 10 ^3/uL (0-0.8); Lymphocytes # (auto) 1.3 10 ^3/uL (0.4-5.4); Monocytes # (auto) 0.5 10 ^3/uL (0-1.3); Neutrophils # (auto) 4.4 10 ^3/uL (1.6-8.6); Nucleated Red Blood Cells % 0.1 %; White Blood Cell 6.2 10^3/uL (4.4-10.8)
[2023-05-15 13:32] LABS: Basophils % (auto) 0.3 % (0.0-2.0); Eosinophils % (auto) 0.2 % (0.0-7.0); Hematocrit 32.5 % (36.0-46.0); Hemoglobin 10.1 g/dL (12.2-16.2); Lymphocytes % (auto) 20.7 % (10.0-50.0); Mean Corpuscular Hemoglobin 24.4 pg (28.0-32.0); Mean Corpuscular Hgb Conc. 31.1 g/dL (32.0-36.0); Mean Corpuscular Volume 78.5 fL (80.0-100.0); Monocytes % (auto) 7.5 % (0.0-12.0); Neutrophils % (auto) 71.3 % (37.0-80.0); Red Blood Cells 4.14 10^6/uL (4.0-5.20)
[2023-05-15 13:38] LABS: Red Cell Distribution Width 23.5 % (11.8-14.3)
[2023-05-15 13:42] LABS: Alanine Aminotransferase 22 U/L (7-40); Albumin 3.8 g/dL (3.2-4.8); Alkaline Phosphatase 201 U/L (46-116); Anion Gap 9 (5-15); Aspartate Aminotransferase 24 U/L (13-40); BUN/Creatinine Ratio 14.3 (10.0-20.0); Bilirubin, Total 0.5 mg/dL (0.2-1.0); Blood Urea Nitrogen 7 mg/dL (9-23); Carbon Dioxide 22 mmol/L (20-30); Chloride 111 mmol/L (98-107); Glucose 108 mg/dL (74-106); INR 2.4 (0.9-1.15); Partial Thromboplastin Time 37.1 SEC (24.5-34.5); Potassium 3.2 mmol/L (3.5-5.1); Prothrombin Time 23.8 sec (9.3-11.8); Sodium 142 mmol/L (136-145); Total Protein 7.1 g/dL (5.7-8.2)
[2023-05-15 16:24] VITALS: PULSE 80; RESP 20; O2SAT 96
[2023-05-15] MEDS ORDERED: ONDANSETRON HCL 4 MG/2 ML VIAL IV ONE (16:30)
[2023-05-15] MEDS ORDERED: MORPHINE SULFATE INJ 2 MG/ml SYRG IV ONE (16:30)
[2023-05-15] MEDS ORDERED: POTASSIUM EFFERVESENT TAB 25 MEQ PO ONE (17:00)
[2023-05-15 17:13] LABS: Urine Bacteria NONE SEEN /hpf (None Seen); Urine Blood Negative /uL (Negative); Urine Clarity Clear (Clear); Urine Color Yellow (Yellow); Urine Hyaline Cast FEW /lpf (0 - 2); Urine Mucus FEW (None Seen); Urine Protein, UAD TRACE (Negative); Urine Urobilinogen Normal (Negative); Urine WBC <1 /hpf (0 - 5); Urine pH 5.5 (5.0-8.0)
[2023-05-15] MEDS ORDERED: ACETAMINOPHEN 325 MG TAB PO PRN (17:30)
[2023-05-15] MEDS: SODIUM CHLORIDE 0.9% 1,000 ML IV SCH (17:30)
[2023-05-15 19:45] VITALS: PULSE 76; RESP 18; O2SAT 96
[2023-05-15] MEDS: HYDROcodone-ACET 5/325MG TAB PO PRN (20:05)
[2023-05-16] MEDS: HYDROcodone-ACET 5/325MG TAB PO PRN ×5 (00:01→18:16)
[2023-05-16 05:00] VITALS: BP 101/43; PULSE 68; RESP 16; TEMP 98; O2SAT 95
[2023-05-16 06:28] LABS: Basophils # (auto) 0 10 ^3/uL (0-0.2); Basophils % (auto) 0.3 % (0.0-2.0); Eosinophils # (auto) 0 10 ^3/uL (0-0.8); Mean Corpuscular Hgb Conc. 30.9 g/dL (32.0-36.0); Neutrophils # (auto) 3.7 10 ^3/uL (1.6-8.6); Nucleated Red Blood Cells % 0.1 %
[2023-05-16 06:30] LABS: Eosinophils % (auto) 0.6 % (0.0-7.0); Hematocrit 27.9 % (36.0-46.0); Hemoglobin 8.6 g/dL (12.2-16.2); Lymphocytes % (auto) 31.3 % (10.0-50.0); Mean Corpuscular Hemoglobin 24.5 pg (28.0-32.0); Mean Corpuscular Volume 79.3 fL (80.0-100.0); Monocytes # (auto) 0.6 10 ^3/uL (0-1.3); Monocytes % (auto) 10.1 % (0.0-12.0); Neutrophils % (auto) 57.7 % (37.0-80.0); Red Blood Cells 3.52 10^6/uL (4.0-5.20); Red Cell Distribution Width 23.3 % (11.8-14.3); White Blood Cell 6.3 10^3/uL (4.4-10.8)
[2023-05-16 06:43] LABS: Alanine Aminotransferase 17 U/L (7-40); Albumin 3.4 g/dL (3.2-4.8); Alkaline Phosphatase 176 U/L (46-116); Anion Gap 5 (5-15); Aspartate Aminotransferase 16 U/L (13-40); Bilirubin, Total 0.4 mg/dL (0.2-1.0); Blood Urea Nitrogen 6 mg/dL (9-23); Carbon Dioxide 24 mmol/L (20-30); Chloride 110 mmol/L (98-107); Glucose 99 mg/dL (74-106); Potassium 3.1 mmol/L (3.5-5.1); Sodium 139 mmol/L (136-145)
[2023-05-16 06:44] LABS: Total Protein 6.5 g/dL (5.7-8.2)
[2023-05-16] MEDS: SODIUM CHLORIDE 0.9% 1,000 ML IV SCH (06:50)
[2023-05-16 08:00] VITALS: RESP 16
[2023-05-16 09:00] VITALS: BP 110/48; PULSE 71; RESP 16; TEMP 98; O2SAT 94
[2023-05-16] MEDS ORDERED: POTASSIUM EFFERVESENT TAB 25 MEQ PO ONE (09:45)
[2023-05-16] MEDS ORDERED: ENOXAPARIN SOD 40 MG/0.4 ML SYRINGE SC SCH (10:00)
[2023-05-16] MEDS ORDERED: POTASSIUM CHL 20 Meq TABLET PO ONE (11:45)
[2023-05-16 13:00] VITALS: BP 102/47; PULSE 71; RESP 16; TEMP 97.6; O2SAT 93
[2023-05-16] MEDS ORDERED: BIOT5TAB3 PO (16:10)
[2023-05-16] MEDS ORDERED: CLON-853 PO (16:10)
[2023-05-16] MEDS ORDERED: HYDR-4798 PO (16:10)
[2023-05-16] MEDS ORDERED: CALC-312 PO (16:10)
[2023-05-16] MEDS ORDERED: TAMS0.4C36 PO (16:10)
[2023-05-16] MEDS ORDERED: FURO40TA4 PO (16:10)
[2023-05-16 17:00] VITALS: BP 106/51; PULSE 67; RESP 19; TEMP 97.9; O2SAT 95
[2023-05-16 20:00] VITALS: RESP 17
[2023-05-17] VITALS (7 sets, daily range): BP systolic 92–110; BP diastolic 45–64; PULSE 64–79; RESP 17–18; TEMP 97.8–98.3; O2SAT 94–97
[2023-05-17] MEDS: HYDROcodone-ACET 5/325MG TAB PO PRN ×4 (03:09→20:41)
[2023-05-17 07:10] LABS: Basophils # (auto) 0 10 ^3/uL (0-0.2); Eosinophils # (auto) 0 10 ^3/uL (0-0.8); Lymphocytes # (auto) 1.9 10 ^3/uL (0.4-5.4); Mean Corpuscular Hemoglobin 24.4 pg (28.0-32.0); Monocytes # (auto) 0.7 10 ^3/uL (0-1.3)
[2023-05-17 07:12] LABS: Basophils % (auto) 0.2 % (0.0-2.0); Eosinophils % (auto) 0.4 % (0.0-7.0); Hematocrit 30.8 % (36.0-46.0); Hemoglobin 9.5 g/dL (12.2-16.2); Lymphocytes % (auto) 22.8 % (10.0-50.0); Mean Corpuscular Hgb Conc. 30.9 g/dL (32.0-36.0); Mean Corpuscular Volume 78.9 fL (80.0-100.0); Neutrophils # (auto) 5.7 10 ^3/uL (1.6-8.6); Neutrophils % (auto) 68.6 % (37.0-80.0); Red Blood Cells 3.91 10^6/uL (4.0-5.20); White Blood Cell 8.3 10^3/uL (4.4-10.8)
[2023-05-17 07:21] LABS: Anion Gap 4 (5-15); Carbon Dioxide 24 mmol/L (20-30); Chloride 110 mmol/L (98-107); Potassium 3.9 mmol/L (3.5-5.1); Sodium 138 mmol/L (136-145)
[2023-05-17 07:22] LABS: Calcium 8.3 mg/dL (8.7-10.4)
[2023-05-17 07:27] LABS: Glucose 103 mg/dL (74-106)
[2023-05-17 07:36] LABS: BUN/Creatinine Ratio 11.6 (10.0-20.0); Blood Urea Nitrogen < 5 mg/dL (9-23); Red Cell Distribution Width 23.2 % (11.8-14.3)
[2023-05-17 09:05] LABS: Anisocytosis Slight; Hypochromia Slight; Platelet Estimate Adequate
[2023-05-17 09:06] LABS: Target Cell FEW
[2023-05-17] MEDS ORDERED: clonazePAM 0.5 MG TAB PO PRN (10:00)
[2023-05-18] MEDS: HYDROcodone-ACET 5/325MG TAB PO PRN ×2 (04:02→09:24)
[2023-05-18 05:00] VITALS: BP 110/54; PULSE 75; RESP 20; TEMP 97.8; O2SAT 95
[2023-05-18 08:25] VITALS: BP 110/54; PULSE 71; TEMP 97.6; O2SAT 94
[2023-05-18 12:20] VITALS: BP 109/51; PULSE 79; RESP 18; TEMP 97; O2SAT 93
== END 2023-05-18 16:00 | disposition hospice, home (50) | DRG 552 ==
LOC: ER 12:40 → EDBD 12:40 → EDUNIT# 17:25 → OVERFLOW 17:25 → CENTRAL 05-16 03:26
PROVIDERS: ADMIT Nurse Practitioner Family; ATTEND Internal Medicine
DX: M54.9 Dorsalgia, unspecified (principal); E44.0 Moderate protein-calorie malnutrition; Z68.1 Body mass index [BMI] 19.9 or less, adult; R62.7 Adult failure to thrive; I10 Essential (primary) hypertension; G89.4 Chronic pain syndrome; M81.0 Age-related osteoporosis without current pathological fracture; E87.6 Hypokalemia; Z90.710 Acquired absence of both cervix and uterus; Z93.3 Colostomy status; Z60.2 Problems related to living alone
CPT/HCPCS: 36415; 70450; 71045; 72125; 72131; 72192; 80048; 80053; 81001; 82270; 84484; 85025; 85610; 85730; 97110; 97116; 97163; 97530; G0378; J2405

== ENCOUNTER 2024-02-05 17:14 | Inpatient (IN) | payer MEDICARE, MEDICAID ==
[~2024-02-05] VITALS: Ht 152.4 cm; Wt 46.2 kg
[2024-02-05] MEDS: MORPHINE SULFATE 4 MG/ML SYR/VIAL IV ONE (01:55)
[2024-02-05] MEDS: PANTOPRAZOLE 40 MG/10 ML VIAL INJ IV ONE (01:55)
[~2024-02-05 17:14] MED LIST changes: +BIOT5TAB3 PO; +CALC-312 PO; +FURO40TA4 PO; +HYDR-4798 PO; +HYDR-4902 PO; +TAMS0.4C36 PO
[2024-02-05 18:07] LABS: Basophils # (auto) 0 10 ^3/uL (0-0.2); Basophils % (auto) 0.3 % (0.0-2.0); Eosinophils # (auto) 0 10 ^3/uL (0-0.8); Monocytes # (auto) 0.6 10 ^3/uL (0-1.3); White Blood Cell 10.1 10^3/uL (4.4-10.8)
[2024-02-05 18:09] LABS: Eosinophils % (auto) 0.5 % (0.0-7.0); Hematocrit 31.1 % (36.0-46.0); Hemoglobin 9.4 g/dL (12.2-16.2); Lymphocytes % (auto) 19.9 % (10.0-50.0); Mean Corpuscular Hemoglobin 19.9 pg (28.0-32.0); Mean Corpuscular Hgb Conc. 30.1 g/dL (32.0-36.0); Mean Corpuscular Volume 66.1 fL (80.0-100.0); Monocytes % (auto) 5.9 % (0.0-12.0); Neutrophils # (auto) 7.4 10 ^3/uL (1.6-8.6); Neutrophils % (auto) 73.4 % (37.0-80.0)
[2024-02-05 18:11] LABS: Red Cell Distribution Width 20.8 % (11.8-14.3)
[2024-02-05 18:26] LABS: Albumin 4.7 g/dL (3.2-4.8); Alkaline Phosphatase 221 U/L (46-116); Anion Gap 8 (5-15); Aspartate Aminotransferase 21 U/L (13-40); BUN/Creatinine Ratio 19.1 (10.0-20.0); Bilirubin, Total 0.4 mg/dL (0.2-1.0); Blood Urea Nitrogen 13 mg/dL (9-23); Calcium 9.7 mg/dL (8.7-10.4); Carbon Dioxide 22 mmol/L (20-30); Chloride 100 mmol/L (98-107); Glucose 110 mg/dL (74-106); Lipase 52 U/L (12-53); Potassium 4.5 mmol/L (3.5-5.1); Sodium 130 mmol/L (136-145); Total Protein 9.7 g/dL (5.7-8.2)
[2024-02-05] MEDS ORDERED: MORPHINE SULFATE INJ 2 MG/ml SYRG IV PRN (22:00)
[2024-02-05] MEDS ORDERED: NITROGLYCERIN 0.4 MG SL TAB SL PRN (22:00)
[2024-02-05] MEDS ORDERED: DOCUSATE SOD 100 MG CAP PO PRN (22:00)
[2024-02-05 22:49] LABS: % Iron Saturation 3.3 % (15-50)
[2024-02-06] MEDS: ONDANSETRON HCL 4 MG/2 ML VIAL IV ONE (01:55)
[2024-02-06] MEDS: SODIUM CHLORIDE 0.9% 1,000 ML IV SCH (02:22)
[2024-02-06] MEDS: MORPHINE SULFATE INJ 2 MG/ml SYRG IV PRN ×2 (02:33→21:20)
[2024-02-06] MEDS: ONDANSETRON HCL 4 MG/2 ML VIAL IV PRN (02:34)
[2024-02-06 04:05] VITALS: PULSE 86; RESP 11; O2SAT 96
[2024-02-06 04:32] LABS: Basophils # (auto) 0 10 ^3/uL (0-0.2); Eosinophils # (auto) 0 10 ^3/uL (0-0.8); Monocytes # (auto) 0.5 10 ^3/uL (0-1.3)
[2024-02-06 04:33] LABS: Basophils % (auto) 0.2 % (0.0-2.0); Hematocrit 28.4 % (36.0-46.0); Hemoglobin 8.7 g/dL (12.2-16.2); Lymphocytes # (auto) 0.8 10 ^3/uL (0.4-5.4); Lymphocytes % (auto) 9.5 % (10.0-50.0); Mean Corpuscular Hemoglobin 20.1 pg (28.0-32.0); Mean Corpuscular Hgb Conc. 30.7 g/dL (32.0-36.0); Mean Corpuscular Volume 65.5 fL (80.0-100.0); Monocytes % (auto) 5.4 % (0.0-12.0); Neutrophils # (auto) 7.5 10 ^3/uL (1.6-8.6); Neutrophils % (auto) 84.9 % (37.0-80.0); Nucleated Red Blood Cells % 0.1 %; Red Blood Cells 4.33 10^6/uL (4.0-5.20); White Blood Cell 8.8 10^3/uL (4.4-10.8)
[2024-02-06 04:35] LABS: Alanine Aminotransferase 21 U/L (7-40); Albumin 4.3 g/dL (3.2-4.8); Alkaline Phosphatase 197 U/L (46-116); Anion Gap 6 (5-15); Aspartate Aminotransferase 17 U/L (13-40); Bilirubin, Total 0.4 mg/dL (0.2-1.0); Blood Urea Nitrogen 20 mg/dL (9-23); Calcium 8.8 mg/dL (8.7-10.4); Carbon Dioxide 23 mmol/L (20-30); Chloride 100 mmol/L (98-107); Glucose 118 mg/dL (74-106); Potassium 4.7 mmol/L (3.5-5.1); Sodium 129 mmol/L (136-145); Total Protein 8.8 g/dL (5.7-8.2)
[2024-02-06 04:41] LABS: Red Cell Distribution Width 20.5 % (11.8-14.3)
[2024-02-06 05:52] LABS: Anisocytosis Slight; Hypochromia Marked; Platelet Estimate Increased; Stomatocytes Few; Target Cell FEW
[2024-02-06] MEDS: GASTROGRAFIN 120 ML SOL ONE (06:58)
[2024-02-06] MEDS: PANTOPRAZOLE 40 MG/10 ML VIAL INJ IV SCH (09:27)
[2024-02-06] MEDS: cefTRIAXone 1GM/50ML D5W 50 ML IV ONE (12:41)
[2024-02-06] MEDS ORDERED: SUVO1TAB2 PO (15:00)
[2024-02-06] MEDS ORDERED: FOLI-119 PO (15:01)
[2024-02-06] MEDS ORDERED: POTA-228 PO ×2 (15:06→15:08)
[2024-02-06] MEDS: metroNIDAZOLE 500MG/100ML 100 ML IV SCH (16:26)
[2024-02-06 16:32] VITALS: BP 114/47; PULSE 84; RESP 16; TEMP 97.9; O2SAT 99
[2024-02-06 20:00] VITALS: PULSE 96
[2024-02-06 22:00] VITALS: BP 107/51; PULSE 87; RESP 16; TEMP 98.5; O2SAT 93
[2024-02-07] VITALS (8 sets, daily range): BP systolic 101–119; BP diastolic 46–62; PULSE 83–90; RESP 16–20; TEMP 97.8–98.2; O2SAT 93–97
[2024-02-07] MEDS: cefTRIAXone 1GM/50ML D5W 50 ML IV SCH (09:00)
[2024-02-08] VITALS (8 sets, daily range): BP systolic 97–110; BP diastolic 50–65; PULSE 61–80; RESP 16–18; TEMP 97.9–98.2; O2SAT 93–97
[2024-02-09 01:00] VITALS: BP 104/55; PULSE 71; RESP 18; TEMP 98; O2SAT 94
[2024-02-09 08:00] VITALS: PULSE 70; PULSE 80; RESP 18; O2SAT 95
[2024-02-09 09:00] VITALS: BP 99/71; PULSE 78; RESP 12; TEMP 97.5; O2SAT 95
[2024-02-09 12:40] VITALS: BP 109/61; PULSE 78; RESP 14; TEMP 98; O2SAT 95
[2024-02-09 13:16] VITALS: TEMP 36.7
== END 2024-02-09 13:47 | disposition home or self-care (01) | DRG 389 ==
LOC: EDBD 17:14 → ER 17:14 → TELE 21:52 → TELE-WESTW 02-06 14:22
PROVIDERS: ADMIT Nurse Practitioner Family; ATTEND Family Medicine
PROC: 0D9670Z Drainage of Stomach with Drainage Device, Via Natural or Artificial Opening (ICD-10-PCS; principal; 2024-02-05)
DX: K56.699 Other intestinal obstruction unspecified as to partial versus complete obstruction (principal); E87.1 Hypo-osmolality and hyponatremia; D50.9 Iron deficiency anemia, unspecified; I10 Essential (primary) hypertension; G89.29 Other chronic pain; E86.0 Dehydration; Z93.3 Colostomy status; Z90.710 Acquired absence of both cervix and uterus; Z90.49 Acquired absence of other specified parts of digestive tract; Z83.79 Family history of other diseases of the digestive system; Z82.49 Family history of ischemic heart disease and other diseases of the circulatory system; Z83.3 Family history of diabetes mellitus
CPT/HCPCS: 36415; 74018; 74176; 74250; 80053; 83540; 83550; 83690; 85025; 96365; 96375; C9113; G0378; J2405; J3490

== ENCOUNTER 2024-06-14 13:40 | Inpatient (IN) | payer MEDICARE, MEDICAID ==
[~2024-06-14] VITALS: Ht 312.4 cm; Wt 42.0 kg
[~2024-06-14 13:40] MED LIST changes: +FOLI-119 PO; -HYDR-4072 PO; -HYDR-4798 PO; -LEVO500T31 PO; +POTA-228 PO; +SUVO1TAB2 PO; -TAMS0.4C36 PO; +TAMS0.4C39 PO
[2024-06-14] MEDS: SODIUM CHLORIDE 0.9% 500 ML IVB ONE (14:00)
[2024-06-14 14:05] LABS: Monocytes # (auto) 0.1 10 ^3/uL (0-1.3); Nucleated Red Blood Cells % 0.6 %; Platelet Count (auto) 301 10^3/uL (140-450)
[2024-06-14 14:06] LABS: Basophils # (auto) 0.1 10 ^3/uL (0-0.2); Basophils % (auto) 0.7 % (0.0-2.0); Eosinophils # (auto) 0 10 ^3/uL (0-0.8); Eosinophils % (auto) 0.5 % (0.0-7.0); Hematocrit 34.2 % (36.0-46.0); Hemoglobin 9.8 g/dL (12.2-16.2); Lymphocytes # (auto) 1.4 10 ^3/uL (0.4-5.4); Lymphocytes % (auto) 18.1 % (10.0-50.0); Mean Corpuscular Hemoglobin 21.6 pg (28.0-32.0); Mean Corpuscular Hgb Conc. 28.7 g/dL (32.0-36.0); Monocytes % (auto) 0.9 % (0.0-12.0); Neutrophils # (auto) 6.1 10 ^3/uL (1.6-8.6); Neutrophils % (auto) 79.8 % (37.0-80.0); Red Blood Cells 4.56 10^6/uL (4.0-5.20); White Blood Cell 7.7 10^3/uL (4.4-10.8)
--- NOTE | 2024-06-14 14:11 | ED.PDOC ---
GI ASSESSMENT HPI Comments 74 y.o female with PMH of bowel disease, crohn's, HTN, osteoporosis, anemia, thyroid disease, presents to the ED via EMS for a chief complaint of abdominal pain s/p iron infusion today. EMS reports patient was at a facility receiving her infusion, began having stabbing diffused abdominal pain. Per staff, patient had similar symptom last week with the infusion, this time they gave her 25mg of Benadryl assuming it was an allergic reaction but pain persisted. EMS administrated 100mcg of Fentanyl IV. Patient is on 4 liters of oxygen saturating at 94-96%, was taken off oxygen b riefly and dropped to 90-91% RA. Patient denies any other symptoms or pain. Chief Complaint: Abdominal Pain Time Seen by MD: 13:45 Primary Care Provider: BELÉN Reviewed Notes: Nurses Notes, Contract Agent Notes, Medications, Allergies Allergies: Coded Allergies: NO KNOWN ALLERGIES (Unverified , 07/19/22) Home Meds Reported Medications Potassium Chloride (Potassium Chloride ER) 10 Meq Tab, 10 MEQ PO BID, TAB 02/06/24 Folic Acid (Folic Acid) 1 Mg Tab, 1 TAB PO DAILY 02/06/24 Suvorexant (Belsomra) 10 Mg Tab, 1 TAB PO QHSP for INSOMNIA MDD 10 MG 02/06/24 Biotin (Vitamin H) (BIOTIN) 5 Mg Tab, 5 MG PO DAILY, TAB 05/16/23 Calcium (Calcium) 500 Mg Tab, 500 MG PO DAILY, TAB 05/16/23 Furosemide (Furosemide) 40 Mg Tab, 40 MG PO QAM 05/16/23 Clonazepam (Clonazepam) 1 Mg Tab, 0.5 TAB PO BIDPRN, #30 TAB 05/16/23 Hydrocodone-Acetaminophen (Hydrocodone Bitartrate/AC 5-325 mg) 1 Tab Tab, 1 TAB PO, TAB 05/16/23 Tamsulosin Hcl (Tamsulosin Hcl) 0.4 Mg Cap, 1 CAP PO DAILY 05/15/23 Information Source: Patient, Emergency Med Personnel Mode of Arrival: EMS Timing: Minutes Duration: Since onset Prehospital treatment: Pain Meds (100mcg fentanyl IV ) Quality: Stabbing Vomitus: None Stool: Normal Severity: Moderate Recent: Iron Supplements Recent Hx of: None Pain Location: Diffuse Modifying Factors: Nothing Associated sign and symptoms: Abdominal Pain Past Medical History PAST MEDICAL HISTORY: HTN, Thyroid Surgical History: BTL, Hysterectomy 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 Family History Family History: Reviewed,noncontributory to illness Social History Smoker: Non-Smoker Alcohol: Denies ETOH Use Drugs: Denies Drug Use Lives In: Home Constitutional: denies: chills, diaphoresis, fatigue, fever, malaise, sweats, weakness, others EENTM: denies: blurred vision, double vision, ear bleeding, ear discharge, ear drainage, ear pain, ear ringing, eye pain, eye redness, hearing loss, mouth pain, mouth swelling, nasal discharge, nose bleeding, nose congestion, nose pain, photophobia, tearing, throat pain, throat swelling, voice changes, others Respiratory: denies: cough, hemoptysis, orthopnea, SOB at rest, shortness of breath, SOB with excertion, stridor, wheezing, others Cardiovascular: denies: chest pain, dizzy spells, diaphoresis, Dyspnea on exertion, edema, irregular heart beat, left arm pain, lightheadedness, palpitations, PND, syncope, others Gastrointestinal: reports: abdominal pain; denies: abdomen distended, blood streaked bowels, constipated, diarrhea, dysphagia, difficulty swallowing, hematemesis, melena, nausea, poor appetite, poor fluid intake, rectal bleeding, rectal pain, vomiting, others Genitourinary: denies: abnormal vagina bleeding, burning, dyspareunia, dysuria, flank pain, frequency, hematuria, incontinence, pain, , vagina discharge, urgency, others Neurological: denies: dizziness, fainting, headache, left sided numbness, left sided weakness, numbness, paresthesia, pre-existing deficit, right sided numbness, right sided weakness, seizure, speech problems, tingling, tremors, weakness, others Musculoskeletal: denies: back pain, gout, joint pain, joint swelling, muscle pain, muscle stiffness, neck pain, others Integumetry: denies: bruises, change in color, change in hair/nails, dryness, laceration, lesions, lumps, rash, wounds, others Allergic/Immunocompromised: denies: Difficulty Healing, Frequent Infections, Hives, Itching, others Hematologic/Lymphatic: denies: anemia, blood clots, easy bleeding, easy bruising, swollen glands, others Endocrine: denies: excessive hunger, excessive sweating, excessive thirst, excessive urination, flushing, intolerance to cold, intolerance to heat, unexplained weight gain, unexplained weight loss, others Psychiatric: denies: anxiety, bipolar disorder, depression, hopeless, panic disorder, schizophrenia, sleepless, suicidal, others All Other Systems: Reviewed and Negative Physical Exam General Appearance: Moderate Distress HEENT: Normal ENT Inspection, Pharynx Normal, TMs Normal Neck: Full Range of Motion, Non-Tender, Normal, Normal Inspection Respiratory: Chest Non-Tender, Lungs Clear, No Accessory Muscle Use, No Respiratory Distress, Normal Breath Sounds Cardiovascular: No Edema, No JVD, No Murmur, No Gallop, Normal Peripheral Pulses, Regular Rate/Rhythm Breast Exam: Deferred Gastrointestinal: Diffuse, No Organomegaly, No Pulsatile Mass, Normal Bowel Sounds, Soft, Tenderness Genitalia: Deferred Pelvic: Deferred Rectal: Deferred Extremities: No calf tenderness, Normal capillary refill, Normal inspection, Normal range of motion, Non-tender, No pedal edema Musculoskeletal : Apperance: Normal Neurologic: Alert, town marshal II-XII nml as Tested, Motor Weakness, Normal Affect, Normal Mood, No Sensory Deficits Cerebellar Function: Normal Reflexes: Normal Skin: Dry, Normal Color, Warm Lymphatic: No Adenopathy Was a procedure done? Was a procedure done?: No GI differential Dx Differential Diagnosis: Gastroenteritis, Inflammatory BD, Electrolyte Imbalance, Viral X-Ray, Labs, Meds, VS Vital Signs Date Time Temp Pulse Resp B/P (MAP) Pulse Ox O2 Delivery O2 Flow Rate FiO2 06/14/24 14:28 94 22 93 Nasal Cannula* 2 28 06/14/24 14:25 98.3 95 22 142/61 (88) 94 98.3 06/14/24 13:42 99.1 84 20 121/73 (89) 96 Lab Test 06/14/24 16:28 06/14/24 13:55 Range/Units Urine Color Light-yellow Yellow Urine Clarity Clear Clear Urine pH 5.0 5.0-9.0 Urine Specific [place] 1.011 1.001-1.035 Urine Protein 1+ H Negative Urine Ketones Negative Negative Urine Blood Trace H Negative /uL Urine Nitrite Negative Negative Urine Bilirubin Negative Negative Urine Urobilinogen Normal Negative mg/dL Urine Leukocyte Esterase Negative Negative /uL Urine RBC 2 0 - 4 /hpf Urine WBC 3 0 - 5 /hpf Urine Squamous Epithelial Cells Few <5 /hpf Urine Bacteria Few H None Seen /hpf Urine Mucus Few None Seen Urine Glucose Normal Normal mg/dL White Blood Count 7.7 4.4-10.8 10^3/uL Red Blood Count 4.56 4.0-5.20 10^6/uL Hemoglobin 9.8 L 12.2-16.2 g/dL Hematocrit 34.2 L 36.0-46.0 % Mean Corpuscular Volume 75.0 L 80.0-100.0 fL Mean Corpuscular Hemoglobin 21.6 L 28.0-32.0 pg Mean Corpuscular Hemoglobin Concent 28.7 L 32.0-36.0 g/dL Red Cell Distribution Width 23.0 H 11.8-14.3 % Platelet Count 301 140-450 10^3/uL Mean Platelet Volume 6.9 6.9-10.8 fL Neutrophils (%) (Auto) 79.8 37.0-80.0 % Lymphocytes (%) (Auto) 18.1 10.0-50.0 % Monocytes (%) (Auto) 0.9 0.0-12.0 % Eosinophils (%) (Auto) 0.5 0.0-7.0 % Basophils (%) (Auto) 0.7 0.0-2.0 % Neutrophils # (Auto) 6.1 1.6-8.6 10 ^3/uL Lymphocytes # (Auto) 1.4 0.4-5.4 10 ^3/uL Monocytes # (Auto) 0.1 0-1.3 10 ^3/uL Eosinophils # (Auto) 0 0-0.8 10 ^3/uL Basophils # (Auto) 0.1 0-0.2 10 ^3/uL Nucleated Red Blood Cells 0.6 % Sodium Level 141 136-145 mmol/L Potassium Level 4.1 3.5-5.1 mmol/L Chloride Level 114 H 98-107 mmol/L Carbon Dioxide Level 19 L 20-31 mmol/L Anion Gap 8 5-15 Blood Urea Nitrogen 8 L 9-23 mg/dL Creatinine 0.56 0.550-1.02 mg/dL Glomerular Filtration Rate Calc 96 >90 mL/min BUN/Creatinine Ratio 14.3 10.0-20.0 Serum Glucose 99 74-106 mg/dL Calcium Level 9.2 8.7-10.4 mg/dL Total Bilirubin 0.4 0.2-1.0 mg/dL Aspartate Amino Transferase (AST) 32 13-40 U/L Alanine Aminotransferase (ALT) 36 7-40 U/L Alkaline Phosphatase 187 H 46-116 U/L Total Protein 7.7 5.7-8.2 g/dL Albumin 4.2 3.2-4.8 g/dL Current Medications Medications (Trade) Dose Ordered Sig/Catrachita Route Start Time Stop Time Status Last Admin Sodium Chloride 500 ml @ 500 mls/hr Q1H ONCE IVB 06/14/24 14:00 06/14/24 14:59 DC 06/14/24 14:00 Lorazepam (Ativan Inj) 1 mg ONCE ONCE IV 06/14/24 14:00 06/14/24 14:01 DC 06/14/24 14:46 Exam: CT CT AB PEL WO CON-NO ORAL OR IV IMPRESSION: 1. Limited noncontrast CT of the abdomen pelvis. No evidence of bowel obstruction. Diffuse bowel wall thickening could be related to enteritis. If concern persists consider further evaluation with CT of the abdomen pelvis with oral and IV contrast. At this time the CBC shows anemia with a hemoglobin of 9.8 hematocrit of 34.2 The chemistry panel is within normal limits The urine test is negative The patient is being admitted to the hospitalist The patient was given Ativan 1 mg IV push The patient was given normal saline at a 500 cc bolus. The patient continues to have tremors and seems to be having some more pain to the abdominal area. Images Reviewed?: Images reviewed and evaluated by me Time of 1ST Reevaluation: 14:04 Reevaluation 1ST: Unchanged Patient Education/Counseling: Diagnosis, Treatment, Prognosis Family Education/Counseling: No Family Present Departure 1 Departure Time of Disposition: 17:05 Impression: Primary Impression: Intractable abdominal pain Additional Impressions: Severe anemia Enteritis Disposition: 09 ADMITTED INPATIENT Admit to: Med Surg Condition: Fair Critical Care Note Critical Care Time?: No Stability Stability form required: Yes Unstable for transfer: Telemetry monitoring (Telemetry monitoring required), ED Physician Assesment (Clinical assesment) I personally scribed for KATHERINE FRYE MD ([email or web address]) on 06/14/24 at 14:11. Electronically submitted by Letitia Ventura ([facility]). I personally scribed for KATHERINE FRYE MD ([email or web address]) on 06/14/24 at 15:36. Electronically submitted by Letitia Ventura ([facility]). KATHERINE FRYE MD Jun 14, 2024 14:11
[2024-06-14 14:18] LABS: Alanine Aminotransferase 36 U/L (7-40); Albumin 4.2 g/dL (3.2-4.8); Alkaline Phosphatase 187 U/L (46-116); Anion Gap 8 (5-15); Aspartate Aminotransferase 32 U/L (13-40); BUN/Creatinine Ratio 14.3 (10.0-20.0); Blood Urea Nitrogen 8 mg/dL (9-23); Calcium 9.2 mg/dL (8.7-10.4); Carbon Dioxide 19 mmol/L (20-31); Chloride 114 mmol/L (98-107); Glucose 99 mg/dL (74-106); Potassium 4.1 mmol/L (3.5-5.1); Sodium 141 mmol/L (136-145)
[2024-06-14 14:19] LABS: Bilirubin, Total 0.4 mg/dL (0.2-1.0); Total Protein 7.7 g/dL (5.7-8.2)
[2024-06-14 14:28] VITALS: PULSE 94; RESP 22; O2SAT 93
[2024-06-14] MEDS: LORazepam 2MG/ML-1ML VIAL IV ONE (14:46)
--- NOTE | 2024-06-14 15:30 | DVH ---
Exam: CT CT AB PEL WO CON-NO ORAL OR IV History: pain Comparison Study: CT CT AB PEL WO CON-NO ORAL OR IV on DOS: 02/05/24, CT ABD PELVIS WO CONTRAST on DO S: 07/19/22, PL2CT on DOS: 01/13/22, ECIDC on DOS: 10/25/21 Technique: Multidetector spiral CT of the abdomen and pelvis was performed from lung bases to pubic symphysis. Imaging was performed without IV contrast. Axial, coronal and sagittal multiplanar reform ats were obtained from the axial data set by the technologist. Radiation dose : Abdomen/Pelvis: CTDIvol 6.21 mGy, DLP 306.62 mGy*cm. Findings: Evaluation of solid organs is limited due to lack of intravenous contrast use. Lung Bases: No acute or significant lung base finding. Normal heart size. No pleural or pericardial effusion. Liver: The liver is normal in size. No focal lesions. Gallbladder and biliary Tree: Unremarkable Spleen: Unremarkable Pancreas: The pancreas is grossly normal in appearance. Adrenal Glands: Unremarkable Kidneys: Kidneys are grossly normal without calculi or hydronephrosis. Bladder: Grossly unremarkable for degree of distention. Bowel: The stomach is grossly normal in appearance. There are postsurgical changes in the bowel with a left lower quadrant colostomy. There is diffuse bowel wall thickening. No dilated loops of bowel T he appendix is not visualized; however, no secondary findings of acute appendicitis identified. Ascites: Absent Lymphadenopathy: No mesenteric, retroperitoneal or periportal lymphadenopathy. Abdominal wall and Mesentery: Unremarkable. Vasculature: The visualized abdominal aorta is normal in size and caliber. There is extensive athero sclerotic calcification of the aorta and its branches. Evaluation of abdominal and pelvic vessels is limited due to lack of intravenous contrast. Pelvic Organs: Unremarkable Musculoskeletal: Rotoscoliosis with associated multi level degenerative disease. IMPRESSION: 1. Limited noncontrast CT of the abdomen pelvis. No evidence of bowel obstruction. Diffuse bowel wall thickening could be related to enteritis. If concern persists consider further evaluation with CT o f the abdomen pelvis with oral and IV contrast. Radiation optimization: All CT scans at this facility use at least one of these dose optimization marcela hniques: Automated exposure control mA and/or kV adjustment per patient size (includes targeted exams where dose is matched to clinical indication) or iterative reconstruction. HS:Y
[2024-06-14 16:59] LABS: Urine Bacteria FEW /hpf (None Seen); Urine Blood TRACE /uL (Negative); Urine Clarity Clear (Clear); Urine Color Light-Yellow (Yellow); Urine Mucus FEW (None Seen); Urine Protein, UAD 1+ (Negative); Urine Specific Gravity 1.011 (1.001-1.035); Urine Urobilinogen Normal (Negative); Urine WBC 3 /hpf (0 - 5)
[2024-06-14] MEDS ORDERED: NITROGLYCERIN 0.4 MG SL TAB SL PRN (20:45)
[2024-06-14] MEDS ORDERED: MORPHINE SULFATE INJ 2 MG/ml SYRG IV PRN (20:45)
[2024-06-14] MEDS ORDERED: ACETAMINOPHEN 325 MG TAB PO PRN (20:45)
[2024-06-14] MEDS ORDERED: ONDANSETRON HCL 4 MG/2 ML VIAL IV PRN (20:45)
--- NOTE | 2024-06-14 22:40 | DVHHPRES ---
History of Present Illness Resident Creating Document: DIONNA NEWMAN RESIDENT History of Present Illness This is a 74-year-old female with PMH of crohn's disease with s/p left ileostomy, HTN, osteoporosis, anemia, thyroid disease, presented to the ED via EMS for a chief complaint of abdominal pain and shortness of breath s/p iron infusion today. EMS reports patient was at a facility receiving her infusion, began having stabbing diffuse abdominal pain. Per staff, patient had similar symptom last week with the infusion, this time they gave her 25mg of Benadryl assuming it was an allergic reaction but pain persisted and also EMS administrated 100mcg of Fentanyl IV. On admission patient was hypotensive, tachycardic and desaturating to 89% and put the patient on 4 L oxygen with saturation 94-96%. The patient denies any allergic rash, chest pain, dizziness, diaphoresis, nausea, vomiting or any change in bowel and bladder habit. The patient was admitted in [facility] on January, with a diagnosis of partial small- bowel obstruction and was managed by conservative medical management. Past Medical History Crohn's disease with s/p left ileostomy, HTN, osteoporosis, anemia, thyroid disease Past Surgical History Left Ileostomy Smoke: No ALCOHOL: none Drugs: None Lives: Alone Past Social History Nonsmoker, nonalcoholic and never tried any drugs. Lives alone and has a caregiver Review of Systems Constitutional: No: Fever, Chills, Sweats, Weakness, Malaise, Other Eyes: No: Pain, Vision change, Conjunctivae inflammation, Eyelid inflammation, Other, Redness ENT: No: Ear pain, Ear discharge, Nose pain, Nose discharge, Nose congestion, Mouth pain, Mouth swelling, Throat pain, Throat swelling, Other Respiratory: Shortness of breath; No: Cough, Dry, SOB with excertion, Wheezing, Hemoptysis, Pleuritic Pain, Sputum, Wheezing, Other Cardiovascular: No: Chest Pain, Palpitations, Orthopnea, Paroxysmal Noc. Dyspnea, Edema, Lt Headedness, Other Gastrointestinal: Abdominal Pain; No: Nausea, Vomiting, Diarrhea, Constipation, Melena, Hematochezia, Other Genitourinary: No Dysuria, No Frequency, No Incontinence, No Hematuria, No Retention, No Other Musculoskeletal: No: other, neck pain, shoulder pain, arm pain, back pain, hand pain, leg pain, foot pain Skin: No: Rash, Lesions, Jaundice, Bruising, Other Neurological: No: Weakness, Numbness, Incoordination, Change in speech, Confusion, Seizures, Other Allergies: Coded Allergies: NO KNOWN ALLERGIES (Unverified , 07/19/22) Medications Current Medications Medications Dose Ordered Sig/Catrachita Route Start Time Stop Time Status Last Admin Dose Admin Acetaminophen 325 mg Q4HP PRN PO 06/14/24 20:45 Acetaminophen/ Hydrocodone Bitart 1 tab Q4HP PRN PO 06/14/24 20:45 Ondansetron HCl 4 mg Q4HP PRN IV 06/14/24 20:45 Nitroglycerin 0.4 mg Q5MINP PRN SL 06/14/24 20:45 Morphine Sulfate 2 mg Q30M PRN IV 06/14/24 20:45 Sodium Chloride 1,000 ml @ 75 mls/hr [id number] IV 06/14/24 22:30 Pantoprazole Sodium 40 mg DAILY IV 06/15/24 10:00 Ceftriaxone Sodium 50 ml @ 100 mls/hr DAILY@2100 IV 06/14/24 23:00 Metronidazole 100 ml @ 100 mls/hr Q8HR IV 06/14/24 23:00 Exam Vital Signs Vital Signs Date Time Temp Pulse Resp B/P (MAP) Pulse Ox O2 Delivery O2 Flow Rate FiO2 06/14/24 21:30 96 12 100/45 (63) 92 06/14/24 19:50 Nasal Cannula* 2 28 06/14/24 14:25 98.3 98.3 General Appearance: Alert, Oriented X3, mild distress HEENT: Atraumatic, PERRLA, EOMI, Mucous membr. moist/pink Respiratory: Clear to auscultation, Normal air movement Cardiovascular: Regular rate, Normal S1, Normal S2, No murmurs Abdominal: Normal bowel sounds, No hepatospenomegaly, No masses, Other (Abdomen is normal in shape, flanks are not full and tenderness present in the epigastric and umbilical region) Extremities: No clubbing, No cyanosis, No edema, Normal pulses, No tenderness/swelling Skin: No rashes, No breakdown, No significant lesion Neuro: Normal speech, Strength at 5/5 X4 ext, Normal tone, Sensation intact Psych/Mental Status: Mental status NL, Mood NL Labs/Xrays Labs Test 06/14/24 16:28 06/14/24 13:55 Range/Units Urine Color Light-yellow Yellow Urine Clarity Clear Clear Urine pH 5.0 5.0-9.0 Urine Specific [place] 1.011 1.001-1.035 Urine Protein 1+ H Negative Urine Ketones Negative Negative Urine Blood Trace H Negative /uL Urine Nitrite Negative Negative Urine Bilirubin Negative Negative Urine Urobilinogen Normal Negative mg/dL Urine Leukocyte Esterase Negative Negative /uL Urine RBC 2 0 - 4 /hpf Urine WBC 3 0 - 5 /hpf Urine Squamous Epithelial Cells Few <5 /hpf Urine Bacteria Few H None Seen /hpf Urine Mucus Few None Seen Urine Glucose Normal Normal mg/dL White Blood Count 7.7 4.4-10.8 10^3/uL Red Blood Count 4.56 4.0-5.20 10^6/uL Hemoglobin 9.8 L 12.2-16.2 g/dL Hematocrit 34.2 L 36.0-46.0 % Mean Corpuscular Volume 75.0 L 80.0-100.0 fL Mean Corpuscular Hemoglobin 21.6 L 28.0-32.0 pg Mean Corpuscular Hemoglobin Concent 28.7 L 32.0-36.0 g/dL Red Cell Distribution Width 23.0 H 11.8-14.3 % Platelet Count 301 140-450 10^3/uL Mean Platelet Volume 6.9 6.9-10.8 fL Neutrophils (%) (Auto) 79.8 37.0-80.0 % Lymphocytes (%) (Auto) 18.1 10.0-50.0 % Monocytes (%) (Auto) 0.9 0.0-12.0 % Eosinophils (%) (Auto) 0.5 0.0-7.0 % Basophils (%) (Auto) 0.7 0.0-2.0 % Neutrophils # (Auto) 6.1 1.6-8.6 10 ^3/uL Lymphocytes # (Auto) 1.4 0.4-5.4 10 ^3/uL Monocytes # (Auto) 0.1 0-1.3 10 ^3/uL Eosinophils # (Auto) 0 0-0.8 10 ^3/uL Basophils # (Auto) 0.1 0-0.2 10 ^3/uL Nucleated Red Blood Cells 0.6 % Sodium Level 141 136-145 mmol/L Potassium Level 4.1 3.5-5.1 mmol/L Chloride Level 114 H 98-107 mmol/L Carbon Dioxide Level 19 L 20-31 mmol/L Anion Gap 8 5-15 Blood Urea Nitrogen 8 L 9-23 mg/dL Creatinine 0.56 0.550-1.02 mg/dL Glomerular Filtration Rate Calc 96 >90 mL/min BUN/Creatinine Ratio 14.3 10.0-20.0 Serum Glucose 99 74-106 mg/dL Calcium Level 9.2 8.7-10.4 mg/dL Total Bilirubin 0.4 0.2-1.0 mg/dL Aspartate Amino Transferase (AST) 32 13-40 U/L Alanine Aminotransferase (ALT) 36 7-40 U/L Alkaline Phosphatase 187 H 46-116 U/L Total Protein 7.7 5.7-8.2 g/dL Albumin 4.2 3.2-4.8 g/dL Assessment/Plan Assessment/Plan Assessment and plan: # Intractable abdominal pain likely due to an allergic reaction from the Iron Infusion. - IV normal saline 500 mL bolus followed by normal saline at 75 mL/hour - CT abdomen pelvis revealed diffuse thickening of the bowel wall possible enteritis. - IV ceftriaxone 1 g daily and IV metronidazole 500 mg 8 hourly. - Clear liquid diet - Adams 5/325 mg q.4 p.r.n. - IV morphine was not given due to hypotension - IV ondansetron 4 mg q.4 p.r.n. # Hypotension - IV normal saline 500 mL bolus followed by normal saline at 75 mL/hour - currently on Levophed and transferred to ICU - monitor closely # Chronic microcytic hypochromic anemia likely due to iron deficiency. # History of Crohn's disease with status post left ileostomy # Vitamin D deficiency - Vitamin-D 34871 units Q 7D # Elevated alkaline phosphatase, likely due to bone pathology # PUD prophylaxis - Protonix 40 mg IV daily # DVT prophylaxis - Lovenox 40 mg sc daily Goal of care discussed with the patient for more than 20 minutes full code Plan of treatment discussed with Dr. Cuellar Plan discussed with: Patient, Other My Orders Orders - DIONNA NEWMAN RESIDENT Procedure Category Date Status Time Admit ADMIT 06/14/24 Transmitted 20:35 Oxygen Per Hour RT 06/14/24 Transmitted 20:35 Acetaminophen Tablet PHA 06/14/24 In Process (Tylenol Tablet) 20:45 Hydrocodone-Acet PHA 06/14/24 In Process 5/325mg Tab (Adams 20:45 Ondansetron Hcl PHA 06/14/24 In Process (Zofran) 20:45 Complete Blood Count LAB 06/15/24 Verified 04:00 Comprehensive LAB 06/15/24 Verified Metabolic Panel 04:00 Pt Request For Service PT 06/14/24 Logged 20:35 Clear Liq Diet DIET 06/15/24 Transmitted Breakfast Nitroglycerin PHA 06/14/24 In Process Sublingual (Ntrostat 20:45 Morphine Sulfate PHA 06/14/24 In Process Injection 20:45 Oxygen By Nasal RT 06/14/24 Transmitted Cannula 20:35 Stat Ekg For Chest OLIVER 06/14/24 In Process Pain 20:35 Notify Of Changes OLIVER 06/14/24 In Process From Base 20:35 Forming Fixer For OLIVER 06/14/24 In Process 24 Hours 20:35 Emergency Dysrhythmia OLIVER 06/14/24 In Process Protocol 20:35 Rhythm Strips Once OLIVER 06/14/24 In Process Every Shift 20:35 B-Type Natriuretic LAB 06/14/24 Logged Peptide 22:19 Chest Portable XY 06/14/24 Logged 22:19 Sodium Chloride 0.9% PHA 06/14/24 In Process 22:30 Pantoprazole PHA 06/15/24 In Process (Protonix) 10:00 Hemoglobin A1c LAB 06/14/24 Logged 22:19 Thyroid Stimulating LAB 06/14/24 Logged Hormone 22:19 Vitamin B12 LAB 06/14/24 Logged 22:19 Vitamin D, 25-Hydroxy LAB 06/14/24 Logged 22:19 Ceftriaxone 1gm/50ml PHA 06/14/24 In Process D5w (Rocephin) 23:00 Metronidazole PHA 06/14/24 In Process 500mg/100ml (Flagyl 23:00 Date of Service: Jun 14, 2024 Billing Provider: DONTA CUELLAR MD Common Visit Codes: [id number] INP/OBS CARE (HIGH) Secondary Visit Codes: [id number] CARE PLAN 30 MINUTES DIONNA NEWMAN RESIDENT Jun 14, 2024 22:40 DONTA CUELLAR MD Jun 18, 2024 09:25
[2024-06-14] MEDS: SODIUM CHLORIDE 0.9% 1,000 ML IV SCH (22:45)
--- NOTE | 2024-06-14 22:59 | DVH ---
CHEST RADIOGRAPH Indication:History of CHF Technique: Single frontal view of the chest was obtained Comparison: CHEST PORTABLE on DOS: 07/22/22, CHEST PORTABLE on DOS: 07/22/22, CXRP on DOS: 07/22/22 FINDINGS: Lines and Tubes: None Lungs: Bilateral vascular prominence in the hilum. Pleura: No effusion. No pneumothorax. Cardiomediastinal contours: Mild cardiomegaly unchanged from 07/22/2022 Bones: No acute osseous abnormality. IMPRESSION: 1. Findings may represent congestive failure.
[2024-06-14] MEDS: cefTRIAXone 1GM/50ML D5W 50 ML IV SCH (23:20)
[2024-06-14] MEDS: metroNIDAZOLE 500MG/100ML 100 ML IV SCH (23:41)
[2024-06-15] VITALS (70 sets, daily range): BP systolic 83–116; BP diastolic 42–67; PULSE 66–85; RESP 8–26; TEMP 97.8–98.5; O2SAT 77–100
[2024-06-15] MEDS: CYANOCOBALAMIN (B-12) 1000 MCG/1 ML VIAL IM ONE (01:45)
[2024-06-15] MEDS: NOREPINEPHRINE 8 MG/250ML KIT 250 ML IV SCH (02:45)
[2024-06-15] MEDS: NOREPINEPHRINE 8 MG/250ML KIT 250 ML IV ONE (02:57)
[2024-06-15 04:25] LABS: Basophils # (auto) 0 10 ^3/uL (0-0.2); Eosinophils # (auto) 0 10 ^3/uL (0-0.8); Hemoglobin 7.5 g/dL (12.2-16.2); Lymphocytes # (auto) 2.1 10 ^3/uL (0.4-5.4); Neutrophils % (auto) 74.4 % (37.0-80.0)
[2024-06-15 04:27] LABS: Basophils % (auto) 0.4 % (0.0-2.0); Eosinophils % (auto) 0.3 % (0.0-7.0); Hematocrit 25.9 % (36.0-46.0); Lymphocytes % (auto) 16.9 % (10.0-50.0); Mean Corpuscular Hgb Conc. 29.1 g/dL (32.0-36.0); Mean Corpuscular Volume 72.1 fL (80.0-100.0); Neutrophils # (auto) 9.5 10 ^3/uL (1.6-8.6); Platelet Count (auto) 285 10^3/uL (140-450); Red Blood Cells 3.59 10^6/uL (4.0-5.20); White Blood Cell 12.7 10^3/uL (4.4-10.8)
[2024-06-15 04:46] LABS: Alanine Aminotransferase 37 U/L (7-40); Albumin 3.7 g/dL (3.2-4.8); Alkaline Phosphatase 142 U/L (46-116); Anion Gap 5 (5-15); Aspartate Aminotransferase 49 U/L (13-40); BUN/Creatinine Ratio 16.3 (10.0-20.0); Blood Urea Nitrogen 8 mg/dL (9-23); Calcium 8.7 mg/dL (8.7-10.4); Carbon Dioxide 21 mmol/L (20-31); Chloride 114 mmol/L (98-107); Glucose 101 mg/dL (74-106); Potassium 3.8 mmol/L (3.5-5.1); Sodium 140 mmol/L (136-145)
[2024-06-15 04:47] LABS: Bilirubin, Total 0.3 mg/dL (0.2-1.0); Total Protein 6.7 g/dL (5.7-8.2)
[2024-06-15] MEDS: HYDROcodone-ACET 5/325MG TAB PO PRN (04:48)
[2024-06-15 04:49] LABS: Free T3 2.21 pg/mL (2.3-4.2); Free T4 (Free Thyroxine) 0.96 ng/dL (0.89-1.76)
[2024-06-15] MEDS: ENOXAPARIN SOD 40 MG/0.4 ML SYRINGE SC SCH (10:00)
[2024-06-15] MEDS: PANTOPRAZOLE 40 MG/10 ML VIAL INJ IV SCH (10:56)
[2024-06-15] MEDS: ERGOCALCIFEROL 50,000 UNIT(1.25MG) CAP PO SCH (11:10)
[2024-06-15] MEDS: diphenhdrAMINE HCL 25 MG CAP PO PRN (11:53)
--- NOTE | 2024-06-15 13:35 | DVHPNRES ---
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 Foreman came to the hospital with a chief complaint of feeling sick including shortness of breath and abdominal pain after IV iron transfusion. At the facility where she was receiving IV transfusion, patient started having diffuse abdominal pain, where she was given Benadryl 25 mg and EMS was called. EMS gave pain medication fentanyl patient was brought to the hospital. Initial evaluation showed patient was hypotensive tachycardic desaturating at 89%, patient was admitted to ICU started on Levophed, IV fluid and antibiotics. PMH: Osteoporosis, severe iron-deficiency anemia, left ileostomy, history of small-bowel obstruction.. Patient seen and examined in ICU. Patient is off Levophed now. Continued on IV fluid initially, the which was discontinued. Patient is hemodynamically stable, patient was desatting to 88-89%, put her back on 2-3 L oxygen Via nasal cannula. Plan to do downgrade to telemetry. Review of system. Eyes: No Pain, No Vision change, No Conjunctivae inflammation, No Eyelid inflammation, No Other, No Redness ENT: No Ear pain, No Ear discharge, No Nose pain, No Nose discharge, No Nose congestion, No Mouth pain, No Mouth swelling, No Throat pain, No Throat swelling, No Other Cardiovascular: No Chest Pain, No Palpitations, No Orthopnea, No Paroxysmal Noc. Dyspnea, No Edema, No Lt Headedness, No Other Respiratory: No Cough, No Dry, No Shortness of breath, No SOB with excertion, No Wheezing, No Hemoptysis, No Pleuritic Pain, No Sputum, No Other Gastrointestinal: No Nausea, No Vomiting, Abdominal Pain, No Diarrhea, No Constipation, No Melena, No Hematochezia, No Other Genitourinary: No Dysuria, No Frequency, No Incontinence, No Hematuria, No Retention, No Other Musculoskeletal: No other, No neck pain, No shoulder pain, No arm pain, No back pain, No hand pain, No leg pain, No foot pain Skin: No Rash, No Lesions, No Jaundice, No Bruising, No Other Objective vital signs Vital Sign Date Time Temp Pulse Resp B/P (MAP) Pulse Ox O2 Delivery O2 Flow Rate FiO2 06/15/24 12:30 68 12 83/42 (56) 95 06/15/24 12:00 98.5 98.5 06/15/24 12:00 Room Air* 0 21 Total Intake and Output 06/14/24 06/14/24 06/15/24 15:00 23:00 07:00 Intake Total 793.25 ml Output Total 500 ml 350 ml Balance -500 ml 443.25 ml medications Current Medications Medications Dose Ordered Sig/Catrachita Route Start Time Stop Time Status Last Admin Dose Admin Acetaminophen 325 mg Q4HP PRN PO 06/14/24 20:45 Acetaminophen/ Hydrocodone Bitart 1 tab Q4HP PRN PO 06/14/24 20:45 06/15/24 08:52 1 TAB Ondansetron HCl 4 mg Q4HP PRN IV 06/14/24 20:45 Nitroglycerin 0.4 mg Q5MINP PRN SL 06/14/24 20:45 Morphine Sulfate 2 mg Q30M PRN IV 06/14/24 20:45 Pantoprazole Sodium 40 mg DAILY IV 06/15/24 10:00 06/15/24 10:56 40 MG Ceftriaxone Sodium 50 ml @ 100 mls/hr DAILY@2100 IV 06/14/24 23:00 06/14/24 23:20 100 MLS/HR Metronidazole 100 ml @ 100 mls/hr Q8HR IV 06/14/24 23:00 06/15/24 06:05 100 MLS/HR Ergocalciferol 50,000 unit Q7D PO 06/15/24 10:00 06/15/24 11:10 50,000 UNIT Enoxaparin Sodium 40 mg DAILY SC 06/15/24 10:00 Norepinephrine Bitartrate 250 ml @ 3.75 mls/hr Q24H IV 06/15/24 02:45 06/15/24 02:45 3.75 MLS/HR Diphenhydramine HCl 25 mg Q8HP PRN PO 06/15/24 09:45 06/15/24 11:53 25 MG Examination General Appearance: Cooperative. Well developed. Well nourished. NAD Head Exam: Normal inspection Neck Exam: Normal inspection. Non-tender. Normal alignment Pulmonary/Respiratory: Chest non-tender. Clear bilateral breath sounds Cardiovascular/Chest: Regular rate and rhythm. No murmurs. No JVD. Peripheral Pulses: 2+ Radial (R). 2+ Radial (L). 2+ Pedal (R). 2+ Pedal (L) Abdominal Exam: Normal bowel sounds. Soft. Abdominal tenderness over umbilical region, presence of ileostomy bag, no bleeding. No hepatospenomegaly. No masses Ankle Exam: Negative ankle edema Lower extremities: Negative lower extremity edema Neuro/Mental Status: A&O x4. Coherent Thoughts/Psych: Normal thought pattern. Appropriate mood and affect. Good judgement and insight Appearance: In no acute distress Skin Exam: Normal inspection. Normal color. Warm. Dry laboratory and microbiology Laboratory Tests 06/15/24 03:50 Test 06/15/24 03:50 Range/Units Serum Glucose 101 74-106 mg/dL Problem List/Assessment/Plan Problem List/Assessment/Plan # Intractable abdominal pain likely due to gastric enteritis. -discontinued IV fluids - CT abdomen pelvis revealed diffuse thickening of the bowel wall possible enteritis. - IV ceftriaxone 1 g daily and IV metronidazole 500 mg 8 hourly. - advanced diet regular - [place] 5/325 mg q.4 p.r.n. - IV morphine was not given due to hypotension - IV ondansetron 4 mg q.4 p.r.n. # Hypotension ? Infectious etiology -of Levophed., stable blood pressure. -continue IV antibiotic with ceftriaxone and metronidazole. # Chronic microcytic hypochromic anemia likely due to iron deficiency. -hold IV iron given intolerance. # status post left ileostomy, history of small-bowel obstruction. # Vitamin D deficiency - Vitamin-D 55150 units Q 7D # Elevated alkaline phosphatase, likely due to bone pathology # PUD prophylaxis - Protonix 40 mg IV daily # DVT prophylaxis - Lovenox 40 mg sc daily Goal of care discussed with the patient for more than 20 minutes full code Plan of treatment discussed with Dr. Griffin Plan discussed with: Patient, Other (RN) My Orders My Orders Orders - KEEGAN RETANA Procedure Category Date Status Time Diphenhdramine PHA 06/15/24 In Process Capsule (Benadryl 09:45 Regular Diet DIET 06/15/24 Transmitted Lunch KEEGAN RETANA RESIDENT Jun 15, 2024 13:35
[2024-06-15] MEDS: FUROSEMIDE 20 MG/2 ML VIAL IV ONE (17:15)
[2024-06-16] VITALS (9 sets, daily range): BP systolic 94–118; BP diastolic 45–77; PULSE 64–108; RESP 16–20; TEMP 97.4–98; O2SAT 92–96
[2024-06-16 07:45] LABS: Basophils # (auto) 0.1 10 ^3/uL (0-0.2); Eosinophils # (auto) 0.4 10 ^3/uL (0-0.8); Hemoglobin 8.6 g/dL (12.2-16.2); Neutrophils # (auto) 4.7 10 ^3/uL (1.6-8.6)
[2024-06-16 07:48] LABS: Basophils % (auto) 0.8 % (0.0-2.0); Eosinophils % (auto) 4.9 % (0.0-7.0); Lymphocytes % (auto) 25.2 % (10.0-50.0); Mean Corpuscular Hemoglobin 21.5 pg (28.0-32.0); Mean Corpuscular Hgb Conc. 29.6 g/dL (32.0-36.0); Mean Corpuscular Volume 72.8 fL (80.0-100.0); Monocytes # (auto) 0.7 10 ^3/uL (0-1.3); Monocytes % (auto) 9.5 % (0.0-12.0); Neutrophils % (auto) 59.6 % (37.0-80.0); Nucleated Red Blood Cells % 0.1 %; Platelet Count (auto) 300 10^3/uL (140-450); Red Blood Cells 3.99 10^6/uL (4.0-5.20); Red Cell Distribution Width 23.1 % (11.8-14.3); White Blood Cell 7.9 10^3/uL (4.4-10.8)
[2024-06-16 08:00] LABS: Anion Gap 6 (5-15); Carbon Dioxide 24 mmol/L (20-31); Chloride 109 mmol/L (98-107); Potassium 3.8 mmol/L (3.5-5.1); Sodium 139 mmol/L (136-145)
[2024-06-16 08:01] LABS: Calcium 9.5 mg/dL (8.7-10.4)
[2024-06-16 08:06] LABS: Glucose 83 mg/dL (74-106)
[2024-06-16 08:08] LABS: BUN/Creatinine Ratio 9.8 (10.0-20.0); Blood Urea Nitrogen < 5 mg/dL (9-23)
--- NOTE | 2024-06-16 23:21 | DVHPN2 ---
Subjective History of Present Illness This is a 74-year-old female with PMH of crohn's disease with s/p left ileostomy, HTN, osteoporosis, anemia, thyroid disease, presented to the ED via EMS for a chief complaint of abdominal pain and shortness of breath s/p iron infusion today. EMS reports patient was at a facility receiving her infusion, began having stabbing diffuse abdominal pain. Per staff, patient had similar symptom last week with the infusion, this time they gave her 25mg of Benadryl assuming it was an allergic reaction but pain persisted and also EMS administrated 100mcg of Fentanyl IV. On admission patient was hypotensive, tachycardic and desaturating to 89% and put the patient on 4 L oxygen with saturation 94-96%. - 06/16-she is feeling better but she continues to have abdominal pain. She had some cereal before going to the infusion appointment where she gets the IV iron. 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 No venous and illness, no sick contacts. She had history of terrible constipation secondary to use of iron supplements, hence she is on IV ferrous Reviewed: H&P Changes from previous H/P or p: No Changes General: Per HPI Gastrointestinal: Abdominal Pain Musculoskeletal: No other, No neck pain, No shoulder pain, No arm pain, No back pain, No hand pain, No leg pain, No foot pain Skin: No Rash, No Lesions, No Jaundice, No Bruising, No Other Objective Vitals Vital Signs Date Time Temp Pulse Resp B/P (MAP) Pulse Ox O2 Delivery O2 Flow Rate FiO2 06/16/24 22:00 97.7 76 16 100/49 (66) 94 97.7 06/16/24 08:00 Room Air* 0 21 Intake/Output Intake and Output 06/16/24 07:00 Intake Total 942.50 ml Output Total 1850 ml Balance -907.50 ml Intake Oral 110 ml IV Total 832.50 ml Output Urine Total 1600 ml Stool Total 250 ml # Voids 2 Exam GEN: Appears cachectic, worrisome but NAD. HEENT: NC/AT; MMM. CV: RRR, no m/r/g. LUNGS: CTAB, no w/r/c. ABD: Soft, NT/ND, NBS, no masses or organomegaly. Epigastrium tender palpation EXT: skin Warm, well perfused. no rashes. No clubbing, cyanosis, or edema. NEURO: Ambulating with no limitations. No focal deficits. Medications Current Medications Medications Dose Ordered Sig/Catrachita Route Start Time Stop Time Status Last Admin Dose Admin Acetaminophen 325 mg Q4HP PRN PO 06/14/24 20:45 Acetaminophen/ Hydrocodone Bitart 1 tab Q4HP PRN PO 06/14/24 20:45 06/16/24 08:17 1 TAB Ondansetron HCl 4 mg Q4HP PRN IV 06/14/24 20:45 Nitroglycerin 0.4 mg Q5MINP PRN SL 06/14/24 20:45 Morphine Sulfate 2 mg Q30M PRN IV 06/14/24 20:45 Pantoprazole Sodium 40 mg DAILY IV 06/15/24 10:00 06/16/24 09:55 40 MG Ceftriaxone Sodium 50 ml @ 100 mls/hr DAILY@2100 IV 06/14/24 23:00 06/15/24 20:40 100 MLS/HR Metronidazole 100 ml @ 100 mls/hr Q8HR IV 06/14/24 23:00 06/16/24 13:35 100 MLS/HR Ergocalciferol 50,000 unit Q7D PO 06/15/24 10:00 06/15/24 11:10 50,000 UNIT Enoxaparin Sodium 40 mg DAILY SC 06/15/24 10:00 06/16/24 09:56 40 MG Diphenhydramine HCl 25 mg Q8HP PRN PO 06/15/24 09:45 06/16/24 13:34 25 MG Laboratory Results Laboratory Tests 06/16/24 06:34 Chemistry Test 06/16/24 06:34 Calcium Level 9.5 mg/dL (8.7-10.4) Urinalysis Test 06/14/24 16:28 Urine Color Light-yellow (Yellow) Urine Clarity Clear (Clear) Urine pH 5.0 (5.0-9.0) Urine Specific [place] 1.011 (1.001-1.035) Urine Protein 1+ (Negative) H Urine Ketones Negative (Negative) Urine Blood Trace /uL (Negative) H Urine Nitrite Negative (Negative) Urine Bilirubin Negative (Negative) Urine Urobilinogen Normal mg/dL (Negative) Urine Leukocyte Esterase Negative /uL (Negative) Urine RBC 2 /hpf (0 - 4) Urine WBC 3 /hpf (0 - 5) Urine Squamous Epithelial Cells Few /hpf (<5) Urine Bacteria Few /hpf (None Seen) H Urine Mucus Few (None Seen) Urine Glucose Normal mg/dL (Normal) Microbiology Microbiology Date/Time Source Procedure Growth Status 06/15/24 04:20 Nose MRSA Screen - Final Complete Labs and/or images reviewed: Labs reviewed by me, Image(s) reviewed by me Assessment/Plan Assessment/Plan - 06/16-she is feeling better but she continues to have abdominal pain. She had some cereal before going to the infusion appointment where she gets the IV iron. 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 No venous and illness, no sick contacts. She had history of terrible constipation secondary to use of iron supplements, hence she is on IV ferrous Tentative plan: She still having some abdominal pain although she is now tolerating p.o. diet. On CD she has enteritis currently on ceftriaxone/Flagyl. If pain continues to improve, plan to discharge home and follow up with Hematology. # Intractable abdominal pain likely due to gastric enteritis. -discontinued IV fluids - CT abdomen pelvis revealed diffuse thickening of the bowel wall possible enteritis. - IV ceftriaxone 1 g daily and IV metronidazole 500 mg 8 hourly. - advanced diet regular - [place] 5/325 mg q.4 p.r.n. - IV morphine was not given due to hypotension - IV ondansetron 4 mg q.4 p.r.n. # Hypotension ? Infectious etiology -of Levophed., stable blood pressure. -continue IV antibiotic with ceftriaxone and metronidazole. # Chronic microcytic hypochromic anemia likely due to iron deficiency. -hold IV iron given intolerance. # status post left ileostomy, history of small-bowel obstruction. # Vitamin D deficiency - Vitamin-D 56516 units Q 7D # Elevated alkaline phosphatase, likely due to bone pathology # PUD prophylaxis - Protonix 40 mg IV daily # DVT prophylaxis - Lovenox 40 mg sc daily Plan discussed with: Patient Date of Service: Jun 16, 2024 Billing Provider: VITALY CAMPOS MD Common Visit Codes: [id number] INP/OBS CARE(HIGH) VITALY CAMPOS MD Jun 16, 2024 23:21
[2024-06-17 05:00] VITALS: BP 90/54; PULSE 70; RESP 19; TEMP 97.7; O2SAT 95
[2024-06-17 07:42] LABS: Basophils # (auto) 0 10 ^3/uL (0-0.2); Basophils % (auto) 0.5 % (0.0-2.0); Eosinophils # (auto) 0.4 10 ^3/uL (0-0.8); Hemoglobin 8.6 g/dL (12.2-16.2); Lymphocytes # (auto) 1.8 10 ^3/uL (0.4-5.4); Monocytes # (auto) 0.5 10 ^3/uL (0-1.3); Monocytes % (auto) 8.4 % (0.0-12.0)
[2024-06-17 07:46] LABS: Eosinophils % (auto) 6.9 % (0.0-7.0); Hematocrit 28.9 % (36.0-46.0); Lymphocytes % (auto) 29.4 % (10.0-50.0); Mean Corpuscular Hemoglobin 21.6 pg (28.0-32.0); Mean Corpuscular Hgb Conc. 29.8 g/dL (32.0-36.0); Mean Corpuscular Volume 72.5 fL (80.0-100.0); Neutrophils # (auto) 3.4 10 ^3/uL (1.6-8.6); Neutrophils % (auto) 54.8 % (37.0-80.0); Nucleated Red Blood Cells % 0.2 %; Platelet Count (auto) 335 10^3/uL (140-450); Red Blood Cells 3.99 10^6/uL (4.0-5.20); Red Cell Distribution Width 23.2 % (11.8-14.3); White Blood Cell 6.1 10^3/uL (4.4-10.8)
[2024-06-17 07:55] LABS: Alanine Aminotransferase 29 U/L (7-40); Albumin 3.7 g/dL (3.2-4.8); Alkaline Phosphatase 144 U/L (46-116); Anion Gap 6 (5-15); Aspartate Aminotransferase 20 U/L (13-40); Calcium 8.8 mg/dL (8.7-10.4); Carbon Dioxide 24 mmol/L (20-31); Chloride 111 mmol/L (98-107); Glucose 88 mg/dL (74-106); Potassium 3.7 mmol/L (3.5-5.1); Sodium 141 mmol/L (136-145)
[2024-06-17 07:56] LABS: Bilirubin, Total 0.3 mg/dL (0.2-1.0); Total Protein 6.9 g/dL (5.7-8.2)
[2024-06-17 08:00] VITALS: BP 99/44; PULSE 69; PULSE 70; RESP 18; TEMP 98; O2SAT 93
[2024-06-17 08:03] LABS: BUN/Creatinine Ratio 11.1 (10.0-20.0); Blood Urea Nitrogen < 5 mg/dL (9-23)
[2024-06-17 12:58] VITALS: BP 110/53; PULSE 85; RESP 15; TEMP 98; O2SAT 93
[2024-06-17] MEDS ORDERED: METR-344 PO (15:50)
[2024-06-17] MEDS ORDERED: LEVO750T40 PO (15:50)
[2024-06-17 17:00] VITALS: BP 107/50; PULSE 71; RESP 16; TEMP 98.3; O2SAT 92
--- NOTE | 2024-06-17 17:19 | DVHDSRES ---
Discharge Summary Date of Admission Resident Creating Document: KEEGAN RETANA RESIDENT Jun 14, 2024 at 20:35 Date of Discharge: Jun 17, 2024 Admitting Diagnosis abdominal pain and shortness of breath Labs/Diagnostic Data: Laboratory Results Test 06/17/24 06:33 06/15/24 03:50 06/14/24 22:30 06/14/24 16:28 White Blood Count 6.1 10^3/uL (4.4-10.8) Red Blood Count 3.99 10^6/uL (4.0-5.20) Hemoglobin 8.6 g/dL (12.2-16.2) Hematocrit 28.9 % (36.0-46.0) Mean Corpuscular Volume 72.5 fL (80.0-100.0) Mean Corpuscular Hemoglobin 21.6 pg (28.0-32.0) Mean Corpuscular Hemoglobin Concent 29.8 g/dL (32.0-36.0) Red Cell Distribution Width 23.2 % (11.8-14.3) Platelet Count 335 10^3/uL (140-450) Mean Platelet Volume 7.3 fL (6.9-10.8) Neutrophils (%) (Auto) 54.8 % (37.0-80.0) Lymphocytes (%) (Auto) 29.4 % (10.0-50.0) Monocytes (%) (Auto) 8.4 % (0.0-12.0) Eosinophils (%) (Auto) 6.9 % (0.0-7.0) Basophils (%) (Auto) 0.5 % (0.0-2.0) Neutrophils # (Auto) 3.4 10 ^3/uL (1.6-8.6) Lymphocytes # (Auto) 1.8 10 ^3/uL (0.4-5.4) Monocytes # (Auto) 0.5 10 ^3/uL (0-1.3) Eosinophils # (Auto) 0.4 10 ^3/uL (0-0.8) Basophils # (Auto) 0 10 ^3/uL (0-0.2) Nucleated Red Blood Cells 0.2 % Sodium Level 141 mmol/L (136-145) Potassium Level 3.7 mmol/L (3.5-5.1) Chloride Level 111 mmol/L (98-107) Carbon Dioxide Level 24 mmol/L (20-31) Anion Gap 6 (5-15) Blood Urea Nitrogen < 5 mg/dL (9-23) Creatinine 0.45 mg/dL (0.550-1.02) Glomerular Filtration Rate Calc 101 mL/min (>90) BUN/Creatinine Ratio 11.1 (10.0-20.0) Serum Glucose 88 mg/dL (74-106) Calcium Level 8.8 mg/dL (8.7-10.4) Total Bilirubin 0.3 mg/dL (0.2-1.0) Aspartate Amino Transferase (AST) 20 U/L (13-40) Alanine Aminotransferase (ALT) 29 U/L (7-40) Alkaline Phosphatase 144 U/L (46-116) Total Protein 6.9 g/dL (5.7-8.2) Albumin 3.7 g/dL (3.2-4.8) Free Thyroxine (T4) Calculated 0.96 ng/dL (0.89-1.76) Free Triiodothyronine (T3) pg/mL 2.21 pg/mL (2.3-4.2) Hemoglobin A1c 4.6 % A1C (<5.7) B-Type Natriuretic Peptide 212.16 pg/mL (0-100) Vitamin B12 Level 278 pg/mL (211-911) Vitamin D 25-Hydroxy 10.3 ng/mL (30.0-100) Thyroid Stimulating Hormone (TSH) 0.42 uIU/mL (0.55-4.78) Urine Color Light-yellow (Yellow) Urine Clarity Clear (Clear) Urine pH 5.0 (5.0-9.0) Urine Specific [place] 1.011 (1.001-1.035) Urine Protein 1+ (Negative) Urine Ketones Negative (Negative) Urine Blood Trace /uL (Negative) Urine Nitrite Negative (Negative) Urine Bilirubin Negative (Negative) Urine Urobilinogen Normal mg/dL (Negative) Urine Leukocyte Esterase Negative /uL (Negative) Urine RBC 2 /hpf (0 - 4) Urine WBC 3 /hpf (0 - 5) Urine Squamous Epithelial Cells Few /hpf (<5) Urine Bacteria Few /hpf (None Seen) Urine Mucus Few (None Seen) Urine Glucose Normal mg/dL (Normal) Other Laboratory Tests 06/17/24 06:33 Brief Hx & Hospital Course: Patient is 74-year-old female with past medical history of small-bowel obstruction status post left ileostomy, hypertension, osteoporosis, chronic iron-deficiency anemia who presented to EMS with a chief complaint of abdominal pain and shortness of breath status post iron infusion. Patient was endorsing headache and abdominal pain after receiving IV iron infusion. Patient was advised to come to emergency department for further evaluation. CT abdomen was done which showed diffuse thickening of bowel wall possible enteritis. Patient is started on IV ceftriaxone and IV metronidazole. Patient continued clear liquid diet. Initially patient was found to be hypotensive , started on Levophed, IV fluid bolus and maintenance IV fluids. Levophed was titrated down and continued on IV fluid and IV antibiotic. For chronic microcytic hypochromic anemia due to iron-deficiency anemia, patient will follow with his director of career resources oncology Dr. sim in outpatient clinic. Over the course of hospitalization patient abdominal pain improved, if denying shortness of breath. Patient will be discharged home with IV antibiotic Levaquin and metronidazole for another five days, patient will follow with her hematology oncologist in outpatient setting and patient will need primary care for that patient will be get established primary care. Patient agreed with the discharge plan and understand verbally. time spent in discharge planning was 39 mins Condition at Discharge: Stable Final Diagnosis/Problems List # Intractable abdominal pain likely due to an allergic reaction from the Iron Infusion. # intolerance of IV iron infusion # Hypotension # Chronic microcytic hypochromic anemia likely due to iron deficiency. # History of Crohn's disease with status post left ileostomy # Vitamin D deficiency # Elevated alkaline phosphatase, likely due to bone pathology Discharge Disposition: Home Discharge Instruct/Medications Diet: Cardiac 2g Na,low cholest Activity: No Restrictions, As Tolerated Follow Up/Referral: -FOLLOW UP WITH PCP IN 1 WEEK Medications: -SEE PRESCRIPTION Discharge Statement: "Patient was advised to return to the ER or call 911 if any headaches, dizziness, shortness of breath, chest pain, abdominal pain, bleeding, fevers, or worsening of medical condition. Patient was counseled about treatment plan, medications, possible side effects, patientverbalized understanding. All questions were answered to the best of my ability. This discharge took greater then 30 minutes in planning, reviewing documentation, counseling the patient, and discussing with other team members." ASSESSMENT ASSESSMENT Assessment INTRACTABLE ABDOMINAL PAIN LIKELY DUE TO GASTRIC ENTERITIS. Date of Service: Jun 17, 2024 Billing Provider: MELISSA CLEMENS MD Common Visit Codes: [id number] DISCH DAY >30min KEEGAN RETANA RESIDENT Jun 17, 2024 17:18 MELISSA CLEMENS MD Jun 20, 2024 09:15
== END 2024-06-17 19:30 | disposition home or self-care (01) | DRG 373 ==
LOC: EDBD 13:40 → ER 13:40 → OVERFLOW 20:35 → ICU WEST 06-15 04:12 → TELE-WESTW 06-15 21:55
PROVIDERS: ADMIT Internal Medicine; ATTEND Internal Medicine
PROC: 05HC33Z Insertion of Infusion Device into Left Basilic Vein, Percutaneous Approach (ICD-10-PCS; principal; 2024-06-15)
PROC: B54NZZA Ultrasonography of Left Upper Extremity Veins, Guidance (ICD-10-PCS; 2024-06-15)
DX: A04.9 Bacterial intestinal infection, unspecified (principal); D50.9 Iron deficiency anemia, unspecified; E55.9 Vitamin D deficiency, unspecified; I10 Essential (primary) hypertension; M81.0 Age-related osteoporosis without current pathological fracture; R74.8 Abnormal levels of other serum enzymes; T45.4X5A Adverse effect of iron and its compounds, initial encounter; Z90.710 Acquired absence of both cervix and uterus; Z93.2 Ileostomy status; Y92.89 Other specified places as the place of occurrence of the external cause
CPT/HCPCS: 36415; 71045; 74176; 80048; 80053; 81001; 82306; 82607; 83036; 83880; 84439; 84443; 84481; 85025; 87081; 97116; 97163; 97530; G0378; J2470; J3490

== ENCOUNTER → 2025-05-22 | Outpatient (CLI) | payer MEDICARE, MEDICAID ==
[~2025-05-22] MED LIST changes: +LEVO750T40 PO; +METR-344 PO
[2025-05-22 10:10] LABS: Hematocrit 27.3 % (36.0-46.0); Hemoglobin 8.4 g/dL (12.2-16.2); Mean Corpuscular Hemoglobin 22.6 pg (28.0-32.0); Mean Corpuscular Volume 73.0 fL (80.0-100.0); Nucleated Red Blood Cells % 0.0 %
[2025-05-22 10:37] LABS: Alanine Aminotransferase 24 U/L (7-40); Albumin 4.2 g/dL (3.2-4.8); Alkaline Phosphatase 113 U/L (46-116); Anion Gap 10 (5-15); BUN/Creatinine Ratio 18.5 (10.0-20.0); Blood Urea Nitrogen 10 mg/dL (9-23); Calcium 9.2 mg/dL (8.7-10.4); Carbon Dioxide 22 mmol/L (20-31); Cholesterol 103 mg/dL (< 200); Glucose 87 mg/dL (74-106); Potassium 4.0 mmol/L (3.5-5.1); Sodium 139 mmol/L (136-145); Triglycerides 76 mg/dL (< 150)
[2025-05-22 10:38] LABS: Bilirubin, Total 0.4 mg/dL (0.2-1.0)
[2025-05-22 11:22] LABS: Chloride 107 mmol/L (98-107); HDL Cholesterol 18 mg/dL (40-59); Total Protein 8.4 g/dL (5.7-8.2)
== END | disposition home or self-care (01) ==
LOC: LAB 09:11
PROVIDERS: ATTEND Internal Medicine
DX: E55.9 Vitamin D deficiency, unspecified (principal); D64.9 Anemia, unspecified; J44.9 Chronic obstructive pulmonary disease, unspecified; E11.9 Type 2 diabetes mellitus without complications; Z12.11 Encounter for screening for malignant neoplasm of colon; Z00.00 Encounter for general adult medical examination without abnormal findings
CPT/HCPCS: 36415; 80053; 80061; 83036; 84443; 85025